=== PATIENT | male | born 1955 | race Caucasian/White ===

== ENCOUNTER 2020-12-01 11:00 | Outpatient (REF) | payer MEDICARE, SELFPAY ==
[2020-12-01 13:59] LABS: MANUAL DIFF FLAG NO
[2020-12-01 14:03] LABS: Basophils Percent Auto 0.6 % (0-2); Eosinophils Absolute Auto 0.1 X10*3/uL (0.0-0.4); Eosinophils Percent Auto 1.7 % (0-4); Hematocrit 46.4 % (42-52); Hemoglobin 15.2 g/dl (14.0-18.0); Imm Gran Abs Auto 0.01 X10*3/uL (0.00-0.03); Imm Gran Pct Auto 0.2 % (0.0-0.4); Lymphocytes Absolute Auto 1.5 X10*3/uL (1.2-4.9); Lymphocytes Percent Auto 28.1 % (20-40); Mean Corpuscular HGB Conc 32.8 g/dl (31.0-36.0); Mean Corpuscular Hemoglobin 30.5 pg (27.0-33.0); Mean Corpuscular Volume 93.2 fL (80-98); Monocytes Absolute Auto 0.3 X10*3/uL (0.1-1.2); Monocytes Percent Auto 5.2 % (2-11); Neutrophils Absolute Auto 3.3 X10*3/uL (2.0-8.3); Neutrophils Percent Auto 64.2 % (45-73); Platelet Count 294 X10*3/uL (160-400); Red Blood Count 4.98 X10*6/uL (4.60-5.80); Red Cell Distribution Width 12.2 % (11.0-16.0); White Blood Count 5.2 X10*3/uL (4.8-10.8)
[2020-12-01 14:25] LABS: Alanine Aminotransferase 30 U/L (0-40); Albumin Level 4.6 g/dL (3.5-5.0); Alkaline Phosphatase 65 U/L (39-117); Anion Gap 13 (12-20); Aspartate Amino Transferase 21 U/L (5-37); Blood Urea Nitrogen 16 mg/dL (9-16); Calcium 9.5 mg/dL (8.4-10.2); Carbon Dioxide 30 mmol/L (22-29); Chloride 104 mmol/L (96-108); Cholesterol 176 mg/dL; Estimated Glomerular Filt Rate > 60; Glucose Random 79 mg/dL (60-115); HDL Cholesterol 49 mg/dL; LDL Cholesterol Calculated 112 mg/dl; Potassium 4.5 mmol/L (3.3-5.1); Sodium 142 mmol/L (135-145); Total Protein 7.3 g/dL (6.5-8.0); Triglycerides 79 mg/dL
[2020-12-01 14:48] LABS: Prostate Specific Antigen Scr 1.85 ng/mL (<0.05-4.0); Thyroid Stimulating Hormone 2.32 uIU/mL (0.32-4.0)
[2020-12-01 15:35] LABS: Folate 12.2 ng/mL (> or = 4.0); Vitamin B12 988 pg/mL (200-900)
[2020-12-02 08:16] LABS: Follicle Stimulating Hormone 9.8 mIU/mL (1.6-8.0); Lutenizing Hormone 8.2 mIU/mL (1.6-15.2); Prolactin 6.5 ng/mL (2.0-18.0)
[2020-12-05 09:37] LABS: Testosterone, Total 470 ng/dL (250-1100)
== END 2020-12-01 11:01 | disposition home or self-care (01) ==
LOC: HO.HMGCLDS 11:00
PROVIDERS: PCP Internal Medicine; Visit Provider Internal Medicine
DX: E66.9 Obesity, unspecified (principal); N52.9 Male erectile dysfunction, unspecified; E78.00 Pure hypercholesterolemia, unspecified
CPT/HCPCS: 36415; 80053; 80061; 82607; 82746; 83001; 83002; 84146; 84153; 84403; 84439; 84443; 85025

== ENCOUNTER 2021-04-26 12:50 | Outpatient (REF) | payer MEDICARE, SELFPAY ==
--- NOTE | ~2021-04-26 | XR_ITS ---
EXAMINATION: XR CHEST CLINICAL INFORMATION: Cough. COMPARISON: Chest 02/03/2014 TECHNIQUE: 2 views of the chest were obtained. FINDINGS: The lungs are well-expanded with a moderate sized 2.8 cm x 2.12 cm nodule right upper lobe.. No additional nodules seen. There is no acute consolidation, pleural effusion or thickening. The heart size and pulmonary vascularity is normal. No gross bony abnormality seen. XR/XR chest 2V IMPRESSION: 2.8 cm new nodule right upper lobe. No acute cardiopulmonary process seen.
[2021-04-26 14:55] LABS: Influenza A PCR NEGATIVE (Negative); Influenza B PCR NEGATIVE (Negative); Resp Syncy Virus RNA Qual PCR NEGATIVE (Negative); SARS COV2 PCR INHOUSE NEGATIVE (Negative)
== END 2021-04-26 12:51 | disposition home or self-care (01) ==
LOC: HO.HMGCX 12:50
PROVIDERS: PCP Internal Medicine; Visit Provider Family Medicine
DX: Z20.822 Contact with and (suspected) exposure to COVID-19 (principal); R05.9 Cough, unspecified; R06.2 Wheezing
CPT/HCPCS: 0241U; 36415; 71046

== ENCOUNTER 2021-09-28 10:47 | Outpatient (REF) | payer MEDICARE, SELFPAY ==
[2021-09-28 13:47] LABS: MANUAL DIFF FLAG NO
[2021-09-28 13:53] LABS: Basophils Percent Auto 0.6 % (0-2); Eosinophils Absolute Auto 0.2 X10*3/uL (0.0-0.4); Eosinophils Percent Auto 3.2 % (0-4); Hematocrit 46.7 % (42.0-52.0); Hemoglobin 15.5 g/dl (14.0-18.0); Imm Gran Abs Auto 0.02 X10*3/uL (0.00-0.03); Imm Gran Pct Auto 0.3 % (0.0-0.4); Lymphocytes Absolute Auto 1.5 X10*3/uL (1.2-4.9); Lymphocytes Percent Auto 21.3 % (20-40); Mean Corpuscular HGB Conc 33.2 g/dl (31.0-36.0); Mean Corpuscular Hemoglobin 30.9 pg (27.0-33.0); Mean Corpuscular Volume 93.2 fL (80.0-98.0); Mean Platelet Volume 10.2 fL (9.4-12.4); Monocytes Absolute Auto 0.4 X10*3/uL (0.1-1.2); Monocytes Percent Auto 5.7 % (2-11); Neutrophils Absolute Auto 4.7 x10*3/uL (2.0-8.3); Neutrophils Percent Auto 68.9 % (45-73); Platelet Count 287 X10*3/uL (160-400); Red Blood Count 5.01 X10*6/uL (4.60-5.80); Red Cell Distribution Width 12.4 % (11.0-16.0); White Blood Count 6.9 X10*3/uL (4.8-10.8)
[2021-09-28 14:14] LABS: Alanine Aminotransferase 21 U/L (0-40); Albumin Level 4.2 g/dL (3.5-5.0); Alkaline Phosphatase 74 U/L (39-117); Anion Gap 12 (12-20); Aspartate Amino Transferase 18 U/L (5-37); Bilirubin Total 0.8 mg/dL (0.0-1.0); Blood Urea Nitrogen 14 mg/dL (9-16); Calcium 9.4 mg/dL (8.4-10.2); Carbon Dioxide 29 mmol/L (22-29); Chloride 103 mmol/L (96-108); Cholesterol 169 mg/dL; Estimated Glomerular Filt Rate > 60; Glucose Random 93 mg/dL (60-115); HDL Cholesterol 49 mg/dL; LDL Cholesterol Calculated 107 mg/dl; Potassium 4.4 mmol/L (3.3-5.1); Sodium 140 mmol/L (135-145); Total Protein 6.9 g/dL (6.5-8.0); Triglycerides 69 mg/dL
[2021-09-28 14:36] LABS: Free T4 (Free Thyroxine) 0.96 ng/dL (0.71-1.85); Prostate Specific Antigen Scr 1.63 ng/mL (<0.05-4.0); Thyroid Stimulating Hormone 3.35 uIU/mL (0.32-4.0)
[2021-09-28 14:37] LABS: Folate 9.9 ng/mL (> or = 4.0); Vitamin B12 845 pg/mL (200-900)
== END 2021-09-28 10:48 | disposition home or self-care (01) ==
LOC: HO.HMGCLDS 10:47
PROVIDERS: PCP Internal Medicine; Visit Provider Internal Medicine
DX: E66.9 Obesity, unspecified (principal); E78.00 Pure hypercholesterolemia, unspecified; Z12.5 Encounter for screening for malignant neoplasm of prostate
CPT/HCPCS: 36415; 80053; 80061; 82607; 82746; 84153; 84439; 84443; 85025

== ENCOUNTER 2021-09-30 08:22 | Outpatient (REF) | payer MEDICARE, SELFPAY ==
--- NOTE | ~2021-09-30 | CT_ITS ---
EXAMINATION: CT CHEST WITH CONTRAST CLINICAL INFORMATION: Solitary pulmonary nodule. COMPARISON: Chest x-ray 04/26/2021. TECHNIQUE: Multidetector volumetric CT imaging of the chest was obtained after the administration of 50 mL of Omnipaque 350 intravenous contrast without immediate adverse reactions. Axial MIP volume rendering provided. Sagittal and coronal reformatted images were obtained. This CT examination was performed using dose optimization techniques as appropriate, variously including the following: *Automated exposure control *Adjustment of mA and/or kV according to patient size (this includes techniques or standardized protocols for targeted exams where dose is matched to indication/reason for exam; i.e. 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 LUNGS: The lungs are well expanded and clear of acute pneumonic process. There is a large solid nodule right upper lobe measuring 3.2 x 2.0 x 2.2 cm on axial image 18/3 and sagittal image 75/7. It measures 103 Hounsfield units. No additional lesion seen. There is mild thickening of left lateral major fissure. There is 4 mm nodular thickening left major fissure axial image 66/8. MEDIASTINUM: The thyroid lobes are symmetric and normal. Heart size and the great vessels are normal caliber. Central trachea and the bronchi are widely patent. There is no pericardial effusion seen. There are no coronary artery calcifications. PLEURA: There is no pleural effusion. No pleural mass or thickening. AXILLA: There are small shotty lymph nodes seen in bilateral axilla. The chest wall appears unremarkable. UPPER ABDOMEN: Visualized liver, spleen, pancreas and bilateral adrenal glands unremarkable. There are bilateral peripelvic renal cysts. OSSEOUS STRUCTURES: No lytic or sclerotic process seen. CT/CT chest w con IMPRESSION: Large right upper lobe solid nodule. Recommend PET/CT exam and if positive CT-guided nodule biopsy. Fleischner guidelines were followed.
== END 2021-09-30 08:23 | disposition home or self-care (01) ==
LOC: HO.CT 08:22
PROVIDERS: Visit Provider Internal Medicine
DX: R91.1 Solitary pulmonary nodule (principal)
CPT/HCPCS: 71260

== ENCOUNTER → 2021-10-14 09:12 | Outpatient (BNVA) | payer MEDICARE, SELFPAY | PROVIDERS: PCP Internal Medicine; Visit Provider Surgery | DX: R91.1 Solitary pulmonary nodule (principal) | CPT/HCPCS: 99202 ==

== ENCOUNTER 2021-10-19 09:49 | Outpatient (REF) | payer MEDICARE, SELFPAY ==
--- NOTE | 2021-10-19 10:02 | PFT_ITS ---
INDICATION: Pulmonary nodule. SPIROMETRY: FEV1 to FVC 78% with an FEV1 of 2.76 L, which is 82% predicted. FVC of 3.53 L, which is 78% predicted. No significant response to bronchodilators noted. Maximum voluntary ventilation 82% predicted. LUNG VOLUMES: Total lung capacity 84% predicted with an expiratory reserve volume of 53% predicted. DIFFUSION CAPACITY: DLCO 84% predicted. COMPARISONS: None. INTERPRETATION: No obstructive nor restrictive ventilatory defects identified. No significant response to bronchodilators noted. Lung volumes are low normal, likely secondary to the elevated BMI and diffusion capacity is within normal limits. Clinical correlation warranted. MD EDDIE Bourgeois/CLARISSA / [id number]
== END 2021-10-19 09:50 | disposition home or self-care (01) ==
LOC: HO.RESP 09:49
PROVIDERS: PCP Internal Medicine; Visit Provider Surgery
DX: R91.1 Solitary pulmonary nodule (principal)
CPT/HCPCS: 94060; 94727; 94729

== ENCOUNTER 2021-10-25 11:10 | Outpatient (REF) | payer MEDICARE, SELFPAY ==
--- NOTE | ~2021-10-25 | PE_ITS ---
EXAMINATION: Fluorine-18 FDG PET/CT Scan CLINICAL INDICATION: Initial treatment management. Pulmonary nodule. PROCEDURE: 66 minutes following the intravenous administration of 20.6 mCi of fluorine 18 FDG, images from the base of the skull to the mid thighs were obtained using a combined PET/CT scanner with CT scan based attenuation correction. No oral contrast was administered. No intravenous contrast was administered. Transverse, coronal, sagittal, and volume reconstruction projections were obtained. The patient's blood glucose as determined by a finger stick, was 84 mg/dl immediately prior to injection. Total CT exam dose-length product 908.77 mGy-cm * These CT images were obtained using dose optimization techniques as appropriate, variously including the following: Automated exposure control * Adjustment of mA and/or kV according to patient size (this includes techniques or standardized protocols for targeted exams where dose is matched to indication/reason for exam; i.e. extremities or head) * Use of iterative reconstruction technique COMPARISON: No previous PET/CT scan is available for comparison. CT scan of the chest dated 09/30/2021 is available for comparison. FINDINGS: (Slice numbers described in this report are numbered superiorly to inferiorly with slice #1 in the head) NECK AND VISUALIZED HEAD: There is a small discrete focus of abnormally increased FDG activity abutting the right side of the upper trachea and within the right thyroid lobe, SUVmax 5.2, slice 60/267 there is a subtle subcentimeter hypodensity suggested at this site on the corresponding CT images but this is not well visualized. However, on the prior diagnostic CT scan performed with intravenous contrast dated 09/30/2021 there is a 0.7 x 0.4 cm hypodensity at this site in the right thyroid lobe that corresponds very well to this focus which is at the level of the sternal notch. No other foci of abnormal FDG activity are present in the neck or visualized head. All the other activity in this region appears physiological. There is no cervical lymphadenopathy. THORAX: There is a mildly FDG avid solid right upper lobe pulmonary nodule, SUVmax 4.4, slice 74/267. 3.1 x 2.1 cm in largest transverse dimensions at approximately 2.6 cm cephalocaudad. There is a 0.4 cm fissural nodule in the left interlobar fissure, slice 87/267, too small to be characterized on the FDG PET images. No other pulmonary nodules are visualized. The appearance of the lungs is unchanged from the 09/30/[address] scan. There is no pleural or pericardial fluid or pneumothorax. There is a weakly FDG avid upper right paratracheal lymph node that shows SUVmax 2.0. This measures 0.7 x 0.6 cm in largest transverse dimensions on the CT images, and this FDG activity is abnormal for such a small lymph node which is too small to be well characterized on the FDG PET images. There is no additional mediastinal, supraclavicular, or axillary lymphadenopathy. ABDOMEN AND PELVIS: There are no foci of abnormal FDG activity in the abdomen or pelvis. There is mild FDG activity throughout the gastrointestinal tract without a suspicious focal component. There is diverticulosis without evidence of diverticulitis. The hollow viscera are otherwise unremarkable. The liver, spleen, gallbladder, adrenal glands, and pancreas are unremarkable. Bilateral hypodense renal cysts are present, and most of these are visualized on the CT scan of the chest dated 09/30/2021 and appear unchanged but the more inferior of these cysts are outside the [id number] of this CT scan and cannot be compared. These are all photopenic on the FDG PET images and likely represent simple cysts. MUSCULOSKELETAL: There are no foci of abnormal FDG activity present in the osseous structures. There are diffuse degenerative changes in the spine and a mild thoracolumbar scoliosis are noted. VASCULAR: No significant abnormalities are present. PET/PET CT fusion skull to thigh IMPRESSION: 1. An FDG avid right upper lobe pulmonary mass is likely malignant. 2. An FDG avid subcentimeter right thyroid nodule is noted and is strongly suspicious for a thyroid malignancy. Further characterization of this with ultrasound-guided fine-needle aspirate is recommended. 3. A small subcentimeter upper right paratracheal lymph node is present and is suspicious for malignancy because of the intensity of FDG activity in such a small lymph node. 4. No additional abnormalities suspicious for other metastatic or malignant lesions are noted.
== END 2021-10-25 11:11 | disposition home or self-care (01) ==
LOC: HO.PET 11:10
PROVIDERS: PCP Internal Medicine; Visit Provider Surgery
DX: Z13.89 Encounter for screening for other disorder (principal)

== ENCOUNTER → 2021-12-02 08:46 | Outpatient (BNVA) | payer MEDICARE, SELFPAY | PROVIDERS: PCP Internal Medicine; Visit Provider Surgery | DX: D3A.090 Benign carcinoid tumor of the bronchus and lung (principal); R91.1 Solitary pulmonary nodule | CPT/HCPCS: 99212 ==

== ENCOUNTER → 2022-01-03 15:33 | Outpatient (BNV) | payer MEDICARE, SELFPAY | PROVIDERS: PCP Internal Medicine; Referring Provider Physician Assistant; Visit Provider Internal Medicine | DX: E04.1 Nontoxic single thyroid nodule (principal) | CPT/HCPCS: 99205; 99214 ==

== ENCOUNTER 2022-01-11 14:06 | Outpatient (REF) | payer MEDICARE, SELFPAY ==
[2022-01-11 16:26] LABS: MANUAL DIFF FLAG NO
[2022-01-11 16:31] LABS: Basophils Percent Auto 0.8 % (0-2); Eosinophils Absolute Auto 0.3 X10*3/uL (0.0-0.4); Eosinophils Percent Auto 5.7 % (0-4); Hematocrit 46.6 % (42.0-52.0); Hemoglobin 15.6 g/dl (14.0-18.0); Imm Gran Abs Auto 0.02 X10*3/uL (0.00-0.03); Imm Gran Pct Auto 0.4 % (0.0-0.4); Lymphocytes Absolute Auto 0.8 X10*3/uL (1.2-4.9); Lymphocytes Percent Auto 15.5 % (20-40); Mean Corpuscular HGB Conc 33.5 g/dl (31.0-36.0); Mean Corpuscular Hemoglobin 31.3 pg (27.0-33.0); Mean Corpuscular Volume 93.4 fL (80.0-98.0); Mean Platelet Volume 9.8 fL (9.4-12.4); Monocytes Absolute Auto 0.6 X10*3/uL (0.1-1.2); Monocytes Percent Auto 11.6 % (2-11); Neutrophils Absolute Auto 3.2 x10*3/uL (2.0-8.3); Platelet Count 255 X10*3/uL (160-400); Red Blood Count 4.99 X10*6/uL (4.60-5.80); White Blood Count 4.9 X10*3/uL (4.8-10.8)
[2022-01-11 16:37] LABS: Appearance Urine CLEAR; Color Urine DK YELLOW; Glucose Urine UA NEG (NEG); Leukocyte Esterase Urine NEG (NEG); Nitrite Urine NEG (NEG); Specific Gravity - Urine 1.025 (1.005-1.025); UACC Culture Trigger NO; Urine Blood TRACE (NEG); Urine Ketones NEG (NEG); Urine Protein TRACE MG/DL (NEG-TRACE)
[2022-01-11 16:51] LABS: WBC Urine 0 /HPF (0-4)
[2022-01-11 16:52] LABS: Calcium Oxalate Crystals Urine 3+ /LPF
[2022-01-11 17:07] LABS: Alanine Aminotransferase 621 U/L (0-40); Albumin Level 4.5 g/dL (3.5-5.0); Alkaline Phosphatase 333 U/L (39-117); Anion Gap 14 (12-20); Aspartate Amino Transferase 163 U/L (5-37); Bilirubin Total 4.5 mg/dL (0.0-1.0); Blood Urea Nitrogen 11 mg/dL (9-16); Calcium 10.1 mg/dL (8.4-10.2); Carbon Dioxide 26 mmol/L (22-29); Chloride 101 mmol/L (96-108); Estimated Glomerular Filt Rate > 60; Glucose Random 98 mg/dL (60-115); Potassium 4.3 mmol/L (3.3-5.1); Sodium 137 mmol/L (135-145); Total Protein 7.3 g/dL (6.5-8.0)
== END 2022-01-11 14:07 | disposition home or self-care (01) ==
LOC: HO.HMGCLDS 14:06
PROVIDERS: PCP Internal Medicine; Visit Provider Physician Assistant
DX: R53.83 Other fatigue (principal)
CPT/HCPCS: 36415; 80053; 81001; 85025

== ENCOUNTER 2022-01-12 16:29 | Observation (INO) | payer MEDICARE, SELFPAY ==
--- NOTE | ~2022-01-12 | CT_ITS ---
EXAMINATION: CT ABDOMEN AND PELVIS WITHOUT CONTRAST CLINICAL INFORMATION: Elevated LFTs. History of carcinoid tumor, thyroid mass. COMPARISON: None TECHNIQUE: Multidetector volumetric imaging was performed from the superior aspect of the liver through the pubic symphysis. Sagittal and coronal reformatted images were obtained on the technologist's workstation. This CT examination was performed using dose optimization techniques as appropriate, variously including the following: *Automated exposure control *Adjustment of mA and/or kV according to patient size (this includes techniques or standardized protocols for targeted exams where dose is matched to indication/reason for exam; i.e. extremities or head) *Use of iterative reconstruction technique DLP: 796 mGy-cm FINDINGS: LUNG BASES: The visualized lung bases are unremarkable. LIVER, GALLBLADDER, AND BILIARY TREE: The liver is normal in size, shape, and attenuation. No focal hepatic lesion or biliary ductal dilatation is present. The gallbladder is unremarkable with no evidence of radiopaque gallstones, gallbladder wall thickening, or obvious pericholecystic inflammatory changes. PANCREAS: Unremarkable. SPLEEN: Unremarkable. ADRENAL GLANDS: Unremarkable. KIDNEYS AND URETERS: The kidneys are normal in size, shape, and attenuation. No hydronephrosis, hydroureter, or calculi seen. No perinephric stranding. There are bilateral parapelvic cysts and mid pole right cortical cyst. BLADDER: There is mild bladder wall thickening with no radiopaque calculi. GASTROINTESTINAL TRACT: There is moderate stool seen throughout the colon without distention. The small bowel loops are normal caliber. Appendix is normal caliber. ABDOMINAL WALL: No significant hernia is appreciated. LYMPH NODES: Normal. VASCULAR: Unremarkable. PELVIC VISCERA: There is moderate prostate enlargement. OSSEOUS STRUCTURES: There are degenerative disc changes L5-S1 and L2-L3 disc levels with mild ventral spondylosis. No lytic or sclerotic process seen. CT/CT abdomen pelvis wo con IMPRESSION: No acute intra-abdominal process seen. Bilateral peripelvic renal and midpole right renal cysts. Moderate constipation. Fleischner guidelines were followed.
--- NOTE | ~2022-01-12 | US_ITS ---
EXAMINATION: US ABDOMEN LIMITED CLINICAL INFORMATION: Elevated LFTs. COMPARISON: PET/CT 10/25/2021. TECHNIQUE: Real-time imaging of the liver and gallbladder. FINDINGS: Heterogeneous liver parenchyma with a nodular contour limiting evaluation of small lesions. However, accounting for these limitations, no discrete focal abnormalities identified. The gallbladder is contracted limiting its evaluation. There is diffuse gallbladder wall thickening measuring up to 0.5 cm with indeterminate heterogeneous internal content that could represent stones or sludge. No associated vascularity noted in this content. The common bile duct measures up to 0.4 cm in diameter. The right kidney measures 10.8 cm in length and demonstrates mild hydronephrosis. US/US abdomen limited IMPRESSION: 1. Heterogeneous liver with nodular contour suggesting hepatocellular disease and cirrhosis. 2. Limited evaluation of the gallbladder with equivocal wall thickening and nonspecific heterogeneous avascular internal content. If acute cholecystitis is suspected, correlation with a CT of the abdomen or HIDA nuclear medicine study is recommended. 3. Mild right hydronephrosis.
--- NOTE | ~2022-01-12 | MR_ITS ---
EXAMINATION: MR ABDOMEN WITHOUT CONTRAST CLINICAL INFORMATION: Transaminitis. Rule out obstruction COMPARISON: Noncontrast CT 01/12/2022 TECHNIQUE: MR abdomen is performed without gadolinium contrast. Thin section 3-D MRCP images were obtained. FINDINGS: LUNG BASES: The visualized lung bases are unremarkable. LIVER, GALLBLADDER, AND BILIARY TREE: The liver is normal in size, smooth in contour, and normal in signal. No focal hepatic lesion or biliary ductal dilatation is present. The gallbladder is unremarkable with no evidence of gallbladder wall thickening, or obvious pericholecystic inflammatory changes. Normal caliber common bile duct, approximately 3 mm in diameter. No biliary ductal dilatation or irregularity. No choledocholithiasis. PANCREAS: Limited noncontrast evaluation of the pancreas is normal. The pancreatic duct is SPLEEN: Unremarkable. ADRENAL GLANDS: Unremarkable. KIDNEYS AND URETERS: Numerous bilateral renal parapelvic cysts. There are additional well-circumscribed homogeneous T2 bright, T1 dark simple renal cysts. No new hydronephrosis. GASTROINTESTINAL TRACT: Visualized stomach, small bowel, and colon are nondilated. ABDOMINAL WALL: No significant hernia is appreciated. LYMPH NODES: No lymphadenopathy. VASCULAR: Unremarkable. OSSEOUS STRUCTURES: Marrow signal normal. MR/MR MRCP IMPRESSION: No biliary ductal dilatation. No choledocholithiasis.
[2022-01-12 18:36] VITALS: BP 147/93; PULSE 84; RESP 16; TEMP 36.9; O2SAT 98; BMI 30.5
[2022-01-12 19:03] LABS: MANUAL DIFF FLAG NO
[2022-01-12 19:04] LABS: Basophils Percent Auto 0.5 % (0-2); Eosinophils Absolute Auto 0.2 X10*3/uL (0.0-0.4); Eosinophils Percent Auto 4.1 % (0-4); Hematocrit 46.6 % (42.0-52.0); Hemoglobin 15.7 g/dl (14.0-18.0); Imm Gran Abs Auto 0.01 X10*3/uL (0.00-0.03); Imm Gran Pct Auto 0.2 % (0.0-0.4); Lymphocytes Percent Auto 16.3 % (20-40); Mean Corpuscular HGB Conc 33.7 g/dl (31.0-36.0); Mean Corpuscular Hemoglobin 31.2 pg (27.0-33.0); Mean Corpuscular Volume 92.5 fL (80.0-98.0); Monocytes Absolute Auto 0.6 X10*3/uL (0.1-1.2); Monocytes Percent Auto 9.3 % (2-11); Neutrophils Absolute Auto 4.1 x10*3/uL (2.0-8.3); Neutrophils Percent Auto 69.6 % (45-73); Platelet Count 221 X10*3/uL (160-400); Red Blood Count 5.04 X10*6/uL (4.60-5.80); Red Cell Distribution Width 13.1 % (11.0-16.0); White Blood Count 5.9 X10*3/uL (4.8-10.8)
[2022-01-12 19:10] LABS: Appearance Urine CLEAR; Color Urine DK YELLOW; Glucose Urine UA NEG (NEG); Leukocyte Esterase Urine NEG (NEG); Nitrite Urine NEG (NEG); PH 5.5 (5.0-8.0); Specific Gravity - Urine 1.015 (1.005-1.025); UACC Culture Trigger NO; Urine Blood TRACE (NEG); Urine Ketones 15 MG/DL (NEG); Urine Protein NEG (NEG-TRACE)
[2022-01-12 19:15] LABS: Calcium Oxalate Crystals Urine TRACE /LPF
[2022-01-12 19:17] LABS: Mucus Urine TRACE /LPF; Squamous Epithelial Cell Urine TRACE /LPF
[2022-01-12 19:18] LABS: Amorphous Sediment Urine TRACE /LPF; RBC Urine 0-2 /HPF (0); WBC Urine 0-2 /HPF (0-4)
[2022-01-12 19:23] LABS: Alanine Aminotransferase 512 U/L (0-40); Albumin Level 4.6 g/dL (3.5-5.0); Alkaline Phosphatase 403 U/L (39-117); Anion Gap 15 (12-20); Aspartate Amino Transferase 167 U/L (5-37); Bilirubin Direct 5.1 mg/dL (0.0-0.5); Bilirubin Total 7.2 mg/dL (0.0-1.0); Blood Urea Nitrogen 17 mg/dL (9-16); Carbon Dioxide 27 mmol/L (22-29); Chloride 100 mmol/L (96-108); Creatinine Clr Calc Pharmacy 90.3; Estimated Glomerular Filt Rate > 60; Glucose Random 97 mg/dL (60-115); Lipase 47 U/L (8-78); Potassium 4.9 mmol/L (3.3-5.1); Sodium 137 mmol/L (135-145); Total Protein 7.4 g/dL (6.5-8.0)
[2022-01-12 20:00] VITALS: BP 152/102; PULSE 91; RESP 15; TEMP 36.6; O2SAT 98
--- NOTE | 2022-01-12 20:15 | ED_ITS ---
HPI - Recheck/Abnormal Lab/Rx General Chief Complaint: Recheck/Abnormal Lab/Rx Stated Complaint: abnormal labs per scotty fonseca pain Time Seen by Provider: 01/12/22 19:56 Source: patient Mode of arrival: ambulatory Limitations: no limitations History of Present Illness HPI narrative: Patient comes to emergency room complaining of elevated LFTs. Patient states that yesterday they did some blood work because the patient has not been feeling quite right for approximately 1 week. Patient states he has been feeling more tired than usual and has noticed that his urine has grown delete been getting darker. Patient denies fever chills, no abdominal pain. 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 Patient has been healing well. States that he took for approximately 7 days 1300 mg of acetaminophen twice a day. Patient states that his only new medication is tamsulosin which was prescribed towards the beginning of the month. Patient stopped taking it because it was making him feel nauseous and tired. Patient states that he has been off tamsulosin for about 1 week and he has gradually been feeling better. Patient continues taking [place]eva[place] Related Data Home Medications Medication Instructions Recorded Confirmed cholecalciferol (vitamin D3) 25 25 mcg PO DAILY 07/07/20 01/04/22 mcg (1,000 unit) capsule cyanocobalamin (vitamin B-12) 1,000 mcg PO DAILY 07/07/20 01/04/22 1,000 mcg capsule fluorouracil 5 % topical cream 1 appl topical BID 09/08/20 01/04/22 psyllium husk 0.4 gram capsule 0.4 g PO BEDTIME 09/08/20 01/04/22 (Fiber (psyllium husk)) sodium chloride 2 % eye drops 1 drp ophthalmic (eye) DAILY 09/08/20 01/04/22 (Esteban 128) docusate sodium 100 mg capsule 1 cap PO BID 01/03/22 01/04/22 tamsulosin 0.4 mg capsule 0.4 mg PO DAILY 01/11/22 Previous Rx's Medication Instructions Recorded omeprazole 10 mg capsule,delayed 10 mg PO DAILY #30 caps 01/11/22 release Allergies Allergy/AdvReac Type Severity Reaction Status Date / Time penicillin V Allergy Unknown u Verified 01/11/22 13:39 Penicillins [PENICILLINS] Allergy Unknown RASH Verified 01/11/22 13:39 lisinopril AdvReac Intermediate cough Verified 01/11/22 13:39 Review of Systems Review of Systems: Constitutional : No Weight loss, No Fever, No Chills, No Night Sweats, complaining of fatigue ENT/Mouth : No Hearing loss, No Ear Pain, No Nasal Congestion, No Sinus Pain, No Hoarseness, No sore throat, No Rhinorrhea, No Swallowing Difficulty Eyes: No Eye Pain, No Swelling, No Redness, No Foreign Body, No Discharge, No Vision Changes Cardiovascular : No Chest Pain, No SOB, No Dyspnea on Exertion, No Orthopnea, No Edema, No Palpitations Respiratory : No Cough, No Sputum, No Wheezing, No Smoke Exposure, No Dyspnea Gastrointestinal : No Nausea, No Vomiting, No Diarrhea, No Constipation, No abdominal Pain, No Hematochezia, No Melena Genitourinary : no irregular bleeding, No Dysuria, No Urinary Frequency, No Humberto turia, No Urinary Incontinence, No Urgency, No Flank Pain, No Urinary Flow Changes, No Hesitancy Musculoskeletal : No joint pain, No Myalgias, No Joint Swelling Skin : No Skin Lesions, No rash, increased itchy skin Neuro : No Weakness, No Numbness, No Paresthesias, No Loss of Consciousness, No Dizziness, No Headache Psych : No Anxiety/Panic, No Depression, No SI/HI/AH/VH, No Social Issues, Heme/Lymph: No Bruising, No Bleeding,No Lymphadenopathy Endocrine : No Polyuria, No Polydipsia, No Temperature Intolerance [facility] Past Medical History Medical History Basal cell carcinoma, arm Carpal tunnel syndrome Crohn's disease (~1993) Degenerative disc disease, cervical Migraine Obesity with body mass index (BMI) of 30.0 to 39.9 Peripheral vascular disease Schamberg's disease Surgical History History of bronchoscopy (~2021) History of cataract surgery (~2017) History of colonoscopy (~2017) History of hydrocelectomy (~2018) History of inguinal hernia repair (~2015) History of mandibular surgery (~1972) History of surgery on arm Family History Family History Mother Stroke Father Skin cancer (melanoma) Paternal Grandfather Skin cancer (melanoma) Paternal Uncle FHx: cancer of prostate Leukemia Paternal Uncle Cancer Social History Social History Household Members: Significant Other Housing: House Alcohol intake: current Alcohol intake frequency: holidays/special occasions only Alcohol type: beer Patient Tobacco Use Status: Never used Tobacco e-Cigarette/Vaping Use: Never Used Second Hand Smoke Exposure: No Use of substances other than those prescribed or required for medical reasons: No Advance Directives: No Advance Directives Information Provided: No service: No Current occupational status: retired Cognitive needs: No Hearing needs: No Vision needs: Yes Physical Exam Vital Signs: Vital Signs: Last Vital Signs Temp 97.8 F 01/12/22 20:00 Pulse 85 01/12/22 22:04 Resp 16 01/12/22 22:04 BP 140/92 H 01/12/22 22:04 Pulse Ox 97 01/12/22 22:04 O2 Del Method 01/12/22 22:04 BMI result Body Mass Index 30.5 Const: Other: Appearance: Alert. Oriented X3. No acute distress. Eyes: Pupils equal, round and reactive to light. Mild sclera icterus ENT: Pharynx normal. Neck: Normal inspection. Neck supple. No lymph nodes noted. No crepitus CVS: Normal heart rate and rhythm. Pulses normal. Normal S1 and S2 Respiratory: No respiratory distress. Breath sounds normal. No Wheezing. No rales Abdomen: Soft and nontender. No rigidity. No distention. Skin: Skin warm and dry. Skin is mildly icteric. Normal skin turgor. Extremities: No lower extremity edema. No Lacerations. No Rash Neuro: Oriented X 3. No motor deficit. No sensory deficit. Moving all extremities. No slurred speech. CN 2 through 12 grossly intact Psych: calm, cooperative, normal affect Course Course Course Narrative: Patient has been taking Tylenol 1300 mg twice a day, but it is below the toxic level. I discuss with our pharmacist the possibilityl of saw palmetto causing liver failure. Per pharmacy, seems that there is a possibility that saw palmetto can cause liver failure however this is a strange side effect Acetaminophen levels pending, hepatitis panel pending, ultrasound pending I discussed the ultrasound and CT scan findings with the patient. Patient may need HIDA scan. I discussed the above-mentioned with the hospitalist, patient being admitted. 22:50, patient complaining of epigastric burning sensation, patient states he has been having significant GERD symptoms for the last week. EKG and troponin pending. Patient receiving Protonix and GI cocktail at this time EKG shows sinus rhythm, heart rate 89, no ST segment depressions or elevations, no T-wave inversions, QTC 433, troponin negative MDM - Recheck/Abnormal Lab/Rx Lab Data Result diagrams: 01/12/22 18:51 01/12/22 18:51 Labs: Lab Results 01/12/22 01/12/22 01/12/22 Range/Units 18:51 18:51 18:51 WBC 5.9 (4.8-10.8) X10*3/uL RBC 5.04 (4.60-5.80) X10*6/uL Hgb 15.7 (14.0-18.0) g/dl Hct 46.6 (42.0-52.0) % MCV 92.5 (80.0-98.0) fL MCH 31.2 (27.0-33.0) pg MCHC 33.7 (31.0-36.0) g/dl RDW 13.1 (11.0-16.0) % Plt Count 221 (160-400) X10*3/uL MPV 9.0 L (9.4-12.4) fL Immature Gran % (Auto) 0.2 (0.0-0.4) % Neut % (Auto) 69.6 (45-73) % Lymph % (Auto) 16.3 L (20-40) % [place] % (Auto) 9.3 (2-11) % Eos % (Auto) 4.1 H (0-4) % Baso % (Auto) 0.5 (0-2) % Lymph # (Auto) 1.0 L (1.2-4.9) X10*3/uL [place] # (Auto) 0.6 (0.1-1.2) X10*3/uL Eos # (Auto) 0.2 (0.0-0.4) X10*3/uL Baso # (Auto) 0.0 (0.0-0.2) X10*3/uL Abs Immat Gran (auto) 0.01 (0.00-0.03) X10*3/uL Absolute Neuts (auto) 4.1 (2.0-8.3) x10*3/uL Absolute Nucleated RBC 0.000 (0.0-0.012) X10*3/uL Nucleated RBC % (auto) 0.0 (0.0-0.2) /100WBC Sodium 137 (135-145) mmol/L Potassium 4.9 (3.3-5.1) mmol/L Chloride 100 (96-108) mmol/L Carbon Dioxide 27 (22-29) mmol/L Anion Gap 15 (12-20) BUN 17 H D (9-16) mg/dL Creatinine 0.94 (0.5-1.4) mg/dL Estim Creat Clear Calc 90.3 Estimated GFR > 60 Random Glucose 97 (60-115) mg/dL Calcium 10.0 (8.4-10.2) mg/dL Total Bilirubin 7.2 H (0.0-1.0) mg/dL Direct Bilirubin 5.1 H (0.0-0.5) mg/dL AST 167 H (5-37) U/L ALT 512 H (0-40) U/L Alkaline Phosphatase 403 H D (39-117) U/L Troponin I High Sens < 3.5 (<3.5-35.0) ng/L Total Protein 7.4 (6.5-8.0) g/dL Albumin 4.6 (3.5-5.0) g/dL Lipase 47 (8-78) U/L Urine Color Urine Appearance Urine pH (5.0-8.0) Ur Specific [place] (1.005-1.025) Urine Protein (NEG-TRACE) MG/DL Urine Glucose (UA) (NEG) MG/DL Urine Ketones (NEG) MG/DL Urine Blood (NEG) Urine Nitrite (NEG) Ur Leukocyte Esterase (NEG) Urine RBC (0) /HPF Urine WBC (0-4) /HPF Ur Squamous Epith Cells /LPF Calcium Oxalate Crystal /LPF Amorphous Sediment /LPF Urine Bacteria /LPF Urine Mucus /LPF Salicylates (15-30) mg/dL Acetaminophen (<30) mcg/mL 01/12/22 01/12/22 Range/Units 18:58 20:22 WBC (4.8-10.8) X10*3/uL RBC (4.60-5.80) X10*6/uL Hgb (14.0-18.0) g/dl Hct (42.0-52.0) % MCV (80.0-98.0) fL MCH (27.0-33.0) pg MCHC (31.0-36.0) g/dl RDW (11.0-16.0) % Plt Count (160-400) X10*3/uL MPV (9.4-12.4) fL Immature Gran % (Auto) (0.0-0.4) % Neut % (Auto) (45-73) % Lymph % (Auto) (20-40) % [place] % (Auto) (2-11) % Eos % (Auto) (0-4) % Baso % (Auto) (0-2) % Lymph # (Auto) (1.2-4.9) X10*3/uL [place] # (Auto) (0.1-1.2) X10*3/uL Eos # (Auto) (0.0-0.4) X10*3/uL Baso # (Auto) (0.0-0.2) X10*3/uL Abs Immat Gran (auto) (0.00-0.03) X10*3/uL Absolute Neuts (auto) (2.0-8.3) x10*3/uL Absolute Nucleated RBC (0.0-0.012) X10*3/uL Nucleated RBC % (auto) (0.0-0.2) /100WBC Sodium (135-145) mmol/L Potassium (3.3-5.1) mmol/L Chloride (96-108) mmol/L Carbon Dioxide (22-29) mmol/L Anion Gap (12-20) BUN (9-16) mg/dL Creatinine (0.5-1.4) mg/dL Estim Creat Clear Calc Estimated GFR Random Glucose (60-115) mg/dL Calcium (8.4-10.2) mg/dL Total Bilirubin (0.0-1.0) mg/dL Direct Bilirubin (0.0-0.5) mg/dL AST (5-37) U/L ALT (0-40) U/L Alkaline Phosphatase (39-117) U/L Troponin I High Sens (<3.5-35.0) ng/L Total Protein (6.5-8.0) g/dL Albumin (3.5-5.0) g/dL Lipase (8-78) U/L Urine Color DK YELLOW Urine Appearance CLEAR Urine pH 5.5 (5.0-8.0) Ur Specific [place] 1.015 (1.005-1.025) Urine Protein NEG (NEG-TRACE) MG/DL Urine Glucose (UA) NEG (NEG) MG/DL Urine Ketones 15 (NEG) MG/DL Urine Blood TRACE (NEG) Urine Nitrite NEG (NEG) Ur Leukocyte Esterase NEG (NEG) Urine RBC 0-2 (0) /HPF Urine WBC 0-2 (0-4) /HPF Ur Squamous Epith Cells TRACE /LPF Calcium Oxalate Crystal TRACE /LPF Amorphous Sediment TRACE /LPF Urine Bacteria NONE /LPF Urine Mucus TRACE /LPF Salicylates < 5.0 L (15-30) mg/dL Acetaminophen < 1 (<30) mcg/mL Discharge Plan Discharge Clinical Impression: Elevated LFTs Patient Disposition: Admitted As Inpatient
[2022-01-12 20:46] LABS: Acetaminophen LAB < 1 mcg/mL (<30); Salicylate < 5.0 mg/dL (15-30)
[2022-01-12 22:04] VITALS: BP 140/92; PULSE 85; RESP 16; O2SAT 97
--- NOTE | 2022-01-12 22:50 | ECG_ITS ---
Test Reason : EPIGASTRIC BURNING Blood Pressure : / mmHG Vent. Rate : 089 BPM Atrial Rate : 089 BPM P-R Int : 152 ms QRS Dur : 086 ms QT Int : 356 ms P-R-T Axes : -06 009 034 degrees QTc Int : 433 ms Normal sinus rhythm with sinus arrhythmia Normal ECG When compared with ECG of 27-MAY-2018 14:23, No significant change was found Referred By: Noemi Martell Electronically Signed By:DANNY SHERMAN
--- NOTE | 2022-01-12 22:54 | P.HPHOSP_ITS ---
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 Patient reports that after leaving the hospital post his lobectomy he was doing well, but he has started a new medication which was tamsulosin for his BPH, ever starting the tamsulosin patient started feeling labs E, tired, sluggish, he noticed his urine was getting darker and no matter how much water he drank a remain dark, after using it for about 28 days he decided to stop the medication on Sunday. He reports that he felt significantly better after stopping the medication but his urine continue to be yellow. And he continued to just not feel back to his baseline. He went to Urgent Care, they did labs, found him to have abnormal liver function test and sent him to the hospital. Patient reports that he has been using Tylenol 625 x2 q. 12 hours but has not been taking more of that. He denies having any fever or chills, no abdominal pain, no nausea vomiting, no diarrhea constipation, denies any urinary symptom and no lower extremity edema. He reports that he has not noticed any yellowing of his skin. Besides the generalized fatigue and feeling lousy has not had any acute illness On arrival to the ED patient hemodynamically stable with no significant abnormal vitals Labs are significant for WBC count of 5.9, hemoglobin of 15.7, BUN of 17, creatinine of 0.94, total bili of 7.2, direct bili of 5.1, AST of 167, ALT of 512, alk-phos of 4 3, UA negative, salicylate level less than 5, estimate of level negative, COVID-[address] showed no acute intra-abdominal process, the liver is normal in size, shape and attenuation, no focal hepatic lesion or biliary ductal dilatation is present. The gallbladder is unremarkable. Abdominal ultrasound on the other hand showed heterogeneous liver with nodular contour suggesting hepatocellular disease and cirrhosis Patient will be admitted for further evaluation Review of Systems Review of Systems: Yes all other systems are reviewed and are negative [facility] Medical History (Updated 01/13/22 @ 06:46 by Betzy Tavarez MD) Basal cell carcinoma, arm Carcinoid tumor of lung Carpal tunnel syndrome Crohn's disease (~1993) Degenerative disc disease, cervical Migraine Obesity with body mass index (BMI) of 30.0 to 39.9 Peripheral vascular disease Schamberg's disease Family History Mother Stroke Father Skin cancer (melanoma) Paternal Grandfather Skin cancer (melanoma) Paternal Uncle FHx: cancer of prostate Leukemia Paternal Uncle Cancer Surgical History (Updated 01/13/22 @ 06:46 by Betzy Tavarez MD) History of bronchoscopy (~2021) History of cataract surgery (~2017) History of colonoscopy (~2017) History of hydrocelectomy (~2018) History of inguinal hernia repair (~2015) History of lobectomy of lung History of mandibular surgery (~1972) History of surgery on arm Social History Household Members: Significant Other Housing: House Alcohol intake: current Alcohol intake frequency: holidays/special occasions only Alcohol type: beer Patient Tobacco Use Status: Never used Tobacco e-Cigarette/Vaping Use: Never Used Second Hand Smoke Exposure: No Use of substances other than those prescribed or required for medical reasons: No Advance Directives: No Advance Directives Information Provided: No service: No Current occupational status: retired Cognitive needs: No Hearing needs: No Vision needs: Yes Meds Allergies Allergy/AdvReac Type Severity Reaction Status Date / Time penicillin V Allergy Unknown u Verified 01/11/22 13:39 Penicillins [PENICILLINS] Allergy Unknown RASH Verified 01/11/22 13:39 lisinopril AdvReac Intermediate cough Verified 01/11/22 13:39 Home Medications Medication Instructions Recorded Confirmed Last Taken Type cholecalciferol (vitamin D3) 25 25 mcg PO DAILY 07/07/20 01/13/22 Unknown History mcg (1,000 unit) capsule cyanocobalamin (vitamin B-12) 1,000 mcg PO DAILY 07/07/20 01/13/22 Unknown History 1,000 mcg capsule Physical Exam Vital Signs and Narrative: Vital Signs: Last Vital Signs Temp 97.8 F 01/12/22 20:00 Pulse 85 01/12/22 22:04 Resp 16 01/12/22 22:04 BP 140/92 H 01/12/22 22:04 Pulse Ox 97 01/12/22 22:04 O2 Del Method 01/12/22 22:04 BMI result Body Mass Index 30.5 Const: General: cooperative and no acute distress Orientation/consciousness: patient oriented x3 HEENT: Other: Presence of sclera icterus Eyes: General: appearance normal, both eyes and all related structures Resp: Effort & Inspection: normal respiratory effort Auscultation: clear to auscultation bilaterally Cardio: Rate: regular rate Rhythm: regular rhythm GI: Palpation (GI): Soft to palpation Auscultation: normal bowel sounds Skin: Other: Jaundice can Neuro: General: patient oriented x3 Cognition (Neuro): normal cognition Extrem: General: Yes normal to inspection and Yes no pedal edema Results Labs CBC and Chem 7: 01/12/22 18:51 01/12/22 18:51 Labs: Laboratory Results - last 24 hr 01/12/22 01/12/22 01/12/22 18:51 18:51 18:58 MCV 92.5 MCH 31.2 MCHC 33.7 RDW 13.1 Plt Count 221 MPV 9.0 L Immature Gran % (Auto) 0.2 Neut % (Auto) 69.6 Lymph % (Auto) 16.3 L [place] % (Auto) 9.3 Eos % (Auto) 4.1 H Baso % (Auto) 0.5 Lymph # (Auto) 1.0 L [place] # (Auto) 0.6 Eos # (Auto) 0.2 Baso # (Auto) 0.0 Abs Immat Gran (auto) 0.01 Absolute Neuts (auto) 4.1 Absolute Nucleated RBC 0.000 Nucleated RBC % (auto) 0.0 Anion Gap 15 Estim Creat Clear Calc 90.3 Estimated GFR > 60 Random Glucose 97 Calcium 10.0 Total Bilirubin 7.2 H Direct Bilirubin 5.1 H AST 167 H ALT 512 H Alkaline Phosphatase 403 H D Total Protein 7.4 Albumin 4.6 Lipase 47 Urine Color DK YELLOW Urine Appearance CLEAR Urine pH 5.5 Ur Specific [place] 1.015 Urine Protein NEG Urine Glucose (UA) NEG Urine Ketones 15 Urine Blood TRACE Urine Nitrite NEG Ur Leukocyte Esterase NEG Urine RBC 0-2 Urine WBC 0-2 Ur Squamous Epith Cells TRACE Calcium Oxalate Crystal TRACE Amorphous Sediment TRACE Urine Bacteria NONE Urine Mucus TRACE Salicylates Acetaminophen 01/12/22 20:22 MCV MCH MCHC RDW Plt Count MPV Immature Gran % (Auto) Neut % (Auto) Lymph % (Auto) [place] % (Auto) Eos % (Auto) Baso % (Auto) Lymph # (Auto) [place] # (Auto) Eos # (Auto) Baso # (Auto) Abs Immat Gran (auto) Absolute Neuts (auto) Absolute Nucleated RBC Nucleated RBC % (auto) Anion Gap Estim Creat Clear Calc Estimated GFR Random Glucose Calcium Total Bilirubin Direct Bilirubin AST ALT Alkaline Phosphatase Total Protein Albumin Lipase Urine Color Urine Appearance Urine pH Ur Specific [place] Urine Protein Urine Glucose (UA) Urine Ketones Urine Blood Urine Nitrite Ur Leukocyte Esterase Urine RBC Urine WBC Ur Squamous Epith Cells Calcium Oxalate Crystal Amorphous Sediment Urine Bacteria Urine Mucus Salicylates < 5.0 L Acetaminophen < 1 Imaging Radiologist's Impressions: Impressions Abdomen Ultrasound 01/12/22 20:56 IMPRESSION: 1. Heterogeneous liver with nodular contour suggesting hepatocellular disease and cirrhosis. 2. Limited evaluation of the gallbladder with equivocal wall thickening and nonspecific heterogeneous avascular internal content. If acute cholecystitis is suspected, correlation with a CT of the abdomen or HIDA nuclear medicine study is recommended. 3. Mild right hydronephrosis. Abdomen/Pelvis CT 01/12/22 22:00 IMPRESSION: No acute intra-abdominal process seen. Bilateral peripelvic renal and midpole right renal cysts. Moderate constipation. Fleischner guidelines were followed. Assessment and Plan (1) Transaminitis: Status: Acute (2) Hyperbilirubinemia: Status: Acute Plan 66-year-old male with past medical history of carcinoid tumor status post right upper lobe lobectomy about a month ago presents to the hospital with yellowing of urine and overall not feeling well and having abnormal labs found at urgent care # transaminitis - although ultrasound reports hepatocellular disease as well as cirrhosis, there is no evidence of that on CT of the abdomen - estimate of 11-, patient denies any excessive alcohol intake - will start IV fluids - otitis panel, autoimmune panel pending - gastroenterology consulted # hyperbilirubinemia - patient has no significant anemia, mostly direct - imaging as above - GI consult id - follow bilirubin level DVT prophylaxis: Lovenox Quality Stroke Does the patient have a stroke diagnosis?: No VTE Prior VTE?: No VTE Risk Level:: Medical - low VTE Device Contraindication: N/A - Device Ordered VTE Drug Contraindication: Treatment Not Indicated
[2022-01-12] MEDS: Lidocaine HCl Viscous 2 % 15 ML SOLUTION MUCOUS MEM (23:07)
[2022-01-12] MEDS: Pantoprazole Sodium 40 MG/10 ML VIAL IVPUSH (23:07)
[2022-01-12] MEDS: Magnesium Hydrox/Alum Hydrox 30 ML ORAL.SUSP PO (23:08)
[2022-01-12 23:17] LABS: Troponin-I High Sensitivity < 3.5 ng/L (<3.5-35.0)
[2022-01-12 23:59] LABS: Ammonia 24 umol/L (13-55)
[2022-01-13] MEDS: 0.9 % Sodium Chloride Flush 3 ML SYRINGE IVFLUSH ×2 (00:11→08:04)
[2022-01-13 00:55] VITALS: BP 120/80; PULSE 78; RESP 14; TEMP 36.6; O2SAT 95
[2022-01-13 02:41] LABS: COVID-19 Test Negative (Negative); IDNOW Serial# 16C4AD1C
[2022-01-13 04:04] VITALS: BP 121/83; PULSE 73; RESP 14; TEMP 36.4; O2SAT 94
[2022-01-13 06:48] LABS: MANUAL DIFF FLAG NO
[2022-01-13 06:51] LABS: Basophils Percent Auto 0.6 % (0-2); Eosinophils Absolute Auto 0.3 X10*3/uL (0.0-0.4); Eosinophils Percent Auto 5.7 % (0-4); Hematocrit 44.7 % (42.0-52.0); Hemoglobin 14.8 g/dl (14.0-18.0); Imm Gran Abs Auto 0.01 X10*3/uL (0.00-0.03); Imm Gran Pct Auto 0.2 % (0.0-0.4); Lymphocytes Percent Auto 20.7 % (20-40); Mean Corpuscular HGB Conc 33.1 g/dl (31.0-36.0); Mean Corpuscular Hemoglobin 30.5 pg (27.0-33.0); Mean Corpuscular Volume 92.2 fL (80.0-98.0); Mean Platelet Volume 9.1 fL (9.4-12.4); Monocytes Absolute Auto 0.6 X10*3/uL (0.1-1.2); Monocytes Percent Auto 12.7 % (2-11); Neutrophils Absolute Auto 2.9 x10*3/uL (2.0-8.3); Neutrophils Percent Auto 60.1 % (45-73); Platelet Count 202 X10*3/uL (160-400); Red Blood Count 4.85 X10*6/uL (4.60-5.80); Red Cell Distribution Width 13.2 % (11.0-16.0); White Blood Count 4.9 X10*3/uL (4.8-10.8)
[2022-01-13 07:18] LABS: Alanine Aminotransferase 474 U/L (0-40); Alkaline Phosphatase 412 U/L (39-117); Anion Gap 14 (12-20); Aspartate Amino Transferase 189 U/L (5-37); Bilirubin Total 7.2 mg/dL (0.0-1.0); Blood Urea Nitrogen 15 mg/dL (9-16); Carbon Dioxide 24 mmol/L (22-29); Chloride 104 mmol/L (96-108); Creatinine Clr Calc Pharmacy 102.3; Estimated Glomerular Filt Rate > 60; Glucose Random 76 mg/dL (60-115); Potassium 4.2 mmol/L (3.3-5.1); Sodium 138 mmol/L (135-145); Total Protein 6.4 g/dL (6.5-8.0)
[2022-01-13 07:41] LABS: HIV AB/AG Nonreactive (Nonreactive); HIV Num 1 0.08 S/CO (0.00-0.99)
[2022-01-13 07:44] LABS: HBS Num1 0.77 mIU/mL (0-7.99); HBc Num1 0.11 S/CO (0.00-0.79); HBsAGNum1 0.15 S/CO (0.00-0.99); Hepatitis A Antibody IgM 0.11 Index (0-0.79); Hepatitis B Core Antibody Nonreactive (Nonreactive); Hepatitis B Surface Antigen Negative (Negative); ~HepC Num1 0.05 S/CO (0.00-0.79); ~Hepatitis A Antibody IgM Nonreactive (Nonreactive); ~Hepatitis B Surface Antibody NONREACTIVE (Nonreactive); ~Hepatitis C Antibody Nonreactive (Nonreactive)
--- NOTE | 2022-01-13 07:55 | PC.NURSE ---
beatris kwok hospitalist because pt had questions about ultrasound on his thyroid
[2022-01-13 08:36] VITALS: BP 127/88; PULSE 94; RESP 19; TEMP 36.7; O2SAT 97
--- NOTE | 2022-01-13 08:49 | PHA.MEDREC ---
Pharmacy Consult ? Medication Reconciliation Pharmacy has completed the medication reconciliation. Pt stated that he stopped taking his tamsulosin a few days ago because he doesn't like how drowsy it makes him; I noted that a lot of people take that medication at night and he was agreeable to try switching to nighttime dosing. He also stated that he took a healthy prostate supplement and that it was helpful but he has not taken it in a while.
--- NOTE | 2022-01-13 09:26 | MHC.HEMONC ---
Pt son called to say that his father was in the ER. He did not feel well and his oupatient labs were not good. LFTs elevated. I informed Dr Goodrich. I also booked thyroid u/s for 01/23 at 11:30 in [place]. Son notified.
--- NOTE | 2022-01-13 10:39 | MHC.CM.PN ---
Met with patient in regards to discharge planning. Patient lives with his girlfriend, ambulates with a walking stick and had no services prior to coming to the hospital. No services anticipated to be needed because patient is not homebound. PCP verified. Copy of HCP obtained from [facility]. Obs notice explained and signed. Patient received 3 Pfizer vaccines. Patient's girlfriend will transport patient home when medically stable. Continue to monitor for d/c needs.
[2022-01-13 11:15] VITALS: BP 137/76; PULSE 79; RESP 16; TEMP 36.7; O2SAT 97
[2022-01-13 13:35] LABS: INTERNATIONAL NORM RATIO 1.1 (0.9-1.1); Prothrombin Time 12.1 SEC (10.0-13.1)
--- NOTE | 2022-01-13 15:11 | P.PNIM_ITS ---
Subjective Subjective Date of Service: 01/13/22 Interval History: the patient was seen and evaluated this morning complaining mainly of heartburn, reflux and epigastric pain still reporting dark urine No reported other overnight events. Systemic review: No fever, chills or weakness No chest pain, palpitation No shortness of breath or coughing mild epigastric abdominal pain, reporting nausea and feeling heartburn No urinary symptoms No any rash or wounds Physical Exam Vital Signs: Vital Signs: Last Vital Signs Temp 98.0 F 01/13/22 11:15 Pulse 79 01/13/22 11:15 Resp 16 01/13/22 11:15 BP 137/76 01/13/22 11:15 Pulse Ox 97 01/13/22 11:15 O2 Del Method 01/13/22 11:15 BMI result Body Mass Index 30.5 Const: Other: Constitutional : Alert, oriented, not in distress eyEs: mildly jaundiced sclera Neck : Normal inspection, Supple Cardiovascular : RRR, no JVP, no lower extremity edema Respiratory : fair bilateral air entry, no crackles, wheezes or rhonchi Gastrointestinal: soft, lax, Normal bowel sounds, Non tender Skin : Warm, Dry Neurological : Alert & oriented x3, No focal deficit , CN 2-12 within normal Objective Data Active Medications Omeprazole (Omeprazole 20 Mg/10 Ml Susp.Recon) 20 mg PO DAILY@0630 [facility] Last Admin: 01/13/22 14:13 Dose: Not Given Documented By: THU Non-Admin Reason: Med Not Available Ondansetron HCl (Ondansetron Hcl 4 Mg/2 Ml Vial) 4 mg IVPUSH Q8H PRN PRN Reason: Nausea and Vomiting Sodium Chloride (0.9 % Sodium Chloride Flush 3 Ml Syringe) 3 ml IVFLUSH QSHIFT [facility] Last Admin: 01/13/22 15:10 Dose: Not Given Documented By: ANDREA Non-Admin Reason: Med Not Available Labs CBC & Chem 7: 01/13/22 06:38 01/13/22 06:38 Labs: Laboratory Results - last 24 hr 01/12/22 01/12/22 01/12/22 18:51 18:51 18:51 MCV 92.5 MCH 31.2 MCHC 33.7 RDW 13.1 Plt Count 221 MPV 9.0 L Immature Gran % (Auto) 0.2 Neut % (Auto) 69.6 Lymph % (Auto) 16.3 L [place] % (Auto) 9.3 Eos % (Auto) 4.1 H Baso % (Auto) 0.5 Lymph # (Auto) 1.0 L [place] # (Auto) 0.6 Eos # (Auto) 0.2 Baso # (Auto) 0.0 Abs Immat Gran (auto) 0.01 Absolute Neuts (auto) 4.1 Absolute Nucleated RBC 0.000 Nucleated RBC % (auto) 0.0 PT INR Anion Gap 15 Estim Creat Clear Calc 90.3 Estimated GFR > 60 Random Glucose 97 Calcium 10.0 Total Bilirubin 7.2 H Direct Bilirubin 5.1 H AST 167 H ALT 512 H Alkaline Phosphatase 403 H D Ammonia Troponin I High Sens < 3.5 Total Protein 7.4 Albumin 4.6 Lipase 47 Urine Color Urine Appearance Urine pH Ur Specific [place] Urine Protein Urine Glucose (UA) Urine Ketones Urine Blood Urine Nitrite Ur Leukocyte Esterase Urine RBC Urine WBC Ur Squamous Epith Cells Calcium Oxalate Crystal Amorphous Sediment Urine Bacteria Urine Mucus Salicylates Acetaminophen COVID-19 ([place]) COVID-19 Clin Com Hepatitis A IgM Ab Hep Bs Antigen Hep Bs Antibody Hep B Core Total Ab Hepatitis C Ab (EIA) HIV 1&2 Ab/P24 Ag 4thGn 01/12/22 01/12/22 01/12/22 18:58 20:22 20:22 MCV MCH MCHC RDW Plt Count MPV Immature Gran % (Auto) Neut % (Auto) Lymph % (Auto) [place] % (Auto) Eos % (Auto) Baso % (Auto) Lymph # (Auto) [place] # (Auto) Eos # (Auto) Baso # (Auto) Abs Immat Gran (auto) Absolute Neuts (auto) Absolute Nucleated RBC Nucleated RBC % (auto) PT INR Anion Gap Estim Creat Clear Calc Estimated GFR Random Glucose Calcium Total Bilirubin Direct Bilirubin AST ALT Alkaline Phosphatase Ammonia Troponin I High Sens Total Protein Albumin Lipase Urine Color DK YELLOW Urine Appearance CLEAR Urine pH 5.5 Ur Specific [place] 1.015 Urine Protein NEG Urine Glucose (UA) NEG Urine Ketones 15 Urine Blood TRACE Urine Nitrite NEG Ur Leukocyte Esterase NEG Urine RBC 0-2 Urine WBC 0-2 Ur Squamous Epith Cells TRACE Calcium Oxalate Crystal TRACE Amorphous Sediment TRACE Urine Bacteria NONE Urine Mucus TRACE Salicylates < 5.0 L Acetaminophen < 1 COVID-19 ([place]) COVID-19 Clin Com Hepatitis A IgM Ab Nonreactive Hep Bs Antigen Negative Hep Bs Antibody NONREACTIVE Hep B Core Total Ab Nonreactive Hepatitis C Ab (EIA) Nonreactive HIV 1&2 Ab/P24 Ag 4thGn 01/12/22 01/12/22 01/13/22 23:35 23:36 02:17 MCV MCH MCHC RDW Plt Count MPV Immature Gran % (Auto) Neut % (Auto) Lymph % (Auto) [place] % (Auto) Eos % (Auto) Baso % (Auto) Lymph # (Auto) [place] # (Auto) Eos # (Auto) Baso # (Auto) Abs Immat Gran (auto) Absolute Neuts (auto) Absolute Nucleated RBC Nucleated RBC % (auto) PT INR Anion Gap Estim Creat Clear Calc Estimated GFR Random Glucose Calcium Total Bilirubin Direct Bilirubin AST ALT Alkaline Phosphatase Am[place] 24 Troponin I High Sens Total Protein Albumin Lipase Urine Color Urine Appearance Urine pH Ur Specific [place] Urine Protein Urine Glucose (UA) Urine Ketones Urine Blood Urine Nitrite Ur Leukocyte Esterase Urine RBC Urine WBC Ur Squamous Epith Cells Calcium Oxalate Crystal Amorphous Sediment Urine Bacteria Urine Mucus Salicylates Acetaminophen COVID-19 ([place]) Negative COVID-19 Clin Com See Note Hepatitis A IgM Ab Hep Bs Antigen Hep Bs Antibody Hep B Core Total Ab Hepatitis C Ab (EIA) HIV 1&2 Ab/P24 Ag 4thGn Nonreactive 01/13/22 01/13/22 01/13/22 06:38 06:38 13:22 MCV 92.2 MCH 30.5 MCHC 33.1 RDW 13.2 Plt Count 202 MPV 9.1 L Immature Gran % (Auto) 0.2 Neut % (Auto) 60.1 Lymph % (Auto) 20.7 [place] % (Auto) 12.7 H Eos % (Auto) 5.7 H Baso % (Auto) 0.6 Lymph # (Auto) 1.0 L [place] # (Auto) 0.6 Eos # (Auto) 0.3 Baso # (Auto) 0.0 Abs Immat Gran (auto) 0.01 Absolute Neuts (auto) 2.9 Absolute Nucleated RBC 0.000 Nucleated RBC % (auto) 0.0 PT 12.1 INR 1.1 Anion Gap 14 Estim Creat Clear Calc 102.3 Estimated GFR > 60 Random Glucose 76 Calcium 9.0 D Total Bilirubin 7.2 H Direct Bilirubin AST 189 H ALT 474 H Alkaline Phosphatase 412 H Ammonia Troponin I High Sens Total Protein 6.4 L Albumin 4.0 Lipase Urine Color Urine Appearance Urine pH Ur Specific [place] Urine Protein Urine Glucose (UA) Urine Ketones Urine Blood Urine Nitrite Ur Leukocyte Esterase Urine RBC Urine WBC Ur Squamous Epith Cells Calcium Oxalate Crystal Amorphous Sediment Urine Bacteria Urine Mucus Salicylates Acetaminophen COVID-19 ([place]) COVID-19 Clin Com Hepatitis A IgM Ab Hep Bs Antigen Hep Bs Antibody Hep B Core Total Ab Hepatitis C Ab (EIA) HIV 1&2 Ab/P24 Ag 4thGn Assessment and Plan (1) Transaminitis: Status: Acute Plan 66-year-old male with past medical history of carcinoid tumor status post right upper lobe lobectomy about a month ago presents to the hospital with yellowing of urine and overall not feeling well and having abnormal labs found at urgent care # transaminitis, hyperbilirubinemia ultrasound reports hepatocellular disease as well as cirrhosis ALT:AST >3:1 suggestive of possible cirrhosis denies any excessive alcohol intake dc IV fluids negative hepatitis panel autoimmune panel pending gastroenterology consulted follow LFT # Carcinoid tumer Post resection No a candidate for adjuvant chemotherapy # Thyroid nodule, right concerning for possible cancer TSH. T4 were recently within normal pending US thyroid # Hx of cronh's disease not on active medications DVT prophylaxis: [place] Vape Quality Stroke Does the patient have a stroke diagnosis?: No VTE Prior VTE?: No VTE Risk Level:: Medical - low VTE Device Contraindication: N/A - Device Ordered VTE Drug Contraindication: Treatment Not Indicated
--- NOTE | 2022-01-13 16:12 | PC.NURSE ---
Report given to MARY KATE Charles in overflow
--- NOTE | 2022-01-13 16:28 | PM.EVENT ---
Event Note Date of Service: 01/13/22 Event Note: GI Consult-Full note dictated-Hx via patient and his girlfriend, and from EMR Imp: Acute hepatitis with associated jaundice of unclear etiology. He has no risk factors for liver disease and had normal LFT s earlier this year. He denies EtOH, significant NSAID/Acetaminophen use, ill contacts, travel, nor family history of liver disease. His exam and imaging do not show evidence of chronic liver disease. However, the U/S raises a suspicion of liver nodularity but the CT of the liver is described as normal. There is no splenomegaly nor ascites. There is no sign of biliary obstruction. His only new medications are Tamsulosin and omeprazole over the past several weeks, but there is really no support in the literature of these medications causing drug-induced hepatitis/cholestasis. Aside from the elevated LFT's and jaundice, his liver function is good re: a normal PT/INR, no encephalopathy, no ascites, and no GI bleeding. Hepatitis serologies are all negative. Autoimmune studies are pending. He appears well from a clinical standpoint. He is tolerating a diet. 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 There are associations of primary sclerosing cholangitis in patients with underlying IBD, but I tend to doubt this is the case. Rec: Observe, F/U labs in AM, diet as tolerated, hold Tamsulosin and Omeprazole. If the AM labs are stable or improved, and he continues to feel well from a clinical standpoint and is tolerating a diet, then I think he can be discharged and we can follow things as an outpatient. He may eventually need a liver biopy and MRCP for further evaluation depending on his clinical course. D/W patient and girlfriend in detail and they are comfortable with this plan. Thanks
[2022-01-13 16:37] VITALS: BP 129/78; PULSE 72; RESP 16; TEMP 36.7; O2SAT 98
--- NOTE | 2022-01-13 16:38 | PC.NURSE ---
PATIENT STATED HE FEEL MORE COMFORTABLE IN HIS OWN CLOTHING ,DOES NOT WANT TO CHANGE .
[2022-01-13 21:18] VITALS: BP 131/86; PULSE 72; RESP 16; TEMP 36.6; O2SAT 96
[2022-01-14] VITALS: BP 129/86; PULSE 85; RESP 21; TEMP 36.7; O2SAT 97
[2022-01-14] MEDS: 0.9 % Sodium Chloride Flush 3 ML SYRINGE IVFLUSH ×2 (00:06→07:46)
--- NOTE | 2022-01-14 02:47 | CONS_ITS ---
DATE OF SERVICE: 01/13/2022 REASON FOR CONSULTATION: Elevated LFTs and jaundice. HISTORY OF PRESENT ILLNESS: This has been obtained from the patient, his girlfriend, and the medical record. The patient is a 66-year-old male presenting with jaundice and elevated LFTs. I have seen the patient in the past in relation to inactive ulcerative proctitis with his last colonoscopy in 2018 showing no sign of any active inflammatory bowel disease. All biopsies from the colon were negative for dysplasia at that time. He has had normal LFTs in the past. On December 13, he underwent a right upper lobectomy at [facility] with Dr. Moore for a carcinoid tumor. He had normal LFTs prior to that and a PET-CT scan in October was negative for any signs of liver disease. The patient describes that he tolerated the surgery very well. He was started on tamsulosin when he was at the hospital about a month ago for some urinary retention. He was also started on omeprazole a week or so ago for some GI upset. Other than that, he has not been on any other new medications, significant amounts of acetaminophen, nor NSAIDs. Over the past week or so, he has had some progressive malaise, some headaches, anorexia, and pruritus. He has had nausea, but denies any vomiting. He has not noticed any increasing abdominal girth, nor edema. He has noticed some darkened urine. Evaluation in the ER did reveal jaundice and elevated LFTs. He has subsequently been admitted. He presently denies any abdominal pain other than some right upper quadrant intermittent discomfort. He denies any particular change in bowel habits, significant constipation, diarrhea, hematochezia, nor melena. He denies any known family history of liver disease, ill contacts, nor travel. He denies any history of significant alcohol use in the past, nor presently. MEDICATIONS: Again, aside from the recent omeprazole and tamsulosin, he has not been on any new medications. His medications here in the hospital include omeprazole, Zofran, and antacids. PAST MEDICAL HISTORY: Recent right upper lobectomy of the right lung in relation to a carcinoid tumor. Umbilical hernia surgery. Inguinal hernia surgery. Spermatocele. Inactive distant history of ulcerative proctitis with his most recent colonoscopy in 2018 being negative for any active colitis, nor dysplasia. 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 SOCIAL HISTORY: He denies tobacco, nor any significant alcohol. FAMILY HISTORY: Noncontributory. REVIEW OF SYSTEMS: CONSTITUTIONAL: He has had malaise and anorexia as above. SKIN: He has had some recent pruritus. CARDIAC: No chest pain. PULMONARY: No cough. No hemoptysis. GI: As above. URINARY: No dysuria. No hematuria. NEUROLOGIC: No seizures, but he has had a headache. PHYSICAL EXAMINATION: GENERAL: The patient is a pleasant, alert, comfortable-appearing male. HEENT: Minimal scleral icterus. No spider angiomata. NECK: Supple without lymphadenopathy. CHEST: Clear. CARDIAC: Normal S1 and S2. ABDOMEN: Soft, nondistended, nontender without palpable mass. EXTREMITIES: Without edema. No palmar erythema. NEUROLOGIC: He is alert and oriented without asterixis. LABORATORIES: White blood cell count 4.9, hemoglobin 14.8, platelets 202,000, his eosinophil count is slightly elevated at 5.7%. PT with INR is normal at 12.1 and 1.1. He had a normal liver profile in September and reports that he did have preoperative blood work in November that was also unremarkable as far as he knows. LFTs on January 11 showed a total bilirubin of 4.5, total bilirubin 7.2 on January 12 and 7.2 today; his alkaline phosphatase has gone from 333 on January 11 to 412 today, his ALT has gone from 621 on January 11 to 474 today, his AST has gone from 163 on January 11 to 189 today, albumin 4.0. His salicylate and acetaminophen levels were both nondetectable. His autoimmune studies including NANCY and smooth muscle antibody are pending. His hepatitis A IgM is negative, hepatitis B antigen is negative, hepatitis B surface antibody is negative, and hepatitis C antibody is negative. HIV is negative. COVID is negative. His abdominal ultrasound has raised a suspicion of some liver nodularity consistent with possible hepatocellular disease and cirrhosis. The gallbladder appeared to have some questionable wall thickening, but no other signs of cholecystitis, nor gallstones. There was no biliary obstruction noted. The common duct was only [address] scan of the abdomen and pelvis from yesterday describes a normal-appearing liver without biliary obstruction, nor any signs of cirrhosis. The spleen and pancreas were unremarkable. There was no description of ascites. IMPRESSION: Given the patient's clinical history, this appears to be consistent with an acute hepatitis with associated jaundice. The etiology for this is not clear at this time. He has been on 2 relatively new medications in the recent past several weeks, but both of these medications do not seem likely to cause liver disease, although it has been reported with omeprazole. He has no other risk factors for liver disease and specifically, denies any alcohol. I doubt this is related to his recent surgery. While the ultrasound raises a suspicion of cirrhosis, he does not show any stigmata of that on his exam and his CT scan was unremarkable in that regard. At this time, he does not show any signs of liver failure, given the normal PT with INR; no signs of encephalopathy, no ascites, and no gastrointestinal bleeding. He appears well from a clinical standpoint and is tolerating a diet. 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 At this point, since he appears well, I would continue to simply observe him and follow up laboratories in the morning including a PT with INR and liver profile. I would continue diet as tolerated. I would stop his PPI and avoid tamsulosin, given the temporal relationship to his liver disease. If his morning labs are stable and he continues to feel well from a clinical standpoint including being able to tolerate oral intake, then I think he can be discharged. We can follow things as an outpatient. He may need eventual liver biopsy and/or magnetic resonance cholangiopancreatography for further evaluation as well. His jaundice might get a little bit worse as the hepatitis improves, but at this point, I would simply continue to observe things. Obviously, if he develops signs of liver failure, he would need to be transferred to a tertiary center that has liver transplant capabilities; however, at this point, that is certainly not needed. This has all been discussed with him in detail. He is comfortable with the plan. Thank you for the consultation. MD NORMA Fuentes/CLARISSA / [id number] MTDArlyn
[2022-01-14 04:00] VITALS: BP 115/76; PULSE 72; RESP 19; TEMP 36.8; O2SAT 97
[2022-01-14 06:54] LABS: Prothrombin Time 11.2 SEC (10.0-13.1)
[2022-01-14 06:55] LABS: Anion Gap 15 (12-20); Blood Urea Nitrogen 12 mg/dL (9-16); Calcium 9.1 mg/dL (8.4-10.2); Carbon Dioxide 23 mmol/L (22-29); Chloride 104 mmol/L (96-108); Creatinine Clr Calc Pharmacy 110.2; Estimated Glomerular Filt Rate > 60; Glucose Random 104 mg/dL (60-115); Potassium 4.3 mmol/L (3.3-5.1); Sodium 138 mmol/L (135-145)
[2022-01-14 07:03] LABS: Alanine Aminotransferase 458 U/L (0-40); Albumin Level 3.9 g/dL (3.5-5.0); Alkaline Phosphatase 479 U/L (39-117); Aspartate Amino Transferase 180 U/L (5-37); Bilirubin Direct 5.3 mg/dL (0.0-0.5); Bilirubin Total 7.4 mg/dL (0.0-1.0); Lactate Dehydrogenase 198 U/L (118-273); Total Protein 6.4 g/dL (6.5-8.0)
--- NOTE | 2022-01-14 08:02 | PC.NURSE ---
Addendum entered by Shy Pastrana RN 01/14/22 09:41: skin and eyes noted to be jaundice. Original Note: 0750-pt assessed. GCS 15, PEARLA, ERNANDEZ well, denies numbness and tingling x4. Pulses +2 x4. Pt does complain of RUQ abdominal tenderness upon palpation. Lung sounds clear bilaterally A&P throughout. bowel sounds present. Pt denies pain at this time.
[2022-01-14 08:29] VITALS: BP 120/83; PULSE 77; RESP 16; O2SAT 98
--- NOTE | 2022-01-14 10:01 | MHC.CM.PN ---
PER HOSPITALIST ANTIC PT WILL BE CLEARED FOR D/C HOME TODAY W/NO SERVICES IF FEELING WELL AND TOLERATING DIET, PT'S GF WILL TRANSPORT
[2022-01-14] MEDS: Omeprazole 20 MG CAPSULE.DR PO (12:54)
--- NOTE | 2022-01-14 13:03 | PC.NURSE ---
1230-no change in patient status. Pt continues to state he has tenderness in RUQ, but not painful. Ice packs applied. Pt NPO since breakfast for MRI ordered.
--- NOTE | 2022-01-14 13:19 | HO.PM.IMPN ---
Subjective Subjective Date of Service: 01/14/22 Interval History: the patient was seen and evaluated this morning complaining mainly of heartburn still reporting dark urine Tolerating diet well liver enzymes stable around the same No reported other overnight events. Systemic review: No fever, chills or weakness No chest pain, palpitation No shortness of breath or coughing no abdominal pain, reporting feeling heartburn No urinary symptoms No any rash or wounds Physical Exam Vital Signs: Vital Signs: Last Vital Signs Temp 98.3 F 01/14/22 04:00 Pulse 77 01/14/22 08:29 Resp 16 01/14/22 08:29 BP 120/83 01/14/22 08:29 Pulse Ox 98 01/14/22 08:29 O2 Del Method 01/14/22 08:29 BMI result Body Mass Index 30.5 Const: Other: Constitutional : Alert, oriented, not in distress eyEs: mildly jaundiced sclera Neck : Normal inspection, Supple Cardiovascular : RRR, no JVP, no lower extremity edema Respiratory : fair bilateral air entry, no crackles, wheezes or rhonchi Gastrointestinal: soft, lax, Normal bowel sounds, Non tender Skin : Warm, Dry Neurological : Alert & oriented x3, No focal deficit , CN 2-12 within normal Objective Data Active Medications Artificial Tears (Artificial Tears 15 Ml Drops) 2 drop EYE-BOTH Q4H PRN PRN Reason: Dry Eyes Omeprazole (Omeprazole 20 Mg Capsule.) 20 mg PO BID@0630,1630 [facility] Last Admin: 01/14/22 12:54 Dose: 20 mg Documented By: LOIS Ondansetron HCl (Ondansetron Hcl 4 Mg/2 Ml Vial) 4 mg IVPUSH Q8H PRN PRN Reason: Nausea and Vomiting Sodium Chloride (0.9 % Sodium Chloride Flush 3 Ml Syringe) 3 ml IVFLUSH QSHIFT [facility] Last Admin: 01/14/22 07:46 Dose: 3 ml Documented By: LOIS Labs CBC & Chem 7: 01/13/22 06:38 01/14/22 06:16 Labs: Laboratory Results - last 24 hr 01/13/22 01/14/22 01/14/22 13:22 06:16 06:16 PT 12.1 INR 1.1 Anion Gap 15 Estim Creat Clear Calc 110.2 Estimated GFR > 60 Random Glucose 104 D Calcium 9.1 Total Bilirubin 7.4 H Direct Bilirubin 5.3 H AST 180 H ALT 458 H Alkaline Phosphatase 479 H Lactate Dehydrogenase 198 Total Protein 6.4 L Albumin 3.9 01/14/22 06:16 PT 11.2 INR 1.0 Anion Gap Estim Creat Clear Calc Estimated GFR Random Glucose Calcium Total Bilirubin Direct Bilirubin AST ALT Alkaline Phosphatase Lactate Dehydrogenase Total Protein Albumin Assessment and Plan (1) Transaminitis: Status: Acute Plan 66-year-old male with past medical history of carcinoid tumor status post right upper lobe lobectomy about a month ago presents to the hospital with yellowing of urine and overall not feeling well and having abnormal labs found at urgent care # transaminitis, hyperbilirubinemia ultrasound reports hepatocellular disease as well as cirrhosis, CT scan negative for any findings of cirrhosis, patient clinically not cirrhotic ALT:AST >3:1 suggestive of possible cirrhosis denies any excessive alcohol intake dc IV fluids negative hepatitis panel autoimmune panel pending gastroenterology Input appreciated, consider discharging home if stable and tolerating diet to do MRCP and decide about the next step afterward follow LFT # heartburn could be secondary to gastritis Start omeprazole # Carcinoid tumer Post resection No a candidate for adjuvant chemotherapy # Thyroid nodule, right concerning for possible cancer TSH. T4 were recently within normal pending US thyroid As outpatient # Hx of cronh's disease not on active medications DVT prophylaxis: Lovenox Quality Stroke Does the patient have a stroke diagnosis?: No VTE Prior VTE?: No VTE Risk Level:: Medical - low VTE Device Contraindication: N/A - Device Ordered VTE Drug Contraindication: Treatment Not Indicated
--- NOTE | 2022-01-14 15:06 | PM.DS ---
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 Patient reports that after leaving the hospital post his lobectomy he was doing well, but he has started a new medication which was tamsulosin for his BPH, ever starting the tamsulosin patient started feeling labs E, tired, sluggish, he noticed his urine was getting darker and no matter how much water he drank a remain dark, after using it for about 28 days he decided to stop the medication on Sunday.? He reports that he felt significantly better after stopping the medication but his urine continue to be yellow.? And he continued to just not feel back to his baseline.? He went to Urgent Care, they did labs, found him to have abnormal liver function test and sent him to the hospital.? Patient reports that he has been using Tylenol 625 x2 q. 12 hours but has not been taking more of that.? He denies having any fever or chills, no abdominal pain, no nausea vomiting, no diarrhea constipation, denies any urinary symptom and no lower extremity edema.? He reports that he has not noticed any yellowing of his skin.? Besides the generalized fatigue and feeling lousy has not had any acute illness On arrival to the ED patient hemodynamically stable with no significant abnormal vitals Labs are significant for WBC count of 5.9, hemoglobin of 15.7, BUN of 17, creatinine of 0.94, total bili of 7.2, direct bili of 5.1, AST of 167, ALT of 512, alk-phos of 4 3, UA negative, salicylate level less than 5, estimate of level negative, COVID-[address] showed no acute intra-abdominal process, the liver is normal in size, shape and attenuation, no focal hepatic lesion or biliary ductal dilatation is present.? The gallbladder is unremarkable. Abdominal ultrasound on the other hand showed heterogeneous liver with nodular contour suggesting hepatocellular disease and cirrhosis Patient will be admitted for further evaluation Hospital course The patient was admitted for evaluation of elevated liver enzymes and heartburn. ultrasound reports hepatocellular disease as well as cirrhosis, CT scan negative for any findings of cirrhosis, patient clinically not cirrhotic . MRCP was done as the patient was evaluated by tire finisher and did not show any acute obstruction, masses. Autoimmune panel still pending while hepatitis profile came negative. Dr. Banda from GI recommended for the patient to go back home as he is tolerating diet well and to continue with omeprazole daily with a plan to follow-up as outpatient after repeating his liver profile on Sunday. The patient should do thyroid ultrasound as outpatient as well and follow with Dr. Maurer. Discontinue tamsulosin Advance your diet as tolerated Continue omeprazole 20 mg daily To repeat liver enzymes on Sunday To follow-up with Dr. Banda as outpatient. Time Spent with Patient Time attestation: Total time spent providing and/or coordinating discharge services: Discharge coordination time: Greater than 30 minutes Quality: Safe Use of Opioids Does Pt have an Active Cancer Diagnosis on the Problem List?: No Quality: Stroke Does the patient have a stroke diagnosis?: No Physical Exam Vital Signs: Vital Signs: Last Vital Signs Temp 98.3 F 01/14/22 04:00 Pulse 77 01/14/22 08:29 Resp 16 01/14/22 08:29 BP 120/83 01/14/22 08:29 Pulse Ox 98 01/14/22 08:29 O2 Del Method 01/14/22 08:29 BMI result Body Mass Index 30.5 Const: Other: Constitutional : Alert, oriented, not in distress eyEs: mildly jaundiced sclera Neck : Normal inspection, Supple Cardiovascular : RRR, no JVP, no lower extremity edema Respiratory : fair bilateral air entry, no crackles, wheezes or rhonchi Gastrointestinal: soft, lax, Normal bowel sounds, Non tender Skin : Warm, Dry Neurological : Alert & oriented x3, No focal deficit , CN 2-12 within normal DS: Data Data Completed and Pending Labs on day of discharge: Laboratory Results - last 24 hr 01/14/22 01/14/22 01/14/22 06:16 06:16 06:16 PT 11.2 INR 1.0 Sodium 138 Potassium 4.3 Chloride 104 Carbon Dioxide 23 Anion Gap 15 BUN 12 Creatinine 0.77 Estim Creat Clear Calc 110.2 Estimated GFR > 60 Random Glucose 104 D Calcium 9.1 Total Bilirubin 7.4 H Direct Bilirubin 5.3 H AST 180 H ALT 458 H Alkaline Phosphatase 479 H Lactate Dehydrogenase 198 Total Protein 6.4 L Albumin 3.9 Discharge Plan Discharge Patient Disposition: Home, Self-Care Discharge Diagnosis: Elevated liver enzymes Referrals: Po,Viri Alonso MD [Primary Care Provider] - 1 Week Discharge Medications: Continued docusate sodium 100 mg capsule 1 cap PO BID PRN (Reason: Constipation) Esteban 128 2 % Drops 1 drp OPHTHALMIC (EYE) QID PRN (Reason: Corneal Thickening) omeprazole 20 mg Tablet,Delayed Release (Dr/Ec) 20 mg PO DAILY@0630 Qty: 30 0RF cholecalciferol (vitamin D3) 25 mcg (1,000 unit) capsule 25 mcg PO DAILY cyanocobalamin (vitamin B-12) 1,000 mcg capsule 1,000 mcg PO DAILY Discontinued tamsulosin 0.4 mg capsule 1 cap PO BEDTIME Discharge Orders: Discharge Order (Routine); Ordered 01/14/22 Ordered By: Zully Pulido Activity on Discharge: As tolerated Stand Alone Forms: Patient Portal Discharge page Other Ambulatory Orders: Liver Panel (Routine) Timeframe: [id number] Facility: [facility] - Location: Laboratory Ordered By: Zully Pulido Care Plan Goals: Read below Health Concerns: Read below Plan of Treatment: Read below Assessment: you were admitted to the hospital for evaluation of epigastric pain. Found to have elevated liver enzymes. Evaluated by tire finisher as your hepatitis profile came back negative, images including CT and MRI were negative for any obstruction, masses or evidence of cirrhosis. Blood work still pending for autoimmune causes. You were able to tolerate diet as your omeprazole was restarted. Discontinue tamsulosin Advance your diet as tolerated Continue omeprazole 20 mg daily To repeat liver enzymes on Sunday To follow-up with Dr. Banda as outpatient.
[2022-01-14 15:46] VITALS: BP 114/81; PULSE 74; RESP 16; TEMP 37; O2SAT 98
--- NOTE | 2022-01-14 16:45 | PC.NURSE ---
1640-discharge information explained to patient, questions answered. IV removed.
[2022-01-17 21:56] LABS: Liver Kidney Microsomal Ab <=20.0 U (<=20.0); Smooth Muscle Antibody <20 U (<20)
[2022-01-17 22:46] LABS: Anti Nuclear Antibody Pattern Nuclear, Homogeneous; Anti Nuclear Antibody Screen POSITIVE (NEGATIVE); Anti Nuclear Antibody Titer 1:40 titer
[2022-01-17 23:26] LABS: IgA 260 mg/dL (70-320); IgG 964 mg/dL (600-1540); IgM 45 mg/dL (50-300)
== END 2022-01-14 17:15 | disposition home or self-care (01) ==
LOC: HO.ED 22:52 → HO.EDOVER 23:02 → HO.S3 01-14 16:12 → HO.EDOVER 01-14 16:18
PROVIDERS: Internal Medicine; Admitting Provider Internal Medicine; Emergency Provider Emergency Medicine; PCP Internal Medicine; Visit Provider Student in an Organized Health Care Education/Training Program
DX: R74.01 Elevation of levels of liver transaminase levels (principal); E80.6 Other disorders of bilirubin metabolism; R79.89 Other specified abnormal findings of blood chemistry; N13.30 Unspecified hydronephrosis; R17 Unspecified jaundice; R11.0 Nausea; R53.81 Other malaise; R10.13 Epigastric pain; K21.9 Gastro-esophageal reflux disease without esophagitis; K50.90 Crohn's disease, unspecified, without complications; L81.7 Pigmented purpuric dermatosis; E66.9 Obesity, unspecified; Z68.30 Body mass index [BMI] 30.0-30.9, adult; Z85.110 Personal history of malignant carcinoid tumor of bronchus and lung; Z85.828 Personal history of other malignant neoplasm of skin; Z79.899 Other long term (current) drug therapy
CPT/HCPCS: 36415; 74176; 74181; 76705; 80048; 80053; 80076; 80143; 80179; 81001; 82140; 82784; 83615; 83690; 84484; 85025; 85610; 86015; 86038; 86039; 86376; 86704; 86706; 86709; 86803; 87340; 87389; 87635; 93005; 96374; 96375; 99218; 99285

== ENCOUNTER 2022-01-17 13:54 | Outpatient (REF) | payer MEDICARE, SELFPAY ==
[2022-01-17 17:24] LABS: Alanine Aminotransferase 472 U/L (0-40); Albumin Level 4.2 g/dL (3.5-5.0); Alkaline Phosphatase 447 U/L (39-117); Aspartate Amino Transferase 204 U/L (5-37); Bilirubin Total 6.3 mg/dL (0.0-1.0); Total Protein 6.7 g/dL (6.5-8.0)
== END 2022-01-17 13:55 | disposition home or self-care (01) ==
LOC: HO.HMGCLDS 13:54
PROVIDERS: PCP Internal Medicine; Visit Provider Student in an Organized Health Care Education/Training Program
DX: R79.89 Other specified abnormal findings of blood chemistry (principal)
CPT/HCPCS: 36415; 80076

== ENCOUNTER 2022-01-19 10:55 | Outpatient (REF) | payer MEDICARE, SELFPAY ==
[2022-01-19 11:20] LABS: MANUAL DIFF FLAG NO
[2022-01-19 12:04] LABS: Basophils Absolute Auto 0.1 X10*3/uL (0.0-0.2); Basophils Percent Auto 1.1 % (0-2); Eosinophils Absolute Auto 0.2 X10*3/uL (0.0-0.4); Eosinophils Percent Auto 4.5 % (0-4); Hematocrit 42.2 % (42.0-52.0); Hemoglobin 14.1 g/dl (14.0-18.0); Imm Gran Abs Auto 0.01 X10*3/uL (0.00-0.03); Imm Gran Pct Auto 0.2 % (0.0-0.4); Mean Corpuscular HGB Conc 33.4 g/dl (31.0-36.0); Mean Corpuscular Hemoglobin 31.2 pg (27.0-33.0); Mean Corpuscular Volume 93.4 fL (80.0-98.0); Mean Platelet Volume 9.9 fL (9.4-12.4); Monocytes Absolute Auto 0.4 X10*3/uL (0.1-1.2); Monocytes Percent Auto 9.9 % (2-11); Neutrophils Absolute Auto 2.8 x10*3/uL (2.0-8.3); Neutrophils Percent Auto 62.3 % (45-73); Platelet Count 274 X10*3/uL (160-400); Red Blood Count 4.52 X10*6/uL (4.60-5.80); Red Cell Distribution Width 13.1 % (11.0-16.0); White Blood Count 4.5 X10*3/uL (4.8-10.8)
[2022-01-19 12:06] LABS: Prothrombin Time 11.2 SEC (10.0-13.1)
[2022-01-19 12:30] LABS: Alanine Aminotransferase 465 U/L (0-40); Albumin Level 4.2 g/dL (3.5-5.0); Alkaline Phosphatase 401 U/L (39-117); Anion Gap 12 (12-20); Aspartate Amino Transferase 190 U/L (5-37); Bilirubin Direct 2.8 mg/dL (0.0-0.5); Bilirubin Total 4.6 mg/dL (0.0-1.0); Blood Urea Nitrogen 15 mg/dL (9-16); Calcium 9.4 mg/dL (8.4-10.2); Carbon Dioxide 28 mmol/L (22-29); Chloride 104 mmol/L (96-108); Estimated Glomerular Filt Rate > 60; Glucose Random 98 mg/dL (60-115); Potassium 4.1 mmol/L (3.3-5.1); Sodium 140 mmol/L (135-145); Total Protein 6.7 g/dL (6.5-8.0)
== END 2022-01-19 10:56 | disposition home or self-care (01) ==
LOC: HO.LAB 10:55
PROVIDERS: Nurse Practitioner Family; PCP Internal Medicine; Visit Provider Internal Medicine
DX: E80.6 Other disorders of bilirubin metabolism (principal); R74.01 Elevation of levels of liver transaminase levels; R79.89 Other specified abnormal findings of blood chemistry; R94.5 Abnormal results of liver function studies; R17 Unspecified jaundice
CPT/HCPCS: 36415; 80048; 80076; 85025; 85610

== ENCOUNTER 2022-01-23 11:30 | Outpatient (REF) | payer MEDICARE, SELFPAY ==
--- NOTE | ~2022-01-23 | US_ITS ---
EXAMINATION: US THYROID CLINICAL INFORMATION: PET avid thyroid nodule. COMPARISON: PET/CT scan 10/25/2021. TECHNIQUE: Linear transducer santillan-scale and color Doppler examination with attention to the region of the thyroid. FINDINGS: SIZE: Measurements of the thyroid lobes and nodules are given in sagittal, anteroposterior and transverse dimensions respectively. Right Thyroid Lobe: 3.6 x 2.0 x 1.6 cm, volume 6.0 mL. Parenchyma: The gland echotexture is homogeneous. Thyroid vascularity is normal. Left Thyroid Lobe: 4.1 x 1.6 x 1.0 cm, volume 3.4 mL. Parenchyma: The gland echotexture is homogeneous. Thyroid vascularity is normal. Isthmus: 0.5 cm in maximum AP dimension. Estimated total number of nodules greater than or equal to 1 cm: 0. [employer] nodules are described as follows: 1. Location: Left inferior medial. Size: 0.5 x 0.4 x 0.5 cm, volume 0.05 mL. Nodule characteristics: Composition: Cystic(0). ACR TI-RADS total points: 0 ACR TI-RADS category: 1 2. Location: Right inferior isthmus. Size: 0.9 x 0.5 x 0.8 cm, volume 0.21 mL. Nodule characteristics: Composition: Solid (2). Echogenicity: Hypoechoic (2). Shape: Not taller than wide (0). Margins: Smooth (0). Echogenic Foci: None (0). ACR TI-RADS total points: 4 ACR TI-RADS category: 4 NODES: No lymphadenopathy is seen in the tissue surrounding the thyroid gland. US/US thyroid IMPRESSION: Two small nodules in right and left thyroid lobe nonsuspicious. Minimally enlarged right thyroid lobe but otherwise unremarkable. Recommend continued ultrasound thyroid followup. ACR TI-RADS RECOMMENDATION REFERENCE: Ultrasound-guided fine-needle aspiration, followup ultrasound, no further follow up. * TR1 (0 point) and TR 2 (2 points): No FNA or follow up * TR3 (3 points): FNA if more than or equal to 2.5 cm in maximum dimension, followup ultrasound in 1, 3 and 5 years if 1.5 to 2.4 cm in maximum dimension. * TR4 (4-6 points): FNA if more than or equal to 1.5 cm in maximum dimension, followup ultrasound in 1, 2, 3 and 5 years if 1 to 1.4 cm in maximum dimension. * TR5 (more than or equal to 7 points): FNA if more than or equal to 1 cm in maximum dimension, followup ultrasound every year for 5 years if 0.5 to 0.9 cm in maximum dimension. * TR3, TR4 or TR5 nodules that are below the size threshold for follow up receive no follow up.
[2022-01-23 14:11] LABS: Appearance Urine CLEAR; Color Urine YELLOW; Glucose Urine UA NEG (NEG); Leukocyte Esterase Urine NEG (NEG); Nitrite Urine NEG (NEG); Specific Gravity - Urine <= 1.005 (1.005-1.025); Urine Blood NEG (NEG); Urine Ketones NEG (NEG); Urine Protein NEG (NEG-TRACE)
[2022-01-23 14:15] LABS: Alanine Aminotransferase 272 U/L (0-40); Albumin Level 4.1 g/dL (3.5-5.0); Alkaline Phosphatase 285 U/L (39-117); Aspartate Amino Transferase 89 U/L (5-37); Bilirubin Direct 1.7 mg/dL (0.0-0.5); Bilirubin Total 2.7 mg/dL (0.0-1.0); Total Protein 6.4 g/dL (6.5-8.0)
== END 2022-01-23 11:31 | disposition home or self-care (01) ==
LOC: HO.HMGCX 11:30
PROVIDERS: Physician Assistant; Absent Provider Nurse Practitioner Family; PCP Internal Medicine; Visit Provider Internal Medicine
DX: E04.1 Nontoxic single thyroid nodule (principal); E80.6 Other disorders of bilirubin metabolism; R74.01 Elevation of levels of liver transaminase levels; R79.89 Other specified abnormal findings of blood chemistry; R82.998 Other abnormal findings in urine
CPT/HCPCS: 36415; 76536; 80076; 81003

== ENCOUNTER 2022-01-31 10:55 | Outpatient (REF) | payer MEDICARE, SELFPAY ==
[2022-01-31 14:15] LABS: Alanine Aminotransferase 92 U/L (0-40); Albumin Level 4.3 g/dL (3.5-5.0); Alkaline Phosphatase 190 U/L (39-117); Aspartate Amino Transferase 39 U/L (5-37); Bilirubin Total 1.7 mg/dL (0.0-1.0); Total Protein 6.8 g/dL (6.5-8.0)
== END 2022-01-31 10:56 | disposition home or self-care (01) ==
LOC: HO.HMGCLDS 10:55
PROVIDERS: Absent Provider Internal Medicine; PCP Internal Medicine; Visit Provider Nurse Practitioner Family
DX: R79.89 Other specified abnormal findings of blood chemistry (principal)
CPT/HCPCS: 36415; 80076

== ENCOUNTER 2022-02-14 15:01 | Outpatient (REF) | payer MEDICARE, SELFPAY ==
[2022-02-14 17:13] LABS: Alanine Aminotransferase 39 U/L (0-40); Albumin Level 4.4 g/dL (3.5-5.0); Alkaline Phosphatase 109 U/L (39-117); Aspartate Amino Transferase 27 U/L (5-37); Bilirubin Direct 0.5 mg/dL (0.0-0.5); Bilirubin Total 0.9 mg/dL (0.0-1.0); Total Protein 6.8 g/dL (6.5-8.0)
== END 2022-02-14 15:02 | disposition home or self-care (01) ==
LOC: HO.HMGCLDS 15:01
PROVIDERS: PCP Internal Medicine; Visit Provider Nurse Practitioner Family
DX: R79.89 Other specified abnormal findings of blood chemistry (principal)
CPT/HCPCS: 36415; 80076

== ENCOUNTER 2022-03-14 13:36 | Outpatient (REF) | payer MEDICARE, SELFPAY ==
[2022-03-14 16:45] LABS: Alanine Aminotransferase 32 U/L (0-40); Albumin Level 4.4 g/dL (3.5-5.0); Alkaline Phosphatase 73 U/L (39-117); Aspartate Amino Transferase 24 U/L (5-37); Bilirubin Direct 0.4 mg/dL (0.0-0.5); Bilirubin Total 0.8 mg/dL (0.0-1.0); Total Protein 6.7 g/dL (6.5-8.0)
== END 2022-03-14 13:37 | disposition home or self-care (01) ==
LOC: HO.HMGCLDS 13:36
PROVIDERS: PCP Internal Medicine; Visit Provider Internal Medicine
DX: R94.5 Abnormal results of liver function studies (principal); R17 Unspecified jaundice
CPT/HCPCS: 36415; 80076

== ENCOUNTER 2022-05-05 11:51 | Outpatient (REF) | payer MEDICARE, SELFPAY ==
--- NOTE | ~2022-05-05 | XR_ITS ---
EXAMINATION: XR wrist LT min 3V, XR wrist RT min 3V CLINICAL INFORMATION: Reason for Exam M25.531 - Pain in left wrist COMPARISON: None. TECHNIQUE: AP, lateral, and oblique views of the right and left wrist FINDINGS: Left wrist: No acute fracture or dislocation. Remote ulnar styloid avulsion fracture. Widening of the scapholunate interval which could be seen in the setting of scapholunate dissociation with question of widening of the capitolunate angle which could be seen in the setting of Volar intercalated segment instability, recommend correlation with clinical symptoms. Moderate degenerative changes of the wrist with loss of radiocarpal and radioulnar joint space. No soft tissue abnormality. Right wrist: No acute fracture or dislocation. Widening of the scapholunate interval which could be seen in the setting of scapholunate dissociation. Advanced degenerative changes of the wrist with complete loss of radiocarpal and to a lesser extent radial ulnar joint space. Obliquity on the lateral view limits evaluation for instability. No soft tissue abnormality. XR/XR wrist LT min 3V IMPRESSION: LEFT WRIST: 1. Widening of the scapholunate interval which could be seen in the setting of scapholunate dissociation with question of widening of the capitolunate angle which could be seen in the setting of volar intercalated segment instability, recommend correlation with clinical symptoms. 2. Moderate degenerative changes of the left wrist with loss of radiocarpal and radioulnar joint space. RIGHT WRIST: 1. Widening of the scapholunate interval which could be seen in the setting of scapholunate dissociation. Obliquity on the lateral view limits evaluation for instability. 2. Advanced degenerative changes of the right wrist with complete loss of radiocarpal and to a lesser extent radial ulnar joint space.
--- NOTE | ~2022-05-05 | XR_ITS ---
EXAMINATION: XR wrist LT min 3V, XR wrist RT min 3V CLINICAL INFORMATION: Reason for Exam M25.531 - Pain in left wrist COMPARISON: None. TECHNIQUE: AP, lateral, and oblique views of the right and left wrist FINDINGS: Left wrist: No acute fracture or dislocation. Remote ulnar styloid avulsion fracture. Widening of the scapholunate interval which could be seen in the setting of scapholunate dissociation with question of widening of the capitolunate angle which could be seen in the setting of Volar intercalated segment instability, recommend correlation with clinical symptoms. Moderate degenerative changes of the wrist with loss of radiocarpal and radioulnar joint space. No soft tissue abnormality. Right wrist: No acute fracture or dislocation. Widening of the scapholunate interval which could be seen in the setting of scapholunate dissociation. Advanced degenerative changes of the wrist with complete loss of radiocarpal and to a lesser extent radial ulnar joint space. Obliquity on the lateral view limits evaluation for instability. No soft tissue abnormality. XR/XR wrist RT min 3V IMPRESSION: LEFT WRIST: 1. Widening of the scapholunate interval which could be seen in the setting of scapholunate dissociation with question of widening of the capitolunate angle which could be seen in the setting of volar intercalated segment instability, recommend correlation with clinical symptoms. 2. Moderate degenerative changes of the left wrist with loss of radiocarpal and radioulnar joint space. RIGHT WRIST: 1. Widening of the scapholunate interval which could be seen in the setting of scapholunate dissociation. Obliquity on the lateral view limits evaluation for instability. 2. Advanced degenerative changes of the right wrist with complete loss of radiocarpal and to a lesser extent radial ulnar joint space.
[2022-05-05 14:18] LABS: Blood Urea Nitrogen 15 mg/dL (9-16); Estimated Glomerular Filt Rate > 60
== END 2022-05-05 11:52 | disposition home or self-care (01) ==
LOC: HO.HMGCX 11:51
PROVIDERS: Absent Provider Internal Medicine; PCP Internal Medicine; Visit Provider Internal Medicine
DX: D3A.090 Benign carcinoid tumor of the bronchus and lung (principal)
CPT/HCPCS: 36415; 73110; 82565; 84520

== ENCOUNTER 2022-05-31 07:48 | Outpatient (REF) | payer MEDICARE, SELFPAY ==
--- NOTE | ~2022-05-31 | CT_ITS ---
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 Surveillance. COMPARISON: Previous chest CT September 2021 TECHNIQUE: Multidetector volumetric CT imaging of the chest was obtained after the administration of 50 mL of Omnipaque 350 intravenous contrast without immediate adverse reactions. Axial MIP volume rendering provided. Sagittal and coronal reformatted images were obtained. This CT examination was performed using dose optimization techniques as appropriate, variously including the following: *Automated exposure control *Adjustment of mA and/or kV according to patient size (this includes techniques or standardized protocols for targeted exams where dose is matched to indication/reason for exam; i.e. extremities or head) *Use of iterative reconstruction technique DLP: 139 mGy-cm FINDINGS: LUNGS: There are new postsurgical changes following right upper lobe lobectomy. There are multiple small clustered right lower lobe nodules and areas of groundglass attenuation in the right lower lobe. Largest solid nodule measures 3 mm axial image 52 series 7 in the right upper lobe and in the right lower lobe axial image 91 series 7.. Largest area of increased groundglass attenuation and measures 2 cm axial image 82 series 7. This is a new finding compared to September 2021 exam. There is a 2 mm left upper lobe nodule axial image 73 series 7. New There is a 4 mm peripheral or subpleural left lower lobe nodule adjacent to the fissure axial image 83 series 7. Stable There are 2 small peripheral or subpleural left lower lobe 2 mm nodules axial image 96 series 7. New There is a 2 mm lingular nodule axial image 109 series 7. Stable MEDIASTINUM: Small mediastinal lymph nodes. Postsurgical changes with surgical clips in the right hilum. Normal heart size. No pericardial effusion. Normal caliber thoracic aorta. PLEURA: There is no pleural effusion. No pleural mass or thickening. AXILLA: No lymphadenopathy. UPPER ABDOMEN: Bilateral renal peripelvic cysts. OSSEOUS STRUCTURES: Mild degenerative changes of the spine and scoliosis. CT/CT chest w IV con IMPRESSION: New postsurgical changes following right upper lobe lobectomy. Multiple small pulmonary nodules, right greater than left, and areas of increased ground glass attenuation in the right lower lobe. This probably represents an infectious or inflammatory process. Fleischner guidelines were followed.
[2022-05-31] MEDS: iohexoL 350 MG/ML 100 ML INFUS..BTL IV (08:35)
== END 2022-05-31 07:49 | disposition home or self-care (01) ==
LOC: HO.CT 07:48
PROVIDERS: PCP Internal Medicine; Visit Provider Internal Medicine
DX: D3A.090 Benign carcinoid tumor of the bronchus and lung (principal)
CPT/HCPCS: 71260; Q9967

== ENCOUNTER 2022-07-14 09:23 | Outpatient (REF) | payer MEDICARE, SELFPAY ==
[2022-07-14 11:52] LABS: Alanine Aminotransferase 30 U/L (0-40); Albumin Level 4.3 g/dL (3.5-5.0); Alkaline Phosphatase 85 U/L (39-117); Aspartate Amino Transferase 23 U/L (5-37); Bilirubin Direct 0.3 mg/dL (0.0-0.5); Bilirubin Total 0.9 mg/dL (0.0-1.0); Total Protein 6.8 g/dL (6.5-8.0)
== END 2022-07-14 09:24 | disposition home or self-care (01) ==
LOC: HO.HMGCLDS 09:23
PROVIDERS: PCP Internal Medicine; Visit Provider Internal Medicine
DX: R94.5 Abnormal results of liver function studies (principal)
CPT/HCPCS: 36415; 80076

== ENCOUNTER → 2022-07-21 10:43 | Outpatient (BNVA) | payer MEDICARE, SELFPAY | PROVIDERS: PCP Internal Medicine; Visit Provider Surgery | DX: D3A.090 Benign carcinoid tumor of the bronchus and lung (principal); C44.611 Basal cell carcinoma of skin of unspecified upper limb, including shoulder; R91.8 Other nonspecific abnormal finding of lung field | CPT/HCPCS: 99212 ==

== ENCOUNTER → 2022-07-25 09:30 | Outpatient (BNVA) | payer MEDICARE, SELFPAY | PROVIDERS: PCP Internal Medicine; Visit Provider Internal Medicine Rheumatology | DX: R76.8 Other specified abnormal immunological findings in serum (principal); M25.531 Pain in right wrist; M25.532 Pain in left wrist; M19.031 Primary osteoarthritis, right wrist; M19.032 Primary osteoarthritis, left wrist | CPT/HCPCS: 99202 ==

== ENCOUNTER 2022-07-26 08:28 | Outpatient (REF) | payer MEDICARE, SELFPAY ==
--- NOTE | ~2022-07-26 | US_ITS ---
EXAMINATION: US THYROID CLINICAL INFORMATION: Thyroid nodule. COMPARISON: None. TECHNIQUE: Linear transducer grayscale and color Doppler examination with attention to the region of the thyroid. FINDINGS: SIZE: Measurements of the thyroid lobes and nodules are given in sagittal, anteroposterior and transverse dimensions respectively. Right Thyroid Lobe: 4.06 x 1.86 x 1.24 cm, volume 4.88 mL. Previously 3.6 x 2.0 x 1.6 cm, volume 6.0 mL. Parenchyma: The gland echotexture is homogeneous. Thyroid vascularity is normal. Left Thyroid Lobe: 4.71 x 1.69 x 1.09 cm, volume 4.56 mL. Previously 4.1 x 1.6 x 1.0 cm, volume 3.4 mL. Parenchyma: The gland echotexture is homogeneous. Thyroid vascularity is normal. Isthmus: 0.64 cm in maximum AP dimension. Previously 0.50 cm. Estimated total number of nodules greater than or equal to 1 cm: 0. Bottle Assembler nodules are described as follows: 1. Location: Right isthmus. Size: 0.92 x 0.54 x 0.97 cm, volume 0.25 mL. Previously: 0.90 x 0.50 x 0.80 cm, volume 0.21 mL. Nodule characteristics: Composition: Solid/almost completely solid (2). Echogenicity: Cannot be determined (1). Shape: Not taller than wide (0). Margins: Smooth (0). Echogenic Foci: None (0). ACR TI-RADS total points: 3 Previous: 4 ACR TI-RADS category: 3 Previous: 4 Significant change in size (>/= 20% in 2 dimensions and minimal increase of 2 mm or 50% or greater increase in volume): Change in features: No Change in ACR TI-RADS risk category: No 2. Location: Left inferior. Size: 0.61 x 0.42 x 0.57 cm, volume 0.08 mL. Previously: 0.50 x 0.40 x 0.50 cm, volume 0.05 mL. Nodule characteristics: Composition: Spongiform (0). Echogenicity: Anechoic (0). Shape: Not taller than wide (0). Margins: Smooth (0). Echogenic Foci: None (0). ACR TI-RADS total points: 0 Previous: 0 ACR TI-RADS category: 1 Previous: 1 Significant change in size (>/= 20% in 2 dimensions and minimal increase of 2 mm or 50% or greater increase in volume): Change in features: No Change in ACR TI-RADS risk category: No NODES: No lymphadenopathy is seen in the tissue surrounding the thyroid gland. US/US thyroid IMPRESSION: 1. No change in the subcentimeter bilateral thyroid nodules. 2. TR1 (0 point) and TR 2 (2 points): 3. TR4 (4-6 points): FNA if more than or equal to 1.5 cm in maximum dimension, followup ultrasound in 1, 2, 3 and 5 years if 1 to 1.4 cm in maximum dimension. 4. TR5 (more than or equal to 7 points): FNA if more than or equal to 1 cm in maximum dimension, followup ultrasound every year for 5 years if 0.5 to 0.9 cm in maximum dimension.
[2022-07-26 11:37] LABS: MANUAL DIFF FLAG NO
[2022-07-26 11:58] LABS: Basophils Percent Auto 0.5 % (0-2); Eosinophils Absolute Auto 0.2 X10*3/uL (0.0-0.4); Eosinophils Percent Auto 2.1 % (0-4); Hematocrit 45.5 % (42.0-52.0); Hemoglobin 14.9 g/dl (14.0-18.0); Imm Gran Abs Auto 0.02 X10*3/uL (0.00-0.03); Imm Gran Pct Auto 0.3 % (0.0-0.4); Lymphocytes Absolute Auto 1.6 X10*3/uL (1.2-4.9); Lymphocytes Percent Auto 21.2 % (20-40); Mean Corpuscular HGB Conc 32.7 g/dl (31.0-36.0); Mean Corpuscular Hemoglobin 30.8 pg (27.0-33.0); Mean Platelet Volume 9.9 fL (9.4-12.4); Monocytes Absolute Auto 0.6 X10*3/uL (0.1-1.2); Neutrophils Absolute Auto 5.1 x10*3/uL (2.0-8.3); Neutrophils Percent Auto 67.9 % (45-73); Platelet Count 282 X10*3/uL (160-400); Red Blood Count 4.84 X10*6/uL (4.60-5.80); Red Cell Distribution Width 12.2 % (11.0-16.0); White Blood Count 7.6 X10*3/uL (4.8-10.8)
[2022-07-26 12:11] LABS: Creatinine Urine 73.51 mg/dL; Total Protein Urine Random < 7 mg/dL (<12)
[2022-07-26 12:46] LABS: Erythrocyte Sedimentation Rate 3 MM/HR (0-15)
[2022-07-26 13:30] LABS: C Reactive Protein 0.16 mg/dL (< or = 0.50)
[2022-07-28 13:08] LABS: Anti DNA DS Antibody 1 IU/mL; SM/Ribonucleoprotein Ab <1.0 NEG AI (<1.0 NEG); Smith Protein <1.0 NEG AI (<1.0 NEG)
== END 2022-07-26 08:29 | disposition home or self-care (01) ==
LOC: HO.HMGCX 08:28
PROVIDERS: Absent Provider Internal Medicine Rheumatology; PCP Internal Medicine; Visit Provider Internal Medicine
DX: E07.9 Disorder of thyroid, unspecified (principal); R76.8 Other specified abnormal immunological findings in serum
CPT/HCPCS: 36415; 76536; 84156; 85025; 85652; 86140; 86225; 86235

== ENCOUNTER 2022-08-21 08:44 | Outpatient (REF) | payer MEDICARE, SELFPAY ==
--- NOTE | ~2022-08-21 | CT_ITS ---
EXAMINATION: CT CHEST WITHOUT CONTRAST CLINICAL INFORMATION: Pulmonary nodule COMPARISON: 09/30/2021 and 05/31/2022 TECHNIQUE: Multidetector volumetric CT imaging of the chest was done. Axial MIP volume rendering provided. Sagittal and coronal reformatted images were obtained. This CT examination was performed using dose optimization techniques as appropriate, variously including the following: *Automated exposure control *Adjustment of mA and/or kV according to patient size (this includes techniques or standardized protocols for targeted exams where dose is matched to indication/reason for exam; i.e. extremities or head) *Use of iterative reconstruction technique DLP: 199 mGy-cm FINDINGS: SCHOOL LEADER: Mild elevation of the right hemidiaphragm. LUNGS: The central airways are patent. Status post right upper lobectomy. Narrowing of the right middle lobe bronchus is unchanged. This can be seen on series 7 image 314. No dense consolidation. Mild centrilobular emphysema. On the prior study there were multiple probable infectious/inflammatory nodules which have resolved. The right lower lobe area of groundglass opacification has resolved. A few calcified granulomata are present. Triangular fissural lymph node along the left major fissure on series 7 image 329 is unchanged. No new/suspicious pulmonary nodules. MEDIASTINUM: Normal heart size. No pericardial effusion. No mediastinal adenopathy. CORONARY ARTERY CALCIFICATION: None visualized on this study. PLEURA: There is no pleural effusion. No pleural mass or thickening. AXILLA: No lymphadenopathy. UPPER ABDOMEN: Partial visualization of multiple right renal cysts. No specific follow-up recommended.. OSSEOUS STRUCTURES: No acute or suspicious osseous abnormality. Mild degenerative changes throughout the spine. CT/CT chest wo IV con IMPRESSION: 1. Mild emphysema. No new or suspicious pulmonary nodules. Resolution of previous infectious/inflammatory nodules. 2. Status post right upper lobectomy. Unchanged narrowing of the right middle lobe bronchus. Fleischner guidelines were followed.
== END 2022-08-21 08:45 | disposition home or self-care (01) ==
LOC: HO.CT 08:44
PROVIDERS: PCP Internal Medicine; Visit Provider Surgery
DX: R91.8 Other nonspecific abnormal finding of lung field (principal)
CPT/HCPCS: 71250

== ENCOUNTER → 2022-08-25 08:57 | Outpatient (BNVA) | payer MEDICARE, SELFPAY | PROVIDERS: PCP Internal Medicine; Visit Provider Surgery | DX: R91.8 Other nonspecific abnormal finding of lung field (principal); D3A.090 Benign carcinoid tumor of the bronchus and lung; Z90.2 Acquired absence of lung [part of] | CPT/HCPCS: 99212 ==

== ENCOUNTER 2022-12-13 07:46 | Outpatient (REF) | payer MEDICARE, SELFPAY | END 2022-12-13 07:47 | disposition home or self-care (01) | LOC: HO.SH 07:46 | PROVIDERS: Visit Provider Internal Medicine | DX: Z01.118 Encounter for examination of ears and hearing with other abnormal findings (principal); H90.3 Sensorineural hearing loss, bilateral; H93.13 Tinnitus, bilateral | CPT/HCPCS: 92557; 92567; 92700 ==

== ENCOUNTER 2023-02-21 08:45 | Outpatient (REF) | payer MEDICARE, SELFPAY ==
--- NOTE | ~2023-02-21 | CT_ITS ---
EXAMINATION: CT CHEST WITH CONTRAST CLINICAL INFORMATION: Surveillance. COMPARISON: CT chest 08/22/2022. TECHNIQUE: Multidetector volumetric CT imaging of the chest was obtained after the administration of 65 mL of Omnipaque 350 intravenous contrast without immediate adverse reactions. Axial MIP volume rendering provided. Sagittal and coronal reformatted images were obtained. This CT examination was performed using dose optimization techniques as appropriate, variously including the following: *Automated exposure control *Adjustment of mA and/or kV according to patient size (this includes techniques or standardized protocols for targeted exams where dose is matched to indication/reason for exam; i.e. extremities or head) *Use of iterative reconstruction technique DLP: 165 mGy-cm FINDINGS: [employer]CH[employer] PR[employer]ED [employer] BOARDS: Elevated right hemidiaphragm. The lungs are clear. LUNGS: There is partial right upper lobectomy with elevated right hemidiaphragm. Otherwise lungs are well expanded and clear of acute pneumonic process. There is a 1 mm calcified nodule right lower lobe. No noncalcified nodule or ground-glass density seen. Mild narrowing of right bronchus intermedius is unchanged. MEDIASTINUM: The thyroid lobes are symmetrical and normal. The central trachea and the bronchi are widely patent. Heart size and the great vessels are normal caliber. No pericardial effusion seen. No abnormal-sized mediastinal or hilar lymph node seen. PLEURA: There is no pleural effusion. No pleural mass or thickening. AXILLA: Unremarkable. UPPER ABDOMEN: Visualized liver, spleen, pancreas and bilateral adrenal glands unremarkable. There are bilateral peripelvic renal cysts and a cortical upper midpole 2.5 cm simple cyst. The kidneys are partially visualized. OSSEOUS STRUCTURES: No aggressive lytic or sclerotic process seen. There is mild ventral spondylosis mid dorsal spine. CT/CT chest w IV con IMPRESSION: 1. Partial right upper lobectomy with elevated right hemidiaphragm. No abnormal mediastinal or axillary lymphadenopathy seen. 2. A 1 mm calcified nodule right lower lobe. 3. Bilateral peripelvic renal cysts and upper/midpole right renal cyst. Fleischner guidelines were followed.
[2023-02-21] MEDS: iohexoL 350 MG/ML 100 ML INFUS..BTL IV (09:42)
[2023-02-21 13:22] LABS: Creatinine POC 0.7 mg/dL (0.5-1.4); GFR POC 60
== END 2023-02-21 08:46 | disposition home or self-care (01) ==
LOC: HO.CT 08:45
PROVIDERS: PCP Internal Medicine; Visit Provider Internal Medicine
DX: D3A.090 Benign carcinoid tumor of the bronchus and lung (principal)
CPT/HCPCS: 71260; 82565; Q9967

== ENCOUNTER 2023-03-02 09:25 | Outpatient (AMB) | payer MEDICARE, SELFPAY ==
--- NOTE | 2023-03-02 09:29 | A.OFFVIS_ITS ---
Intake Vital Signs 03/02/23 09:36 Height 5 ft 10 in Weight 222 lb BMI 31.9 BP 130/70 Blood Pressure Location Lt brachial Position Sitting Pulse 96 Pulse Oximetry (%) 99 Intake Visit Reasons: Follow up with Chest CT Allergies penicillin V Allergy (Unknown, Verified 03/02/23 09:30) u Penicillins [PENICILLINS] Allergy (Unknown, Verified 03/02/23 09:30) RASH lisinopril Adverse Reaction (Intermediate, Verified 03/02/23 09:30) cough tamsulosin Adverse Reaction (Intermediate, Verified 03/02/23 09:30) jaundice Medication List - Last Reconciled 03/02/23 by Precious Falcon MD albuterol sulfate 90 mcg/actuation 2 puffs inhalation Q6H PRN guaifenesin ER (Mucinex) 600 mg PO Q12H PRN [healthy Prostate 1 cap PO BID] Lactobacillus acidophilus (Probiotic) 10,000 mmu cells PO DAILY [id number] mcg (Centrum Men 50 Plus Minis) 150 tabs PO DAILY sodium chloride 2% (Esteban 128) 1 drp ophthalmic (eye) QID PRN HPI Follow up with Chest CT HPI Details 66-year-old male who underwent a da Gen right upper lobectomy and mediastinal lymphadenectomy for a 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 On 12/13/2021.? Clinically, he has done quite well since that time and is also followed by oncology here at [facility].? A CT scan was ordered for him in May 2022 which I reviewed showing no evidence of recurrence or new disease.? There are some groundglass areas on the right side in particular that are indistinct and not concerning for malignancy rather likely inflammatory or infectious.? There is no mediastinal lymphadenopathy appreciated.? There is no pleural fluid.? This scan was reviewed and interpreted by me directly.? After that we decided to do a 3 month follow-up CT scan of the chest which he had on 08/21/2022 reviewed interpreted by me directly showing that these areas of ground- glass have resolved.? There is some decreased luminal dimension of the middle lobe bronchus which I discussed with the patient as well. Repeat CT scan of the chest done on 02/21/2023 compared with previous on 08/21/2022 again shows no evidence of recurrence or new disease. There is no lymphadenopathy and no evidence of recurrence. During that time or now he denies any chest pain, cough, hemoptysis, fevers, chills, shortness of breath, or any unintentional weight loss.? He denies any new neurologic symptoms. ? ? 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[place] Surgical History History of bronchoscopy (~2021) History of cataract surgery (~2017) History of colonoscopy (~2017) History of hydrocelectomy (~2018) History of inguinal hernia repair (~2015) History of lobectomy of lung (~2021) History of mandibular surgery (~1972) History of surgery on arm Family History Mother Stroke Father Skin cancer (melanoma) Paternal Grandfather Skin cancer (melanoma) Paternal Uncle FHx: cancer of prostate Leukemia Paternal Uncle Cancer Social History Household Members: Significant Other Housing: House Alcohol intake: current Alcohol intake frequency: holidays/special occasions only Alcohol type: beer Patient Tobacco Use Status: Never used Tobacco e-Cigarette/Vaping Use: Never Used Second Hand Smoke Exposure: No service: No Current occupational status: retired Cognitive needs: No Hearing needs: No Vision needs: Yes Physical Exam Vital Signs: Last Vital Signs Pulse 96 03/02/23 09:36 BP 130/70 03/02/23 09:36 Pulse Ox 99 03/02/23 09:36 BMI result Body Mass Index 31.9 General: No acute distress HEENT: Moist mucous membranes, normocephalic, pupils equal round and reactive to light. Neck: No thyromegaly, supple, no JVD Lymph: No cervical, supraclavicular, or other lymphadenopathy Chest: No chest wall abnormalities or deformities wounds are all well healed Heart: Regular rate and rhythm Lungs: Clear to auscultation bilaterally Abdomen: Soft, nontender, normal bowel sounds Extremities: No edema, cyanosis, or clubbing. 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 He is doing quite well from a clinical standpoint and there is no evidence of recurrence or new disease on his most recent CT scan. I discussed this with him in detail. He also asked about a thyroid nodule that was seen on his PET scan initially for which he has had 2 ultrasounds and he tells me his oncologist is recommending a biopsy but does not know how to proceed with that. I did recommend that if his oncologist says he should get a biopsy that he probably should but he is reluctant and I urged him to discuss this further with his oncologist. Otherwise, from my standpoint will plan on doing a six-month follow-up CT scan of the chest and a visit with me after that. We also discussed the surveillance protocol after surgery for a carcinoid tumor in the lung which is a [address] scan of the chest for the 1st 2 years postoperatively followed by [address] scans unless there are new changes. Each CT scan will have a visit afterwards. He understands and agrees with this plan. Orders: Orders CT chest wo IV con 6 Months D3A.090 - Benign carcinoid tumor of the bronchus and lung Coding Level of Care Code Est Pt Level 4 (26594) Diagnoses Carcinoid tumor of lung D3A.090
[2023-03-02 09:36] VITALS: BP 130/70; PULSE 96; O2SAT 99; BMI 31.9
== END 2023-03-02 09:50 | disposition home or self-care (01) ==
PROVIDERS: PCP Internal Medicine; Visit Provider Surgery
DX: D3A.090 Benign carcinoid tumor of the bronchus and lung (principal)

== ENCOUNTER → 2023-03-02 09:25 | Outpatient (BNVA) | payer MEDICARE, SELFPAY | PROVIDERS: PCP Internal Medicine; Visit Provider Surgery | DX: D3A.090 Benign carcinoid tumor of the bronchus and lung (principal) | CPT/HCPCS: 99212 ==

== ENCOUNTER 2023-09-28 12:49 | Outpatient (AMB) | payer MEDICARE, SELFPAY ==
[2023-09-28 13:09] VITALS: BP 170/92; PULSE 88; O2SAT 98; BMI 32.1
--- NOTE | 2023-09-28 13:09 | MHC.PC.OV ---
Vital Signs 09/28/23 13:09 09/28/23 13:35 Height 5 ft 10 in Weight 224 lb BMI 32.1 BP 170/92 H 160/100 H Blood Pressure Location Lt brachial Lt brachial Position Sitting Sitting Pulse 88 Pulse Source Pulse Oximeter Pulse Oximetry (%) 98 Oxygen Delivery Method Room Air Intake Visit Reasons: Annual Exam Allergies penicillin V Allergy (Unknown, Verified 09/28/23 13:09) u Penicillins [PENICILLINS] Allergy (Unknown, Verified 09/28/23 13:09) RASH lisinopril Adverse Reaction (Intermediate, Verified 09/28/23 13:09) cough tamsulosin Adverse Reaction (Intermediate, Verified 09/28/23 13:09) jaundice Medication List - Last Reconciled 09/28/23 by Viri Malhotra MD [healthy Prostate 1 cap PO BID] Lactobacillus acidophilus (Probiotic) 10,000 mmu cells PO DAILY [id number] [id number] mcg (Centrum Minis Men 50 Plus) 150 tabs PO DAILY sodium chloride 2% (Esteban 128) 1 drp ophthalmic (eye) QID PRN sodium chloride 5% 1 drp ophthalmic (eye) QID PRN Tobacco use date assessed: 09/28/23 Fall risk assessment: No Falls in past year Last assessed Fall Risk: 09/28/23 Dental Screening Dental Screen Date: 09/28/23 Did you have a dental visit in the last 12 months?: Yes Did you have a dental problem in the last 6 months where you did not have access to dental care?: No Was dental information given to patient?: Patient has dentist HPI Annual Exam HPI Details 68-year-old obese male with a history of BPH history of carcinoid tumor of the lung in 2021 coming in for physical exam last seen in September for impacted cerumen. Patient's colonoscopy was last done in March 2018. Review of the notes has seen the thoracic surgeon for follow-up September 2023 had the Gen right upper lobectomy with large carcinoid tumor November 2021 with 1 positive hilar lymph node has had serial CT scan and most recent 1 was August 2023 no evidence of recurrence no mediastinal lymphadenopathy every [address] scan for the 1st 2 years followed by yearly for 8 years. 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 still has tinnitus [facility] Medical History Basal cell carcinoma, arm Carcinoid tumor of lung (~2021) Carpal tunnel syndrome Cataract COVID-19 virus infection Crohn's disease (~1993) Degenerative disc disease, cervical Elevated LFTs Ground glass opacity present on imaging of lung Hospital discharge follow-up Migraine Obesity with body mass index (BMI) of 30.0 to 39.9 Peripheral vascular disease Pulmonary nodule 1 cm or greater in diameter Schamberg's disease [facility] Surgical History History of bronchoscopy (~2021) History of cataract surgery (~2017) History of colonoscopy (~2017) History of hydrocelectomy (~2018) History of inguinal hernia repair (~2015) History of lobectomy of lung (~2021) History of mandibular surgery (~1972) History of surgery on arm Family History Mother Stroke Father Skin cancer (melanoma) Paternal Grandfather Skin cancer (melanoma) Paternal Uncle FHx: cancer of prostate Leukemia Paternal Uncle Cancer Social History (Updated 09/28/23 @ 13:42 by Viri Malhotra MD) Household Members: Significant Other Housing: House Alcohol intake: current Alcohol intake frequency: holidays/special occasions only Alcohol type: beer Comment: discharged home- 1-2 a week 1-2 bottles of beer Patient Tobacco Use Status: Never used Tobacco e-Cigarette/Vaping Use: Never Used Second Hand Smoke Exposure: No service: No Current occupational status: retired Cognitive needs: No Hearing needs: No Vision needs: Yes Questionnaire PHQ-9 Over the last 2 weeks, how often have you been bothered by any of the following problems? 1. Little interest or pleasure in doing things: not at all 2. Feeling down, depressed, or hopeless: not at all 3. Trouble falling or staying asleep, or sleeping too much: not at all 4. Feeling tired or having little energy: not at all 5. Poor appetite or overeating: not at all 6. Feeling bad about yourself - or that you are a failure or have let yourself or your family down: not at all 7. Trouble concentrating on things, such as reading the newspaper or watching television: not at all 8. Moving or speaking so slowly that other people could have noticed. Or the opposite - being so fidgety or restless that you have been moving around a lot more than usual: not at all 9. Thoughts that you would be better off or of hurting yourself in some way: not at all Total score: 0 Depression Screening Interpretation: Negative Depression Screening Done: Yes Source: Developed by Drs. Benito Colbert, Serena Buckley, Rito Padgett and colleagues, with an educational chu from [employer]. Thrive Questionnaire Date Thrive assessed: 09/28/23 I am a: Patient What is your living situation today?: I have a steady place to live Within the past 12 months, did the food you bought not last and you didn't have the money to get more?: Never true Within the past 12 months, did you worry whether your food would run out before you got money to buy more?: Never true Do you have trouble paying for medicines?: No Do you have trouble getting transportation to medical appointments?: No Do you have trouble paying your heating and electricity bill?: No Do you have trouble taking care of your child, family member or friend?: No Do you have trouble with day-to-day activities such as bathing, preparing meals, shopping, managing finances, etc.?: No Are you currently unemployed and looking for a job?: No Are you interested in more education?: No Currently or been in a relationship where the following occur: no concerns reported THRIVE Score: 0 AUDIT C Alcohol Use Questionnaire (AUDIT-C) 1. How often do you have a drink containing alcohol?: 2-3 times a week 2. How many drinks containing alcohol do you have on a typical day when you are drinking?: 1 or 2 3. How often do you have six or more drinks on one occasion?: Never Total Score: 3 Score Reviewed/Action Taken: Yes CAPRI-7 AMB Questionnaire CAPRI-7 Date CAPRI - 7 assessed: 09/28/23 Feeling nervous, anxious, or on edge: 0 = Not at all Not being able to stop or control worryin = Not at all Worrying too much about different things: 0 = Not at all Trouble relaxin = Not at all Being so restless that it is hard to sit still: 0 = Not at all Becoming easily annoyed or irritable: 0 = Not at all Feeling afraid as if something awful might happen: 0 = Not at all Total CAPRI-7 score (0-4 normal; 5-9 mild; 10-14 moderate; 15-21 severe): 0 Source: Developed by Drs. Benito Colbert, Serena Buckley, Rito Padgett and colleagues, with an educational chu from [employer]. Review of Systems Const Denies poor appetite and Denies weakness Eyes Denies no additional complaints ENT Reports Normal hearing present, Denies dizziness, Denies nasal congestion, Denies tinnitus and Denies sore throat Card Denies chest pain, Denies syncope, Denies rapid heart rate and Denies dyspnea Resp Denies cough and Denies dyspnea GI Denies change in stool character, Reports constipation, Denies diarrhea, Denies nausea and Denies vomiting Denies dysuria and Denies urinary frequency Neuro Reports Normal hearing present, Denies confusion, Denies dizziness, Denies syncope and Denies weakness Psych Denies confusion Physical exam (Primary Care) Vital Signs: Last Vital Signs Pulse 88 09/28/23 13:09 BP 170/92 H 09/28/23 13:09 Pulse Ox 98 09/28/23 13:09 Oxygen Delivery Method Room Air 09/28/23 13:09 BMI result Body Mass Index 32.1 Tobacco/Smoking Status: Tobacco use Status Tobacco use date assessed 09/28/23 09/28/23 13:18 Patient Tobacco Use Status Never used Tobacco 09/28/23 13:18 e-Cigarette/Vaping Use Never Used 09/28/23 13:18 PHQ-9: PHQ-9 Score PHQ-9: Total score 0 09/28/23 13:18 Depression Screening Interpretation: Negative Thrive Assessment: Date of Thrive Assessment Date Thrive assessed 09/28/23 09/28/23 13:18 Currently or been in a relationship where the following occur: no concerns reported Const General: No confusion Orientation/consciousness: No confusion HENMT Head: Yes normocephalic Ears: external ears normal and TM's normal bilaterally Face and sinus: Yes normal facial exam Mouth: moist mucous membranes Throat: Yes tonsils normal Eyes Conjunctivae: conjunctivae normal Pupils: Equal, round and reactive pupils present and Pupil accommodation reflex normal Direct Ophthalmoscopy: normal light reflex Neck Neck: No lymphadenopathy Thyroid: Thyroid normal Chest Chest palpation & inspection: normal inspection of the chest Resp Effort & Inspection: normal respiratory effort and no audible wheezes Auscultation: clear to auscultation bilaterally, no crackles, no wheezes and lung sounds not diminished Cardio Rate: regular rate Rhythm: regular rhythm Peripheral pulses: radial pulses present and dorsalis pedis present GI Other: guaiac negative and prostate mild enlarged Palpation (GI): no masses Auscultation: normal bowel sounds and normoactive bowel sounds Rectal Exam - Male: Yes deferred Male General Exam: Yes normal external exam Skin General skin exam: no rashes or lesions noted Rashes: no rashes Neuro General: No confusion Cranial nerves: Yes Equal, round and reactive pupils present and Yes Normal hearing present Cognition (Neuro): normal cognition Gait exam (Neuro): Normal gait present Motor exam (neuro): 5/5 motor strength present throughout Deep tendon reflexes (DTR's): Right brachioradialis reflex intensity grade: 2+, Left brachioradialis reflex intensity grade: 2+, Right patellar reflex intensity grade: 2+ and Left patellar reflex intensity grade: 2+ Extrem General: No edema Assessment and Plan Assessment & Plan (1) Annual physical exam: Code(s): Z00.00 - Encounter for general adult medical examination without abnormal findings (2) Carcinoid tumor of lung: Onset Date: ~2021 Comment: Atypical carcinoid/Neuroendocrine tumor grade 2 (s/p Da Gen RUL lobectomy on 12/13/21) August 2022surveillance imaging as per protocol which is a CT scan every 6 months for the 1st 2 years postoperatively followed by yearly for 7 years after Code(s): D3A.090 - Benign carcinoid tumor of the bronchus and lung Plan: Patient is presently under surveillance surgery November 2021 every 6 months for [address] scan was done in August 2023 and then yearly for 8 years (3) Thyroid mass: Comment: Ultrasound of the thyroid reveals thyroid nodules with the is most having an 9 mm nodule July 2022No change in the subcentimeter bilateral thyroid nodules. 2. TR1 (0 point) and TR 2 (2 points): 3. TR4 (4-6 points): FNA if more than or equal to 1.5 cm in maximum dimension, followup ultrasound in 1, 2, 3 and 5 years if 1 to 1.4 cm in maximum dimension. 4. TR5 (more than or equal to 7 points): FNA if more than or equal to 1 cm in maximum dimension, followup ultrasound every year for 5 years if 0.5 to 0.9 cm in maximum dimension. Code(s): E07.9 - Disorder of thyroid, unspecified Plan: Patient has met with the surgeon for thyroid surgery. 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 Panel Today N40.0 - Benign prostatic hyperplasia without lower urinary tract symptoms Free T4 (Free Thyroxine) Today N40.0 - Benign prostatic hyperplasia without lower urinary tract symptoms Vitamin B12 and Folate Today N40.0 - Benign prostatic hyperplasia without lower urinary tract symptoms Lipid Panel Today E78.00 - Pure hypercholesterolemia, unspecified, N40.0 - Benign prostatic hyperplasia without lower urinary tract symptoms Prostate Specific Antigen Scr Today N40.0 - Benign prostatic hyperplasia without lower urinary tract symptoms Medications: New ciclopirox 8% 1 appl topical BEDTIME 4 weeks 6.6 mL 2RF B35.1 - Tinea unguium Coding Level of Care Code Est Pt Prev Care >65y(91838) Diagnoses Annual physical exam Z00.00 Carcinoid tumor of lung D3A.090 Thyroid mass E07.9 Hurthle cell carcinoma of thyroid C73 Frequency of micturition R35.0 Additional Codes PHQ-9 - 68890 - PHQ-9 Billing: ([id number])
[2023-09-28 13:35] VITALS: BP 160/100
== END 2023-09-28 14:05 | disposition home or self-care (01) ==
PROVIDERS: Visit Provider Internal Medicine
DX: Z00.00 Encounter for general adult medical examination without abnormal findings (principal); D3A.090 Benign carcinoid tumor of the bronchus and lung; E07.9 Disorder of thyroid, unspecified; C73 Malignant neoplasm of thyroid gland; R35.0 Frequency of micturition
CPT/HCPCS: 99397

== ENCOUNTER 2023-10-11 09:51 | Outpatient (REF) | payer MEDICARE, SELFPAY ==
--- NOTE | ~2023-10-11 | US_ITS ---
EXAMINATION: US PELVIS LIMITED (BLADDER) CLINICAL INFORMATION: Frequency of micturition. COMPARISON: CT abdomen and pelvis 01/12/2022. Ultrasound urinary bladder 04/09/2018. TECHNIQUE: Real-time imaging of the bladder. FINDINGS: BLADDER: Well distended and unremarkable. Bilateral ureteral jets are demonstrated. Prevoid bladder volume is 407 mL. Postvoid bladder volume is 71.7 mL. Enlarged prostate, volume 35.0 mL. US/US bladder IMPRESSION: 1. Enlarged prostate. 2. Postvoid bladder volume 71.7 mL.
== END 2023-10-11 09:52 | disposition home or self-care (01) ==
LOC: HO.HMGCX 09:51
PROVIDERS: PCP Internal Medicine; Visit Provider Internal Medicine
DX: R35.0 Frequency of micturition (principal)
CPT/HCPCS: 76857

== ENCOUNTER 2023-10-16 16:32 | Outpatient (AMB) | payer MEDICARE, SELFPAY ==
--- NOTE | 2023-10-16 16:33 | A.OFFPC_ITS ---
Intake Visit Reasons: Fungus Allergies penicillin V Allergy (Unknown, Verified 10/16/23 16:34) u Penicillins [PENICILLINS] Allergy (Unknown, Verified 10/16/23 16:34) RASH lisinopril Adverse Reaction (Intermediate, Verified 10/16/23 16:34) cough tamsulosin Adverse Reaction (Intermediate, Verified 10/16/23 16:34) jaundice Medication List - Last Reconciled 10/16/23 by Viri Malhotra, ciclopirox 8% 1 appl topical BEDTIME 4 weeks [healthy Prostate 1 cap PO BID] Lactobacillus acidophilus (Probiotic) 10,000 mmu cells PO DAILY [id number] [id number] mcg (Centrum Minis Men 50 Plus) 150 tabs PO DAILY sodium chloride 2% (Esteban 128) 1 drp ophthalmic (eye) QID PRN sodium chloride 5% 1 drp ophthalmic (eye) QID PRN Tobacco use date assessed: 10/16/23 Fall risk assessment: No Falls in past year Last assessed Fall Risk: 10/16/23 Dental Screening Dental Screen Date: 09/28/23 HPI Fungus HPI Details 68-year-old male with a history of carci noid tumor of the lung and Hurthle cell carcinoma of the thyroid coming in for follow-up through Telehealth. Patient has onychomycosis and was prescribed Penlac but insurance does not want to pay for this. Reached out to the patient also earlier regarding the ultrasound that was done because the patient has BPH. Referral to urology done. Patient also complains about intermittently having postnasal drip and having secretions in the morning on the throat with greenish discharge. Denies any shortness a breath or fever and this usually occurs in the morning. [facility] Medical History Basal cell carcinoma, arm Carcinoid tumor of lung (~2021) Carpal tunnel syndrome Cataract COVID-19 virus infection Crohn's disease (~1993) Degenerative disc disease, cervical Elevated LFTs Ground glass opacity present on imaging of lung Hospital discharge follow-up Migraine Obesity with body mass index (BMI) of 30.0 to 39.9 Peripheral vascular disease Pulmonary nodule 1 cm or greater in diameter Schamberg's disease [facility] Surgical History History of bronchoscopy (~2021) History of cataract surgery (~2017) History of colonoscopy (~2017) History of hydrocelectomy (~2018) History of inguinal hernia repair (~2015) History of lobectomy of lung (~2021) History of mandibular surgery (~1972) History of surgery on arm Family History Mother Stroke Father Skin cancer (melanoma) Paternal Grandfather Skin cancer (melanoma) Paternal Uncle FHx: cancer of prostate Leukemia Paternal Uncle Cancer Social History (Updated 09/28/23 @ 13:42 by Viri Malhotra MD) Household Members: Significant Other Housing: House Alcohol intake: current Alcohol intake frequency: holidays/special occasions only Alcohol type: beer Comment: discharged home- 1-2 a week 1-2 bottles of beer Patient Tobacco Use Status: Never used Tobacco e-Cigarette/Vaping Use: Never Used Second Hand Smoke Exposure: No service: No Current occupational status: retired Cognitive needs: No Hearing needs: No Vision needs: Yes Questionnaire Thrive Questionnaire Date Thrive assessed: 09/28/23 AUDIT C Alcohol Use Questionnaire (AUDIT-C) 1. How often do you have a drink containing alcohol?: 2-3 times a week 2. How many drinks containing alcohol do you have on a typical day when you are drinking?: 1 or 2 3. How often do you have six or more drinks on one occasion?: Never Total Score: 3 Score Reviewed/Action Taken: Yes CAPRI-7 AMB Questionnaire CAPRI-7 Date CAPRI - 7 assessed: 09/28/23 Source: Developed by Drs. Benito Colbert, Serena Buckley, Rito Padgett and colleagues, with an educational chu from [employer]. Physical exam (Primary Care) Tobacco/Smoking Status: Tobacco use Status Tobacco use date assessed 10/16/23 10/16/23 16:35 Patient Tobacco Use Status Never used Tobacco 10/16/23 16:35 e-Cigarette/Vaping Use Never Used 10/16/23 16:35 Thrive Assessment: Date of Thrive Assessment Date Thrive assessed 09/28/23 10/16/23 16:35 Telehealth Telehealth Location of provider rendering services: practice address Location of patient: address on file Patient Identification confirmed using: Name, : Yes Telehealth method: voice only (android ) Patient verbally consented to treatment: Yes Patient verbally consented to billing insurance company: Yes Patient informed of any privacy concerns related to visit: Yes Minutes spent on Phone/Video with Pt.: 25 Assessment and Plan Assessment & Plan (1) Onychomycosis: Code(s): B35.1 - Tinea unguium Plan: PAtient has multiple medical problem and would advise to refrain systemic medication to avoid any harm to the liver. And so with this we have stayed with topical treatment for onychomycosis. (2) Postnasal drip: Code(s): R09.82 - Postnasal drip Plan: Reassurance with patient and keep well hydrated. (3) Frequency of micturition: Code(s): R35.0 - Frequency of micturition Plan: Discussion with the patient regarding the ultrasound test that was done showing urinary retention with BPH referral to urology (4) BPH (benign prostatic hyperplasia): Code(s): N40.0 - Benign prostatic hyperplasia without lower urinary tract symptoms Plan: Urology referral done Coding Level of Care Code Tele Est Pt Level 4 (68122) Diagnoses Onychomycosis B35.1 Postnasal drip R09.82 Frequency of micturition R35.0 BPH (benign prostatic hyperplasia) N40.0
== END 2023-10-16 17:54 | disposition home or self-care (01) ==
LOC: HO.HMGH 16:32
PROVIDERS: PCP Internal Medicine; Visit Provider Internal Medicine
DX: B35.1 Tinea unguium (principal); R09.82 Postnasal drip; R35.0 Frequency of micturition; N40.0 Benign prostatic hyperplasia without lower urinary tract symptoms
CPT/HCPCS: 99443

== ENCOUNTER 2023-10-22 12:49 | Outpatient (REF) | payer MEDICARE, SELFPAY ==
[2023-10-22 16:12] LABS: MANUAL DIFF FLAG NO
[2023-10-22 16:20] LABS: Basophils Percent Auto 0.6 % (0-2); Eosinophils Absolute Auto 0.1 X10*3/uL (0.0-0.4); Hematocrit 46.6 % (42.0-52.0); Hemoglobin 15.5 g/dl (14.0-18.0); Imm Gran Abs Auto 0.02 X10*3/uL (0.00-0.03); Imm Gran Pct Auto 0.3 % (0.0-0.4); Lymphocytes Absolute Auto 1.6 X10*3/uL (1.2-4.9); Lymphocytes Percent Auto 22.3 % (20-40); Mean Corpuscular HGB Conc 33.3 g/dl (31.0-36.0); Mean Corpuscular Hemoglobin 31.1 pg (27.0-33.0); Mean Corpuscular Volume 93.6 fL (80.0-98.0); Mean Platelet Volume 9.9 fL (9.4-12.4); Monocytes Absolute Auto 0.4 X10*3/uL (0.1-1.2); Monocytes Percent Auto 5.4 % (2-11); Neutrophils Absolute Auto 4.9 x10*3/uL (2.0-8.3); Neutrophils Percent Auto 70.4 % (45-73); Platelet Count 292 X10*3/uL (160-400); Red Blood Count 4.98 X10*6/uL (4.60-5.80); Red Cell Distribution Width 12.3 % (11.0-16.0)
[2023-10-22 16:58] LABS: Alanine Aminotransferase 18 U/L (0-40); Albumin Level 4.2 g/dL (3.5-5.0); Alkaline Phosphatase 68 U/L (39-117); Anion Gap 9 (12-20); Aspartate Amino Transferase 22 U/L (5-37); Bilirubin Total 0.8 mg/dL (0.0-1.0); Blood Urea Nitrogen 15 mg/dL (9-16); Calcium 9.7 mg/dL (8.4-10.2); Carbon Dioxide 31 mmol/L (22-29); Chloride 105 mmol/L (96-108); Cholesterol 163 mg/dL (<200); Estimated Glomerular Filt Rate > 60; Glucose Random 76 mg/dL (60-115); HDL Cholesterol 52 mg/dL (>40); LDL Cholesterol Calculated 100 mg/dL (<100); Potassium 4.4 mmol/L (3.3-5.1); Sodium 141 mmol/L (135-145); Total Protein 7.4 g/dL (6.5-8.0); Triglycerides 56 mg/dL (<150)
[2023-10-22 17:04] LABS: Folate 13.1 ng/mL (> or = 4.0); Prostate Specific Antigen Scr 1.93 ng/mL (<0.05-4.0); Vitamin B12 538 pg/mL (200-900)
== END 2023-10-22 12:50 | disposition home or self-care (01) ==
LOC: HO.HMGCLDS 12:49
PROVIDERS: PCP Internal Medicine; Visit Provider Internal Medicine
DX: N40.0 Benign prostatic hyperplasia without lower urinary tract symptoms (principal); E78.00 Pure hypercholesterolemia, unspecified; Z12.5 Encounter for screening for malignant neoplasm of prostate
CPT/HCPCS: 36415; 80053; 80061; 82607; 82746; 84153; 84439; 85025

== ENCOUNTER 2023-12-21 15:09 | Outpatient (AMB) | payer MEDICARE, SELFPAY ==
--- NOTE | 2023-12-21 15:34 | MHC.OFFVIS ---
Intake Visit Reasons: BPH Intake Note: New patient is present for BPH with Retention. Patient was seen in [address] Pichardo Medication: OTC Prostate supplements PVR: 77 Allergies penicillin V Allergy (Unknown, Verified 03/13/24 11:27) u Penicillins [PENICILLINS] Allergy (Unknown, Verified 03/13/24 11:27) RASH lisinopril Adverse Reaction (Intermediate, Verified 03/13/24 11:27) cough tamsulosin Adverse Reaction (Intermediate, Verified 03/13/24 11:27) jaundice HPI Comments Details: Jovanny is a pleasant male. He is a patient of Dr. Malhotra. He is seen for the following urologic conditions - lower urinary tract symptoms Lower urinary tract symptoms Progressive weakness of stream Incomplete bladder emptying PSA - 11/06 1.9 Based on current PSA and progressive symptoms trial alpha-arline Prior concerns regarding blood pressure impact from other medications Will use alfuzosin Two month trial with plans cystoscopy [facility] Medical History COVID-19 virus infection Ground glass opacity present on imaging of lung Hospital discharge follow-up Elevated LFTs Carcinoid tumor of lung (~2021) Pulmonary nodule 1 cm or greater in diameter Cataract Verruca Obesity with body mass index (BMI) of 30.0 to 39.9 Basal cell carcinoma, arm Schamberg's disease Migraine Peripheral vascular disease Crohn's disease (~1993) Degenerative disc disease, cervical Carpal tunnel syndrome Surgical History History of lobectomy of lung (~2021) History of bronchoscopy (~2021) History of hydrocelectomy (~2018) History of surgery on arm History of mandibular surgery (~1972) History of colonoscopy (~2017) History of cataract surgery (~2017) History of inguinal hernia repair (~2015) Family History Mother Stroke Father Skin cancer (melanoma) Paternal Grandfather Skin cancer (melanoma) Paternal Uncle FHx: cancer of prostate Leukemia Paternal Uncle Cancer Social History Household Members: Significant Other Housing: House Alcohol intake: current Alcohol intake frequency: holidays/special occasions only Alcohol type: beer Comment: discharged home- 1-2 a week 1-2 bottles of beer Patient Tobacco Use Status: Never used Tobacco e-Cigarette/Vaping Use: Never Used Second Hand Smoke Exposure: No service: No Current occupational status: retired Cognitive needs: No Hearing needs: No Vision needs: Yes Review of Systems Const Denies chills and Denies fever(s) Card Reports no additional complaints and Denies syncope Resp Denies cough GI Denies abdominal pain and Denies heartburn Reports as per HPI and Denies change in libido Neuro Denies syncope Psych Denies change in libido Endo Denies change in libido Physical Exam Const General: cooperative, healthy appearing, comfortable and no acute distress Orientation/consciousness: patient oriented x3 HEENT Face and sinus: Yes normal facial exam Mouth: moist mucous membranes Neck Neck: Yes normal visual inspection, Yes full ROM and Yes trachea midline Chest Chest palpation & inspection: normal inspection of the chest Resp Effort & Inspection: normal respiratory effort, able to speak in complete sentences and no respiratory distress GI Inspection: Yes normal to inspection Back/Spine/Pelvis Cervical Spine: normal cervical lordosis Thoracic/Lumbar Spine: thoracic and lumbar spine normal to inspection Skin General skin exam: no rashes or lesions noted Neuro General: patient oriented x3, gait normal, tone normal and moves all extremities Extrem General: Yes normal to inspection and Yes capillary refill normal Office Procedures Post Void Residual Post Residual Void Post Void Residual (PVR): 77 [id number] Void Residual by ultrasound Assessment & Plan Assessment & Plan (1) BPH (benign prostatic hyperplasia): Code(s): N40.0 - Benign prostatic hyperplasia without lower urinary tract symptoms Category: Medical Plan Trial of alfuzosin Plan cystoscopy Orders: Orders AMB Post Void Residual by ultrasound 12/21/23 N40.0 - Benign prostatic hyperplasia without lower urinary tract symptoms Medications: New alfuzosin ER Take before bedtime 10 mg PO BEDTIME 30 tabs 1RF 30 days N40.0 - Benign prostatic hyperplasia without lower urinary tract symptoms, R39.12 - Poor urinary stream, R35.1 - Nocturia, N40.1 - Benign prostatic hyperplasia with lower urinary tract symptoms, R33.9 - Retention of urine, unspecified, N32.0 - Bladder-neck obstruction alfuzosin ER Take before bedtime 10 mg PO BEDTIME 30 tabs 1RF 30 days N40.0 - Benign prostatic hyperplasia without lower urinary tract symptoms, R39.12 - Poor urinary stream, R35.1 - Nocturia, N40.1 - Benign prostatic hyperplasia with lower urinary tract symptoms, R33.9 - Retention of urine, unspecified, N32.0 - Bladder-neck obstruction Patient Instructions: Imaging studies, laboratory and physical exam results were discussed and reviewed in detail. No major barriers to patient understanding were identified. An opportunity to ask questions regarding the treatment plan was provided. All questions were answered. The patient expressed understanding and agreement with the above treatment plan. The patient is aware they should contact our office by phone for worsening of their current condition or the appearance of new urologic symptoms. Compliance is encouraged with any medications and followup testing that is ordered. It is a privilege to participate in the urologic care of your patient. If you have any questions or concerns regarding treatment for the above conditions, or other urologic issues, please do not hesitate to contact me. The office telephone contact is [phone]. This note is constructed using voice recognition software. While every effort has been made to ensure accuracy stud master/mistress errors may have been included. Yours sincerely, Dr Luis Pichardo MD, [facility] - Urology Providers of Expert, Compassionate Care for the Genitourinary System Coding Level of Care Code New Pt Level 4 (78393) Diagnoses BPH (benign prostatic hyperplasia) N40.0 CPT Codes Post Residual Void - PVR CPT Code: 63575-Lncw Void Residual by ultrasound ([id number])
== END 2023-12-21 16:13 | disposition home or self-care (01) ==
PROVIDERS: PCP Internal Medicine; Visit Provider Urology
DX: N40.0 Benign prostatic hyperplasia without lower urinary tract symptoms (principal)
CPT/HCPCS: 99204

== ENCOUNTER → 2023-12-21 15:09 | Outpatient (BNVA) | payer MEDICARE, SELFPAY | PROVIDERS: PCP Internal Medicine; Visit Provider Urology | DX: N40.1 Benign prostatic hyperplasia with lower urinary tract symptoms (principal); R33.8 Other retention of urine | CPT/HCPCS: 51798; 99202 ==

== ENCOUNTER 2024-01-18 09:44 | Outpatient (AMB) | payer MEDICARE, SELFPAY ==
[2024-01-18 10:01] VITALS: BP 132/84; PULSE 78; O2SAT 98; BMI 32.3
--- NOTE | 2024-01-18 10:01 | A.OFFPC_ITS ---
Vital Signs 01/18/24 10:01 Height 5 ft 10 in Weight 225 lb BMI 32.3 BP 132/84 Blood Pressure Location Lt brachial Position Sitting Pulse 78 Pulse Source Pulse Oximeter Pulse Oximetry (%) 98 Oxygen Delivery Method Room Air Intake Visit Reasons: hurtle cell thyroid, carcinoid Turner Off Required: No Accompanied by: Self / Same As Patient Allergies penicillin V Allergy (Unknown, Verified 01/18/24 10:18) u Penicillins [PENICILLINS] Allergy (Unknown, Verified 01/18/24 10:18) RASH lisinopril Adverse Reaction (Intermediate, Verified 01/18/24 10:18) cough tamsulosin Adverse Reaction (Intermediate, Verified 01/18/24 10:18) jaundice Tobacco use date assessed: 10/16/23 Fall risk assessment: No Falls in past year Last assessed Fall Risk: 01/18/24 Dental Screening Dental Screen Date: 09/28/23 HPI hurtle cell thyroid, carcinoid HPI Details 68-year-old obese male with a history of BPH has a history of carcinoid tumor of the lung, Hurthle cell carcinoma of the thyroid coming in for follow- up. Last seen in 11/03/2023. Patient's colonoscopy was last done in March 2018 and it is due. Review of the notes was seen by Endocrinology in [id number] scheduled for excision of the is mastectomy. Patient also follows up with urology for the BPH with retention and this is basically just being monitored for now. Received also the note from Hematology-Oncology seen in 11/14/2023 for the carcinoid tumor of the lung status post the Gen right upper lobectomy and mediastinal lymphadenectomy 12/02/2021 no high risk features surveillance CT has been negative continue to be monitored. As for the thyroid nodule advised thyroid surgery. Dr. Schuster did the surgery January 15, 2024 - fast surgery- has a steristrip doing good, only complains is the hoarseness [facility] Medical History COVID-19 virus infection Ground glass opacity present on imaging of lung Hospital discharge follow-up Elevated LFTs Carcinoid tumor of lung (~2021) Pulmonary nodule 1 cm or greater in diameter Cataract Verruca Obesity with body mass index (BMI) of 30.0 to 39.9 Basal cell carcinoma, arm Schamberg's disease Migraine Peripheral vascular disease Crohn's disease (~1993) Degenerative disc disease, cervical Carpal tunnel syndrome Surgical History History of lobectomy of lung (~2021) History of bronchoscopy (~2021) History of hydrocelectomy (~2018) History of surgery on arm History of mandibular surgery (~1972) History of colonoscopy (~2017) History of cataract surgery (~2017) History of inguinal hernia repair (~2015) Family History Mother Stroke Father Skin cancer (melanoma) Paternal Grandfather Skin cancer (melanoma) Paternal Uncle FHx: cancer of prostate Leukemia Paternal Uncle Cancer Social History Household Members: Significant Other Housing: House Alcohol intake: current Alcohol intake frequency: holidays/special occasions only Alcohol type: beer Comment: discharged home- 1-2 a week 1-2 bottles of beer Patient Tobacco Use Status: Never used Tobacco e-Cigarette/Vaping Use: Never Used Second Hand Smoke Exposure: No service: No Current occupational status: retired Cognitive needs: No Hearing needs: No Vision needs: Yes Questionnaire Thrive Questionnaire Date Thrive assessed: 09/28/23 CAPRI-7 AMB Questionnaire CAPRI-7 Date CAPRI - 7 assessed: 09/28/23 Source: Developed by Drs. Benito Colbert, Serena Buckley, Rito Padgett and colleagues, with an educational chu from [employer]. Physical exam (Primary Care) Vital Signs: Last Vital Signs Pulse 78 01/18/24 10:01 BP 132/84 01/18/24 10:01 Pulse Ox 98 01/18/24 10:01 Oxygen Delivery Method Room Air 01/18/24 10:01 BMI result Body Mass Index 32.3 Tobacco/Smoking Status: Tobacco use Status Tobacco use date assessed 10/16/23 01/18/24 10:01 Patient Tobacco Use Status Never used Tobacco 01/18/24 10:01 e-Cigarette/Vaping Use Never Used 01/18/24 10:01 Thrive Assessment: Date of Thrive Assessment Date Thrive assessed 09/28/23 01/18/24 10:01 Const General: alert; No acute distress Eyes Conjunctivae: conjunctivae normal Resp Auscultation: clear to auscultation bilaterally Cardio Rate: regular rate Rhythm: regular rhythm GI Inspection: Yes normal to inspection Extrem General: Yes normal to inspection and No edema Assessment and Plan Assessment & Plan (1) Hurthle cell carcinoma of thyroid: Code(s): C73 - Malignant neoplasm of thyroid gland Plan: Review of the notes has seen endocrinology and planned thyroid surgery done January 15, 2024 (2) Carcinoid tumor of lung: Onset Date: ~2021 Comment: Atypical carcinoid/Neuroendocrine tumor grade 2 (s/p Da Gen RUL lobectomy on 12/13/21) August 2022surveillance imaging as per protocol which is a CT scan every 6 months for the 1st 2 years postoperatively followed by yearly for 7 years after Code(s): D3A.090 - Benign carcinoid tumor of the bronchus and lung Plan: Patient continues to be followed up by the surgeon as well as the Hematology- Oncology under surveillance with CT chest (3) BPH (benign prostatic hyperplasia): Code(s): N40.0 - Benign prostatic hyperplasia without lower urinary tract symptoms Plan: Continued to be seen by Urology on alfuzosin. 02/2024 will see Urology Coding Level of Care Code Est Pt Level 4 (56423) Diagnoses Hurthle cell carcinoma of thyroid C73 Carcinoid tumor of lung D3A.090 BPH (benign prostatic hyperplasia) N40.0
== END 2024-01-18 10:52 | disposition home or self-care (01) ==
PROVIDERS: PCP Internal Medicine; Visit Provider Internal Medicine
DX: C73 Malignant neoplasm of thyroid gland (principal); D3A.090 Benign carcinoid tumor of the bronchus and lung; N40.0 Benign prostatic hyperplasia without lower urinary tract symptoms
CPT/HCPCS: 99214

== ENCOUNTER 2024-03-13 10:56 | Outpatient (AMB) | payer MEDICARE, SELFPAY ==
--- NOTE | 2024-03-13 11:17 | MHC.OFFVIS ---
Intake Visit Reasons: CYSTO Intake Note: Patient is Present for Cystoscopy Urology Med: Alfuzsoin Antibiotic Allergy:Penicillins Blood Thinner: None URO- G Disposable Cystoscope lot: [id number] exp:10/24/2026 Patient states he is doing well on Alfuzosin Shank Maker Required: No Accompanied by: Self / Same As Patient Allergies penicillin V Allergy (Unknown, Verified 03/13/24 11:27) u Penicillins [PENICILLINS] Allergy (Unknown, Verified 03/13/24 11:27) RASH lisinopril Adverse Reaction (Intermediate, Verified 03/13/24 11:27) cough tamsulosin Adverse Reaction (Intermediate, Verified 03/13/24 11:27) jaundice HPI Comments Details: Jovanny is a pleasant male. He is a patient of Dr. Malhotra. He is seen for the following urologic conditions - lower urinary tract symptoms Cystoscopy today - Minimal medial hypertrophy Continue alfuzosin Good response to medication Lower urinary tract symptoms Progressive weakness of stream Incomplete bladder emptying PSA - 11/06 1.9 PFSH Medical History COVID-19 virus infection Ground glass opacity present on imaging of lung Hospital discharge follow-up Elevated LFTs Carcinoid tumor of lung (~2021) Pulmonary nodule 1 cm or greater in diameter Cataract Verruca Obesity with body mass index (BMI) of 30.0 to 39.9 Basal cell carcinoma, arm Schamberg's disease Migraine Peripheral vascular disease Crohn's disease (~1993) Degenerative disc disease, cervical Carpal tunnel syndrome Surgical History History of lobectomy of lung (~2021) History of bronchoscopy (~2021) History of hydrocelectomy (~2018) History of surgery on arm History of mandibular surgery (~1972) History of colonoscopy (~2017) History of cataract surgery (~2017) History of inguinal hernia repair (~2015) Family History Mother Stroke Father Skin cancer (melanoma) Paternal Grandfather Skin cancer (melanoma) Paternal Uncle FHx: cancer of prostate Leukemia Paternal Uncle Cancer Social History Household Members: Significant Other Housing: House Alcohol intake: current Alcohol intake frequency: holidays/special occasions only Alcohol type: beer Comment: discharged home- 1-2 a week 1-2 bottles of beer Patient Tobacco Use Status: Never used Tobacco e-Cigarette/Vaping Use: Never Used Second Hand Smoke Exposure: No service: No Current occupational status: retired Cognitive needs: No Hearing needs: No Vision needs: Yes Review of Systems Const Denies chills and Denies fever(s) Card Reports no additional complaints and Denies syncope Resp Denies cough GI Denies abdominal pain and Denies heartburn Reports as per HPI and Denies change in libido Neuro Denies syncope Psych Denies change in libido Endo Denies change in libido Physical Exam Const General: cooperative, healthy appearing, comfortable and no acute distress Orientation/consciousness: patient oriented x3 HEENT Face and sinus: Yes normal facial exam Mouth: moist mucous membranes Neck Neck: Yes normal visual inspection, Yes full ROM and Yes trachea midline Chest Chest palpation & inspection: normal inspection of the chest Resp Effort & Inspection: normal respiratory effort, able to speak in complete sentences and no respiratory distress GI Inspection: Yes normal to inspection Back/Spine/Pelvis Cervical Spine: normal cervical lordosis Thoracic/Lumbar Spine: thoracic and lumbar spine normal to inspection Skin General skin exam: no rashes or lesions noted Neuro General: patient oriented x3, gait normal, tone normal and moves all extremities Extrem General: Yes normal to inspection and Yes capillary refill normal Office Procedures Cystoscopy Consent Discussed risk and benefit or proposed procedure with the patient. Information consent for procedure given to the patient. Discussed technical aspects, risks, benefits and alternatives in full. Addressed all of the patient's questions and concerns regarding the procedure. The patient demonstrated knowledge and understanding. They wish to proceed with this procedure. Preparation The patient was prepped in the usual manner. A die repairer trimmer dies was present and in the room. Genitalia was prepped with betadine solution in a sterile manner. Lidocaine Jelly 2% was placed into the urethra and 16Fr flexible Olympus cystoscope was inserted into the meatus after adequate lubrication. Procedure Cystoscopy performed using a disposable [facility] digital 16 [place]ic cystoscope. Meatus circumcised Urethra anterior and posterior urethra normal Prostatic Urethra open prostate Bladder examination with retroflexion of cystoscope Bladder Orifices normal shape and position Bladder Capacity medium Trabeculations grade 1 Cellule Formation no Diverticulum Formation - Mucosal Erythema - Bladder Tumor - [id number] DISPOSABLE SCOPE URO-G FLEXIBLE SCOPE Procedure code (CPT) selection complete Office Meds lidocaine HCl 2 % mucosal jelly in applicator Performing Provider: Luis Pichardo MD Performing Location: [facility] Administered by: Morgan Kamara LPN on 03/13/24 11:39 Dose Route Admin Location Dispensed Lot Number Expiration Date ND Roller Embosser 10 mL intra-urethral 10 mL nitrofurantoin monohydrate/macrocrystals 100 mg capsule Performing Provider: Luis Pichardo MD Performing Location: [facility] Administered by: Morgan Kamara LPN on 03/13/24 11:39 Dose Route Admin Location Dispensed Lot Number Expiration Date NDC Roller Embosser 100 mg PO 1 cap naproxen 500 mg tablet Performing Provider: Luis Pichardo MD Performing Location: [facility] Administered by: Morgan Kamara LPN on 03/13/24 11:39 Dose Route Admin Location Dispensed Lot Number Expiration Date NDC Roller Embosser 500 mg PO 1 tab Assessment & Plan Assessment & Plan (1) Frequency of micturition: Code(s): R35.0 - Frequency of micturition Category: Medical (2) BPH (benign prostatic hyperplasia): Code(s): N40.0 - Benign prostatic hyperplasia without lower urinary tract symptoms Category: Medical Plan Six month follow-up PVR Orders: Orders AMB Cystoscopy Today N40.0 - Benign prostatic hyperplasia without lower urinary tract symptoms Medications: Changed From alfuzosin ER Take before bedtime 10 mg PO BEDTIME 30 days 30 tabs 1RF N32.0 - Bladder-neck obstruction, N40.1 - Benign prostatic hyperplasia with lower urinary tract symptoms, R33.9 - Retention of urine, unspecified, R35.1 - Nocturia, R39.12 - Poor urinary stream To alfuzosin ER Take before bedtime 10 mg PO BEDTIME 90 days 90 tabs 1RF N32.0 - Bladder-neck obstruction, N40.1 - Benign prostatic hyperplasia with lower urinary tract symptoms, R33.9 - Retention of urine, unspecified, R35.1 - Nocturia, R39.12 - Poor urinary stream Patient Instructions: Imaging studies, laboratory and physical exam results were discussed and reviewed in detail. No major barriers to patient understanding were identified. An opportunity to ask questions regarding the treatment plan was provided. All questions were answered. The patient expressed understanding and agreement with the above treatment plan. The patient is aware they should contact our office by phone for worsening of their current condition or the appearance of new urologic symptoms. Compliance is encouraged with any medications and followup testing that is ordered. It is a privilege to participate in the urologic care of your patient. If you have any questions or concerns regarding treatment for the above conditions, or other urologic issues, please do not hesitate to contact me. The office telephone contact is [phone]. This note is constructed using voice recognition software. While every effort has been made to ensure accuracy national guard member errors may have been included. Yours sincerely, Dr Luis Pichardo MD, [facility] - Urology Providers of Expert, Compassionate Care for the Genitourinary System Coding Level of Care Code Est Pt Level 3 (79417) Diagnoses Frequency of micturition R35.0 BPH (benign prostatic hyperplasia) N40.0 CPT Codes Cystoscopy - CPT: 20440-[id number] ([id number])
== END 2024-03-13 12:03 | disposition home or self-care (01) ==
PROVIDERS: PCP Internal Medicine; Visit Provider Urology
DX: R35.0 Frequency of micturition (principal); N40.0 Benign prostatic hyperplasia without lower urinary tract symptoms
CPT/HCPCS: 52000; 99213

== ENCOUNTER → 2024-03-13 10:56 | Outpatient (BNVA) | payer MEDICARE, SELFPAY | PROVIDERS: PCP Internal Medicine; Visit Provider Urology | DX: N40.1 Benign prostatic hyperplasia with lower urinary tract symptoms (principal); R35.0 Frequency of micturition; R33.8 Other retention of urine; R39.12 Poor urinary stream; Z79.899 Other long term (current) drug therapy | CPT/HCPCS: 52000; 99212 ==

== ENCOUNTER 2024-05-01 09:28 | Outpatient (AMB) | payer MEDICARE, SELFPAY ==
--- NOTE | 2024-05-01 10:28 | MHC.OFFWIV ---
Intake Vital Signs 05/01/24 10:30 Height 5 ft 10 in Weight 226 lb BMI 32.4 BP 140/90 H Blood Pressure Location Lt brachial Position Sitting Pulse 99 Pulse Source Pulse Oximeter Pulse Oximetry (%) 99 Oxygen Delivery Method Room Air Intake Visit Reasons: EP pain on LT ankle Intake Note: Patient here for left ankle pain which has been going on for a couple of weeks. no known injuries Patient Tobacco Use Status: Never used Tobacco Allergies penicillin V Allergy (Unknown, Verified 05/01/24 10:31) u Penicillins [PENICILLINS] Allergy (Unknown, Verified 05/01/24 10:31) RASH lisinopril Adverse Reaction (Intermediate, Verified 05/01/24 10:31) cough tamsulosin Adverse Reaction (Intermediate, Verified 05/01/24 10:31) jaundice Do you need a note to return to daycare/school/sports/work: No HPI EP pain on LT ankle HPI Details This note is constructed using voice recognition software. While every effort has been made to ensure accuracy, systems support specialist errors may have been included. The patient is a 68 year old male who presents to the clinic today with intermittent left ankle pain for the last 3 weeks. He notes that he has a history of varicose veins bilaterally, and has had some longstanding it history with intermittent bilateral ankle swelling. He has not had any injury to the area, and has had no previous surgeries to the ankle. He reports that the pain is in the medial malleolus posteriorly, and feels like a strain or burning sensation at times. He denies numbness and tingling, redness or warmth. [facility] Medical History COVID-19 virus infection Ground glass opacity present on imaging of lung Hospital discharge follow-up Elevated LFTs Carcinoid tumor of lung (~2021) Pulmonary nodule 1 cm or greater in diameter Cataract Verruca Obesity with body mass index (BMI) of 30.0 to 39.9 Basal cell carcinoma, arm Schamberg's disease Migraine Peripheral vascular disease Crohn's disease (~1993) Degenerative disc disease, cervical Carpal tunnel syndrome Surgical History History of lobectomy of lung (~2021) History of bronchoscopy (~2021) History of hydrocelectomy (~2018) History of surgery on arm History of mandibular surgery (~1972) History of colonoscopy (~2017) History of cataract surgery (~2017) History of inguinal hernia repair (~2015) Family History Mother Stroke Father Skin cancer (melanoma) Paternal Grandfather Skin cancer (melanoma) Paternal Uncle FHx: cancer of prostate Leukemia Paternal Uncle Cancer Social History Household Members: Significant Other Housing: House Alcohol intake: current Alcohol intake frequency: holidays/special occasions only Alcohol type: beer Comment: discharged home- 1-2 a week 1-2 bottles of beer Patient Tobacco Use Status: Never used Tobacco e-Cigarette/Vaping Use: Never Used Second Hand Smoke Exposure: No service: No Current occupational status: retired Cognitive needs: No Hearing needs: No Vision needs: Yes Review of Systems Const All systems reviewed & are unremarkable except as noted in HPI and below Physical Exam Vital Signs: Last Vital Signs Pulse 99 05/01/24 10:30 BP 140/90 H 05/01/24 10:30 Pulse Ox 99 05/01/24 10:30 Oxygen Delivery Method Room Air 05/01/24 10:30 BMI result Body Mass Index 32.4 Const General: cooperative, healthy appearing, comfortable, no acute distress and alert Orientation/consciousness: patient oriented x3 Limitations: no limitations Resp Effort & Inspection: normal respiratory effort and able to speak in complete sentences Skin General skin exam: no rashes or lesions noted, elasticity normal and turgor normal Neuro General: patient oriented x3 Extrem Other: Varicose veins present bilaterally. Left ankle full range of motion, negative Homans, negative Pugh. Distal neurovascular exam intact. General: Yes full ROM, Yes capillary refill normal and Yes normal exam except as noted Psych Appearance: grossly normal Mental Status: mental status grossly normal Speech and movement: Normal speech and movement present Affect: normal affect Results Reviewed Results Reviewed: XR images contemporaneously read by me with no obvious fracture. Assessment & Plan Assessment & Plan (1) Left ankle pain: Code(s): M25.572 - Pain in left ankle and joints of left foot Qualifiers: Chronicity: acute Qualified Code(s): M25.572 - Pain in left ankle and joints of left foot Plan: X-ray ordered to rule out contributing factors. Likely sprain. Edison wrap applied. Advised rest, ice, compression, elevation. Additionally given patient's varicose veins, advised compression stockings would also be very helpful for him. Advised follow up with PCP with worsening or failure to resolve. Plan See above for full details and plan. Orders: Orders XR ankle LT min 3V Today M25.572 - Pain in left ankle and joints of left foot Coding Level of Care Code Est Pt Level 4 (57004) Diagnoses Acute left ankle pain M25.572 Chronicity: acute
[2024-05-01 10:30] VITALS: BP 140/90; PULSE 99; O2SAT 99; BMI 32.4
== END 2024-05-01 11:28 | disposition home or self-care (01) ==
PROVIDERS: PCP Internal Medicine; Visit Provider Registered Nurse
DX: M25.572 Pain in left ankle and joints of left foot (principal)

== ENCOUNTER → 2024-05-01 09:28 | Outpatient (BNVA) | payer MEDICARE, SELFPAY | PROVIDERS: PCP Internal Medicine ==

== ENCOUNTER 2024-05-01 10:46 | Outpatient (REF) | payer MEDICARE, SELFPAY ==
--- NOTE | ~2024-05-01 | XR_ITS ---
EXAMINATION: XR ANKLE, LEFT CLINICAL INFORMATION: Left ankle pain COMPARISON: None available. TECHNIQUE: AP, lateral, and mortise views of the left ankle. FINDINGS: There is bilateral soft tissue swelling. No fractures are seen. The ankle mortise appears intact. No joint effusion is detected. XR/XR ankle LT min 3V IMPRESSION: Soft tissue swelling without fracture. Electronically signed by: Adiel Beltran MD 05/01/2024 12:08 PM EDT
== END 2024-05-01 10:47 | disposition home or self-care (01) ==
LOC: HO.HMGCX 10:46
PROVIDERS: PCP Internal Medicine; Visit Provider Registered Nurse
DX: M25.572 Pain in left ankle and joints of left foot (principal)
CPT/HCPCS: 73610; 99212

== ENCOUNTER 2024-05-27 09:51 | Outpatient (AMB) | payer MEDICARE, SELFPAY ==
--- NOTE | 2024-05-27 09:53 | MHC.PC.OV ---
Vital Signs 05/27/24 09:54 Height 5 ft 10 in Weight 222 lb BMI 31.9 BP 126/80 Blood Pressure Location Lt brachial Position Sitting Pulse 86 Pulse Source Pulse Oximeter Pulse Oximetry (%) 97 Oxygen Delivery Method Room Air Intake Visit Reasons: Thyroid and carcinoid lung Allergies penicillin V Allergy (Unknown, Verified 05/27/24 09:55) u Penicillins [PENICILLINS] Allergy (Unknown, Verified 05/27/24 09:55) RASH lisinopril Adverse Reaction (Intermediate, Verified 05/27/24 09:55) cough tamsulosin Adverse Reaction (Intermediate, Verified 05/27/24 09:55) jaundice Tobacco use date assessed: 10/16/23 Fall risk assessment: No Falls in past year Last assessed Fall Risk: 05/27/24 Dental Screening Dental Screen Date: 09/28/23 HPI Thyroid and carcinoid lung HPI Details 68-year-old obese male with BPH, lung carcinoid tumor 2021(right upper lobectomy and mediastinal lymphadenectomy 2021 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 Last seen in 01/18/2024. Patient had colon test in 2018 and was advised 5 years. Patient has complained of left ankle pain and an x-ray was done showing without fracture but soft tissue swelling. Urgent Center visit in May 01. 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 Patient has a left lobe with multiple scattered subcentimeter nodules which should be followed and so has advised repeat thyroid ultrasound in July. As for Urology seen in March 13 had cystoscopy done showing minimal medial hypertrophy on alfuzosin. Patient has seen Ophthalmology also and cataracts noted as well as Fuchs corneal dystrophy. Advised cataract surgery 1st before corneal surgery. flu shot taken [facility] Medical History COVID-19 virus infection Ground glass opacity present on imaging of lung Hospital discharge follow-up Elevated LFTs Carcinoid tumor of lung (~2021) Pulmonary nodule 1 cm or greater in diameter Cataract Verruca Obesity with body mass index (BMI) of 30.0 to 39.9 Basal cell carcinoma, arm Schamberg's disease Migraine Peripheral vascular disease Crohn's disease (~1993) Degenerative disc disease, cervical Carpal tunnel syndrome Surgical History History of lobectomy of lung (~2021) History of bronchoscopy (~2021) History of hydrocelectomy (~2018) History of surgery on arm History of mandibular surgery (~1972) History of colonoscopy (~2017) History of cataract surgery (~2017) History of inguinal hernia repair (~2015) Family History Mother Stroke Father Skin cancer (melanoma) Paternal Grandfather Skin cancer (melanoma) Paternal Uncle FHx: cancer of prostate Leukemia Paternal Uncle Cancer Social History Household Members: Significant Other Housing: House Alcohol intake: current Alcohol intake frequency: holidays/special occasions only Alcohol type: beer Comment: discharged home- 1-2 a week 1-2 bottles of beer Patient Tobacco Use Status: Never used Tobacco e-Cigarette/Vaping Use: Never Used Second Hand Smoke Exposure: No service: No Current occupational status: retired Cognitive needs: No Hearing needs: No Vision needs: Yes Questionnaire Thrive Questionnaire Date Thrive assessed: 09/28/23 AUDIT C Alcohol Use Questionnaire (AUDIT-C) 1. How often do you have a drink containing alcohol?: 2-3 times a week 2. How many drinks containing alcohol do you have on a typical day when you are drinking?: 1 or 2 3. How often do you have six or more drinks on one occasion?: Never Total Score: 3 Score Reviewed/Action Taken: Yes CAPRI-7 AMB Questionnaire CAPRI-7 Date CAPRI - 7 assessed: 09/28/23 Source: Developed by Drs. Benito Colbert, Serena Buckley, Rito Padgett and colleagues, with an educational chu from [employer]. Physical exam (Primary Care) Vital Signs: Last Vital Signs Pulse 86 05/27/24 09:54 BP 126/80 05/27/24 09:54 Pulse Ox 97 05/27/24 09:54 Oxygen Delivery Method Room Air 05/27/24 09:54 BMI result Body Mass Index 31.9 Tobacco/Smoking Status: Tobacco use Status Tobacco use date assessed 10/16/23 05/27/24 09:58 Patient Tobacco Use Status Never used Tobacco 05/27/24 09:58 e-Cigarette/Vaping Use Never Used 05/27/24 09:58 Thrive Assessment: Date of Thrive Assessment Date Thrive assessed 09/28/23 05/27/24 09:58 Const General: alert; No acute distress Eyes Conjunctivae: conjunctivae normal Resp Auscultation: clear to auscultation bilaterally Cardio Rate: regular rate Rhythm: regular rhythm GI Inspection: Yes normal to inspection Extrem General: Yes normal to inspection and No edema Coding Level of Care Code Est Pt Level 4 (07965) Diagnoses Hurthle cell carcinoma of thyroid C73 Benign prostatic hyperplasia with urinary frequency N40.1; R35.0 Lower urinary tract symptom presence: symptoms present Lower urinary tract symptom detail: urinary frequency Multinodular goiter E04.2 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.513 Laterality: bilateral Senile cataract of left eye, unspecified age-related cataract type H25.9 Cataract type: age-related Age-related cataract type: unspecified Laterality: left Acute left ankle pain M25.572 Chronicity: acute Assessment & Plan Assessment & Plan (1) Hurthle cell carcinoma of thyroid: Comment: Thyroid isthmusectomy Dr. Covarrubias January 2024 Code(s): C73 - Malignant neoplasm of thyroid gland Category: Medical Plan: Status post isthmusectomy January 2024 and continue to follow-up. (2) BPH (benign prostatic hyperplasia): Code(s): N40.0 - Benign prostatic hyperplasia without lower urinary tract symptoms Category: Medical Qualifiers: Lower urinary tract symptom presence: symptoms present Lower urinary tract symptom detail: urinary frequency Qualified Code(s): N40.1 - Benign prostatic hyperplasia with lower urinary tract symptoms; R35.0 - Frequency of micturition Plan: Patient follows up with urology and cystoscopy done. Continue to monitor has been placed on alfuzosin (3) Multinodular goiter: Comment: Seeing endocrinology and advised to get ultrasound in 07/2024 Code(s): E04.2 - Nontoxic multinodular goiter Category: Medical Plan: Patient has been follow-up with endocrinology and planned ultrasound in 08/04/2024 (4) Fuchs' corneal dystrophy: Code(s): H18.519 - Endothelial corneal dystrophy, unspecified eye Category: Medical Qualifiers: Laterality: bilateral Qualified Code(s): H18.513 - Endothelial corneal dystrophy, bilateral Plan: seeing ophthalmology (5) Cataract: Comment: left Code(s): H26.9 - Unspecified cataract Category: Medical Qualifiers: Cataract type: age-related Age-related cataract type: unspecified Laterality: left Qualified Code(s): H25.9 - Unspecified age-related cataract Plan: seeing ophthalmology and planned surgery (6) Left ankle pain: Code(s): M25.572 - Pain in left ankle and joints of left foot Category: Medical Qualifiers: Chronicity: acute Qualified Code(s): M25.572 - Pain in left ankle and joints of left foot Plan: resolving - if not better - will need referral to ortho Orders: Orders Complete Blood Count Auto Diff 3 Months R35.0 - Frequency of micturition Thyroid Stimulating Hormone 3 Months R35.0 - Frequency of micturition Prostate Specific Antigen Scr 3 Months R35.0 - Frequency of micturition Comprehensive Met. Panel 3 Months R35.0 - Frequency of micturition Lipid Panel 3 Months E78.00 - Pure hypercholesterolemia, unspecified, R35.0 - Frequency of micturition Free T4 (Free Thyroxine) 3 Months R35.0 - Frequency of micturition Vitamin B12 and Folate 3 Months R35.0 - Frequency of micturition
[2024-05-27 09:54] VITALS: BP 126/80; PULSE 86; O2SAT 97; BMI 31.9
== END 2024-05-27 10:24 | disposition home or self-care (01) ==
PROVIDERS: PCP Internal Medicine; Visit Provider Internal Medicine
DX: C73 Malignant neoplasm of thyroid gland (principal); N40.1 Benign prostatic hyperplasia with lower urinary tract symptoms; R35.0 Frequency of micturition; E04.2 Nontoxic multinodular goiter; H18.513 Endothelial corneal dystrophy, bilateral; H25.9 Unspecified age-related cataract; M25.572 Pain in left ankle and joints of left foot

== ENCOUNTER → 2024-05-27 09:51 | Outpatient (BNVA) | payer MEDICARE, SELFPAY | PROVIDERS: PCP Internal Medicine; Visit Provider Internal Medicine | DX: C73 Malignant neoplasm of thyroid gland (principal); N40.1 Benign prostatic hyperplasia with lower urinary tract symptoms; R35.0 Frequency of micturition; E04.2 Nontoxic multinodular goiter; H18.513 Endothelial corneal dystrophy, bilateral; H25.9 Unspecified age-related cataract; M25.572 Pain in left ankle and joints of left foot | CPT/HCPCS: 99212 ==

== ENCOUNTER 2024-06-16 08:54 | Outpatient (AMB) | payer MEDICARE, SELFPAY ==
[2024-06-16 09:49] VITALS: BP 140/98; PULSE 79; O2SAT 98; BMI 33.0
--- NOTE | 2024-06-16 09:49 | MHC.OFFWIV ---
Intake Vital Signs 06/16/24 09:49 Height 5 ft 10 in Weight 230 lb BMI 33.0 BP 140/98 H Blood Pressure Location Lt brachial Position Sitting Pulse 79 Pulse Source Pulse Oximeter Pulse Oximetry (%) 98 Oxygen Delivery Method Room Air Intake Visit Reasons: EP-rt leg pain Intake Note: Patient here for right leg pain ( veins) that started last week, pain comes and goes. Patient Tobacco Use Status: Never used Tobacco Allergies penicillin V Allergy (Unknown, Verified 06/16/24 09:56) u Penicillins [PENICILLINS] Allergy (Unknown, Verified 06/16/24 09:56) RASH lisinopril Adverse Reaction (Intermediate, Verified 06/16/24 09:56) cough tamsulosin Adverse Reaction (Intermediate, Verified 06/16/24 09:56) jaundice Do you need a note to return to daycare/school/sports/work: No HPI EP-rt leg pain HPI Details This note is constructed using voice recognition software. While every effort has been made to ensure accuracy, technical support 1 software engineer errors may have been included. The patient is a 68 year old male who presents to the clinic today with right leg pain for the past week. He reports an extensive history of varicose veins, and has been advised by a vascular specialist approximately 10 years ago to wear full length compression socks which he does not. He reports that recently he felt that the veins in his right leg were slightly more painful, and he did try wearing the compression socks, which seemed to help the pain a bit. He denies redness, warmth to the area. He has not tried anything else to intervene for the pain. He has had no injury to the area or previous surgery to the area. [facility] Medical History COVID-19 virus infection Ground glass opacity present on imaging of lung Hospital discharge follow-up Elevated LFTs Carcinoid tumor of lung (~2021) Pulmonary nodule 1 cm or greater in diameter Cataract Verruca Obesity with body mass index (BMI) of 30.0 to 39.9 Basal cell carcinoma, arm Schamberg's disease Migraine Peripheral vascular disease Crohn's disease (~1993) Degenerative disc disease, cervical Carpal tunnel syndrome Surgical History History of lobectomy of lung (~2021) History of bronchoscopy (~2021) History of hydrocelectomy (~2018) History of surgery on arm History of mandibular surgery (~1972) History of colonoscopy (~2017) History of cataract surgery (~2017) History of inguinal hernia repair (~2015) Family History Mother Stroke Father Skin cancer (melanoma) Paternal Grandfather Skin cancer (melanoma) Paternal Uncle FHx: cancer of prostate Leukemia Paternal Uncle Cancer Social History Household Members: Significant Other Housing: House Alcohol intake: current Alcohol intake frequency: holidays/special occasions only Alcohol type: beer Comment: discharged home- 1-2 a week 1-2 bottles of beer Patient Tobacco Use Status: Never used Tobacco e-Cigarette/Vaping Use: Never Used Second Hand Smoke Exposure: No service: No Current occupational status: retired Cognitive needs: No Hearing needs: No Vision needs: Yes Review of Systems Const All systems reviewed & are unremarkable except as noted in HPI and below Physical Exam Vital Signs: Last Vital Signs Pulse 79 06/16/24 09:49 BP 140/98 H 06/16/24 09:49 Pulse Ox 98 06/16/24 09:49 Oxygen Delivery Method Room Air 06/16/24 09:49 BMI result Body Mass Index 33.0 Const General: cooperative, healthy appearing, comfortable, no acute distress and well developed Orientation/consciousness: patient oriented x3 Limitations: no limitations Resp Effort & Inspection: normal respiratory effort and able to speak in complete sentences Skin General skin exam: no rashes or lesions noted Neuro General: patient oriented x3 Extrem Other: Varicose veins present to bilateral legs, negative Homans. No erythema, warmth. Assessment & Plan Assessment & Plan (1) Varicose veins of bilateral lower extremities with pain: Code(s): I83.813 - Varicose veins of bilateral lower extremities with pain Plan: Advised use of compression socks as he was advised by vascular over 10 years ago, as this may help reduce his symptoms. Advised him to wear them routinely for at least 3 months, and then requests referral to vascular. He reports that he with his insurance he does not need referrals, so I advised him to contact vascular directly for an appointment. No concerns for DVT, imaging not necessary at this time, however reviewed with patient that he may benefit from vascular as he may need additional intervention for symptom management. Plan See above for full details and plan. Coding Level of Care Code Est Pt Level 3 (43256) Diagnoses Varicose veins of bilateral lower extremities with pain I83.813
== END 2024-06-16 10:20 | disposition home or self-care (01) ==
PROVIDERS: PCP Internal Medicine; Visit Provider Registered Nurse
DX: I83.813 Varicose veins of bilateral lower extremities with pain (principal)

== ENCOUNTER → 2024-06-16 08:54 | Outpatient (BNVA) | payer MEDICARE, SELFPAY | PROVIDERS: PCP Internal Medicine; Visit Provider Registered Nurse | DX: I83.813 Varicose veins of bilateral lower extremities with pain (principal) | CPT/HCPCS: 99212 ==

== ENCOUNTER 2024-08-27 08:38 | Outpatient (REF) | payer MEDICARE, SELFPAY ==
--- OUTSIDE RECORDS SUMMARY | 2024-08-27 09:30 | XMS_ITS | Patient Health Record ---
Author Organization [facility] Address [address] [place] [address] Care Team Providers Care Welding Setter Name Role Phone Viri Malhotra MD Primary Care Provider Benito Meeks [phone] ALLERGIES Allergen (clinical drug ingredient) Drug/Non Drug Allergy documented on EMR Reaction Allergy Type Onset Date Status lisinopril Lisinopril Unknown Drug Allergy Activ e Penicillin Unknown Drug Allergy Active REASON FOR REFERRAL No Information MEDICATIONS Medication SIG (Take, Route, Frequency, Duration) Notes Start Date End Date Status Cholecalciferol 25 MCG (1000 UT) 1 capsule Orally Once a day for 30 day(s) Active Cyanocobalamin 1000 MCG 1 tablet Orally Once a day for 30 day(s) Active Omeprazole 20 MG TAKE 1 TABLET BY MOUTH EVERY DAY AT 6:30 AM Oral for 30 Not-Taking Esteban 128 2 % 1 drop into affected eye Ophthalmic every 4 hrs Active IMMUNIZATIONS Vaccine Route Administration Date Status Comme nts Influenza Unknown 05/16/2021 Administered SOCIAL HISTORY Sex Assigned At : Social History Observation Description Sex Assigned At Unknown PROBLEMS Problem Type ICD Code Onset Dates Problem Status W/U Status Risk SNOMED Code Notes Problem Encounter for screening for malignant neoplasm of colon (Z12.11) Active confirmed 577358504 Problem Jaundice (R17) Active confirmed Jaundic e (47998520) Problem 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) Active confirmed [id number] Problem Elevated liver function tests (R94.5) Active confirmed Elevated liver enzymes level (254805637) PLAN OF TREATMENT Pending Test Test Name Order Date LIVER PROFILE 01/17/2022 LIVER PROFILE 03/21/2022 Liver Panel 07/14/2022 Future Test Test Name Order Date COLONOSCOPY 10/16/2012 COLONOSCOPY 10/26/2017 Insurance Providers Payer Name Payer Address Payer Phone Subscriber Number Group Number Insured Name Patient Relationship to Insured Coverage Start Date Coverage End Date [facility] [employer] CLAIM[employer] [address] [place] [address] [id number] MIGUELITO ABEL Self - patient is the insured MEDICAL (GENERAL) HISTORY Medical History History ICD Code Ulcerative proctitis-diagnos ed in 1993- colonoscopy was in 03/2013-minimal distal proctitis-all biopsies negative for colitis/dysplasia-mild diverticulosis was noted as well. Denies ME,DM,CVA,Lung disease,renal dise ase RUL carcinoid tumor with surgery as belo w Negative colonoscopy with bi opsies in 03/2018--no active proctocolitis--biopsies negative for dysplasia Acute hepatitis with jaundic e in early January of 2022 of unclear etiology. His workup with multiple imaging studies, viral serologies, and autoimmune studies was negative. The jaundice and hepatitis completely resolved spontaneously. He had been on Tamsulosin for about one month and omeprazole for several days before the discovery of his jaundice and hepatitis and both of those were stopped. He did have a borderline positive NANCY of 1:40 in a homogeneous pattern, but the other autoimmune studies were negative. Surgical History Surgery Date(Month/Year) Broken jaw Right inguinal and umbilical hernias rep aired--Dr. Patel at [facility] Basal cell cancer on arm RUL resection for the carcinoid tumor Dr Kaitlynn Moore Right testicle surgery with Dr. Alissa mcdonald
--- OUTSIDE RECORDS SUMMARY | 2024-08-27 09:30 | XMS_ITS | Continuity of Care Document ---
Author Organization [facility] Address [address] [place] [address] [address] [place] [address] Phone Care Team Providers Care Public Health Clinical Nurse Specialist Name Role Phone Hernandez VANESSA, THOMAS, Benito MYERS Unavailable U navailable Allergies, Adverse Reactions, Alerts Substance Reaction Status Criticality tamsulosin Active No Information PENICILLIN Active No Information lisinopril Active No Information Procedures Procedure Date Offic/outpt E&m Estab 5 Min Trial- Telem edicine CT & [place] Office/Oupt E&M New Pt 30 Mins- CT & [place] Surgical Stockings Mediven Comfort Thigh 20-30 & 30-40 Duplex Scan-extrem Veins; Comp- CT & [place] Advance Directives Directive Yes / No Effective Date File Name No Information Encounters Encounter Description Practice Location Reason(s) For Visit Diagnoses Date Provider Providers Copied on Encounter [facility], [address] [place] [address] Dr [address], [id number], tel:[phone] [facility] No Information 5 Hernandez VANESSA, LOUIS GUZMAN. [address] [facility] [address], [place], [place], [id number] , [place]. tel:[phone] Offic/outpt E&m Estab 5 Min Trial- Telemedicine CT & [place] [facility], [address] [place] [address] Dr [address], [id number], tel:[phone] [facility] Chronic venous hypertension (idiopathic) with other complications of bilateral lower extremity 5 Hernandez VANESSA RVT, RPVI Robert. [address] [place] [address], [place], [place], [id number] , [place]. tel:[phone] Referring Provider: Viri Malhotra MD, [address] [place] [address] [address] [place], [address]. tel:[phone] Office/Oupt E&M New Pt 30 Mins- CT & [place] [facility], [address] [place] [address] Dr [address]Suite [place], [id number], [place] tel:[phone] [facility] Varicose veins of bilateral lower extremities with other complications Pain in right lower legPain in left lower legPain in right legPhlebitis and thrombophlebi tis of superficial vessels of right lower extremityPain in left legLocalized edema 4 Hernandez VANESSA RVT, RPVI Robert. [address] [place] [address], [place], [place], [id number] , [place]. tel:[phone] [facility], [address] [place] [address] [address], [id number], [place] tel:[phone] [facility] - [facility] Chronic venous hypertension (idiopathic) with other complications of bilateral lower extremity 4 Hernandez VANESSA RVT, RPVI Robert. [address] [place] [address], [place], [place], [id number] , [place]. tel:[phone] Referring Provider: Viri Malhotra MD, [address] [place] [address] [address] [facility] [place], [address]. tel:[phone] Family History Family Member Type Diagnosis Age At Onset No Information Payers Payer name Insurance type Covered alliance party ID Authorrayoa timary(s) [facility] Medicare Advantage [id number] Social History Type Description Quantity Date Captured Comments Sex Male Smoking Status No Information Chief Complaint And Reason For Visit No Information Reason For Referral Reason For Referral No Information Plan Of Treatment Date Type Action Status Goal Diet education completed Referral Ordered: Weight management: Referral to physician timeframe: 3 Months (related to Body mass index (BMI) 33.0-33.9, adult) ordered Appointment Jovanny Brush BOOKED Appointment Jovanny Brush BOOKED Appointment Jovanny Brush BOOKED Appointment Jovanny Brush BOOKED Appointment Jovanny Brush BOOKED Appointment Jovanny Brush BOOKED History Of Present Illness Encounter Date Complaint History Of Prese nt Illness No Information Functional Status Date Functional Assessmen t No Information Instructions Date Instruction Additional Infor kj Patient education booklet given Related to Chronic venous hypertension (idiopathic) with other complications of bilateral lower extremity Pre and post instruc tions reviewed and provided Related to Chronic venous hypertension (idiopathic) with other complications of bilateral lower extremity Diet education Related to Body mass index (BMI) 33.0-33.9, adult Giving Encouragement to exercise Related to Body mass index (BMI) 33.0-33.9, adult Lifestyle education Related to B abdirashid mass index (BMI) 33.0-33.9, adult Patient education booklet given Related to Varicose veins of bilateral lower extremities with other complications Pre and post instruc tions reviewed and provided Related to Varicose veins of bilateral lower extremities with other complications Assessments Type Assessment Date No Information Patient Care Teams Name Effective Dates (start - stop) Status Members No Information
--- OUTSIDE RECORDS SUMMARY | 2024-08-27 09:30 | XMS_ITS | Clinical Summary ---
Author Organization [facility] Address [address] [place] [address] Phone Care Team Providers Care Button Cutting Machine Operator Name Role Phone Viri Malhotra MD Primary Care Provider [phone] Allergies Active Allergy Reactions Criticality Noted Date Comments Lisinopril Cough Medium 12/27/2021 Penicillins Rash 12/27/2021 Tamsulosin Medium 2023 Jaundice Medications docusate sodium (COLACE) 100 mg capsule Take 1 capsule (100 mg total) by mouth 2 (two) times a day. Active cholecalciferol (VITAMIN D-3) 25 mcg (1,000 unit) tablet Take by mouth. 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 This was done on 12/13/2021. Since then has had serial CT scans which have showed no evidence of recurrence or new disease. His most recent CT scan compared with previous from outside hospital was done on 09/06/2023. I explained his imaging testing to him in detail which she seemed understand. As described in the HPI. I went over our surveillance program for carcinoid tumors which is a CAT scan every 6 months for the first 2 years postoperatively followed by yearly for 8 years after that at least due to its overall slow growth. All questions were answered. 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 Patient was educated he will continue to follow with the thoracic surgical department at [facility] every 6 months following his surgery with a chest CT surveillance scan for the first 2 years following his surgery. At the end of [address] surveillance will be increased to every 12 months for 3 years thereafter for a total surveillance time of 5 years. Due to patient's staging he will also be referred to medical oncology at [facility] for discussion of any further treatment options. Surgical History Surgery Date Site/Laterality Comments OTHER SURGICAL HISTORY 12/13/2021 Right PROCEDURE: DC THORACOSCOPY W/LOBECTOMY SINGLE LOBE; COMMENT: RUL Lobectomy, mediastinal lymphadenectomy. Carcinoid tumor, 1+ lymph node. OTHER SURGICAL HISTORY 2021 PROCEDURE: PULMONOLOGY BRONCHOSCOPY OTHER SURGICAL HISTORY 2015 PROCEDURE: LAPAROSCOPY, INGUINAL HERNIA REPAIR CATARACT EXTRACTION 2017 PROCEDURE: HISTORICAL CATARACT REMOVAL OTHER SURGICAL HISTORY 2018 PROCEDURE: DC EXC HYDROCELE SPRMATIC CORD UNI SPX OTHER SURGICAL HISTORY 1972 PROCEDURE: MANDIBULAR DENTURE PROSTH OTHER SURGICAL HISTORY 2017 PROCEDURE: COLONOSCOPY, SURGICAL Medical History Medical History Date Comments Basal cell carcinoma DX:Basal ce ll carcinoma; COMMENT: arm Carpal tunnel syndrome DX:Carpal tunnel syndrome Crohn's disease (CMS/HCC) 1993 DX:Dye Colorist Dyer hn's disease (HCC) Peripheral vascular disease (CMS/HCC) DX:Peripheral vascular disease (HCC) Schamberg's disease DX:Schamberg 's disease Degenerative disc disease, cervical DX:Degenerative disc disease, cervical Pulmonary nodule DX:Pulmonary no dule; COMMENT: right upper lobe Carcinoid tumor of lung (CMS/HCC) 2021 DX:Carcinoid tumor of lung Cataract DX:Cataract Covid-19 DX:COVID-19 Elevated LFTs DX:Elevated LFTs Ground glass opacity present on imaging of lung DX:Ground glass opacity pres ent on imaging of lung Migraine DX:Migraine Obesity with body mass index (BMI) of 30.0 to 39.9 DX:Obesity with body mass in dex (BMI) of 30.0 to 39.9 Other seborrheic keratosis DX:Ot her seborrheic keratosis Osteoporosis 09/20/2023 DX:Osteoporosis Family History Medical History Relation Name Comments Melanoma Father Stroke Mother Melanoma Paternal Grandfather Other cancer Uncle 1 Paternal Leukemia Uncle 2 Prostate cancer Uncle 2 Paternal Relation Name Status Comments Father Mother Paternal Grandfather Sister 2 Alive Uncle 1 Alive Uncle 2 Alive Social History Tobacco Use Types Packs/Day Years Used Date Smoking Tobacco: Never Smokeless Tobacco: Never Alcohol Use Standard Drinks/Week Comments Yes 0 (1 standard drink = 0.6 oz pur e alcohol) Sex and Gender Information Value Date Recorded Sex Assigned at Not on file Legal Sex Male 11:09 AM EST Gender Identity Not on file Sexual Orientation Not on file Obstetrics History Last Filed Vital Signs Vital Sign Reading Time Taken Comments Blood Pressure 178/92 09/20/2023 10:02 AM EST Si tting R Arm Pulse 78 09/20/2023 10:02 AM EST Temperature - - Respiratory Rate - - Oxygen Saturation - - Inhaled Oxygen Concentration - - Weight 101 kg (222 lb) 09/20/2023 10:02 AM EST Height 177.8 cm (5' 10 ) 09/20/2023 10:02 AM EST Body Mass Index 31.85 09/20/2023 10:02 AM EST Plan of Treatment Upcoming Encounters Date Type Department Care Team (Late st Contact Info) Description 09/15/2024 5:15 PM EST Hospital Encounter [facility] CT Scan [address] [place] [id number] 2024 11:00 AM EDT Office Visit Thoracic Surgery - [place] [address] [id number] Rashad Best PA [address] [address] Health Maintenance Due Date Last Done Comments COVID-19 Vaccine (#1) 1960 DTaP,Tdap,and Td Vaccines (1 - Tdap) 1972 Pneumococcal Vaccine: 50+ Ye ars (1 of 2 - PCV) 1972 Zoster Vaccines (1 of 2) 1972 RSV Immunization Patients 60 + Years Old (1 - Risk 60-74 years 1-dose series) 2013 Cholesterol Screening (Lipid Panel) 06/13/2022 Colorectal Cancer Screening: Colonoscopy 06/13/2022 Depression Screening 06/13/2022 Falls Risk Assessment 06/13/2022 Hepatitis C Screening 06/13/2022 Medicare Annual Wellness Visit 06/13/2022 Social Influencers of Health Screening 06/13/2022 Influenza Vaccine (#1) 2024 HIB Vaccines Aged Out No longer eligi ble based on patient's age to complete this topic HPV Vaccines Aged Out No longer eligi ble based on patient's age to complete this topic Hepatitis A Vaccines Aged Out No long er eligible based on patient's age to complete this topic Hepatitis B Vaccines Aged Out No long er eligible based on patient's age to complete this topic IPV Vaccines Aged Out No longer eligi ble based on patient's age to complete this topic MMR Vaccines Aged Out No longer eligi ble based on patient's age to complete this topic Meningococcal ACWY Vaccine Aged Out N o longer eligible based on patient's age to complete this topic Meningococcal B Vacine Aged Out No lo nger eligible based on patient's age to complete this topic RSV Immunization Patients Un charlene 20 months Aged Out No longer eligible b ased on patient's age to complete this topic Varicella Vaccines Aged Out No longer eligible based on patient's age to complete this topic Insurance [facility]) MEDICARE ADVANTAGE Advance Directives Documents on File Type Date Recorded Patient [place] Expl anation Health Care Decision (hx) 12/05/2021 JEAN-PIERRE GALICIA DIRECTIVE Care Teams Button Cutting Machine Operator Relationship Specialty Start Date End Date Viri Malhotra MD [address] [place] [address] [address] [facility] [place] [address] PCP - General Internal Medicine 12/16/21
[2024-08-27 10:45] LABS: MANUAL DIFF FLAG NO
[2024-08-27 10:51] LABS: Basophils Percent Auto 0.8 % (0-2); Eosinophils Absolute Auto 0.2 X10*3/uL (0.0-0.4); Eosinophils Percent Auto 3.6 % (0-4); Hematocrit 44.5 % (42.0-52.0); Imm Gran Abs Auto 0.02 X10*3/uL (0.00-0.03); Imm Gran Pct Auto 0.4 % (0.0-0.4); Lymphocytes Absolute Auto 1.5 X10*3/uL (1.2-4.9); Lymphocytes Percent Auto 27.4 % (20-40); Mean Corpuscular HGB Conc 33.7 g/dl (31.0-36.0); Mean Corpuscular Hemoglobin 31.2 pg (27.0-33.0); Mean Corpuscular Volume 92.5 fL (80.0-98.0); Mean Platelet Volume 9.7 fL (9.4-12.4); Monocytes Absolute Auto 0.4 X10*3/uL (0.1-1.2); Monocytes Percent Auto 7.5 % (2-11); Neutrophils Absolute Auto 3.2 x10*3/uL (2.0-8.3); Neutrophils Percent Auto 60.3 % (45-73); Platelet Count 257 X10*3/uL (160-400); Red Blood Count 4.81 X10*6/uL (4.60-5.80); Red Cell Distribution Width 12.3 % (11.0-16.0); White Blood Count 5.3 X10*3/uL (4.8-10.8)
[2024-08-27 11:37] LABS: Alanine Aminotransferase 22 U/L (0-40); Albumin Level 4.4 g/dL (3.5-5.0); Alkaline Phosphatase 66 U/L (39-117); Anion Gap 10 (12-20); Aspartate Amino Transferase 23 U/L (5-37); Bilirubin Total 0.7 mg/dL (0.0-1.0); Blood Urea Nitrogen 16 mg/dL (9-16); Calcium 9.1 mg/dL (8.4-10.2); Carbon Dioxide 28 mmol/L (22-29); Chloride 106 mmol/L (96-108); Cholesterol 160 mg/dL (<200); Estimated Glomerular Filt Rate > 60; Free T4 (Free Thyroxine) 0.94 ng/dL (0.71-1.85); Glucose Random 86 mg/dL (60-115); HDL Cholesterol 57 mg/dL (>40); LDL Cholesterol Calculated 94 mg/dL (<100); Potassium 4.1 mmol/L (3.3-5.1); Sodium 140 mmol/L (135-145); Thyroid Stimulating Hormone 5.02 uIU/mL (0.32-4.0); Total Protein 7.7 g/dL (6.5-8.0); Triglycerides 47 mg/dL (<150)
[2024-08-27 11:55] LABS: Prostate Specific Antigen Scr 2.22 ng/mL (<0.05-4.0); Vitamin B12 481 pg/mL (200-900)
== END 2024-08-27 08:39 | disposition home or self-care (01) ==
LOC: HO.HMGCLDS 08:38
PROVIDERS: PCP Internal Medicine; Visit Provider Internal Medicine
DX: R35.0 Frequency of micturition (principal); E78.00 Pure hypercholesterolemia, unspecified; Z12.5 Encounter for screening for malignant neoplasm of prostate
CPT/HCPCS: 36415; 80053; 80061; 82607; 82746; 84153; 84439; 84443; 85025

== ENCOUNTER → 2024-09-04 15:26 | Outpatient (BNVA) | payer MEDICARE, SELFPAY | PROVIDERS: PCP Internal Medicine; Visit Provider Internal Medicine | DX: R79.89 Other specified abnormal findings of blood chemistry (principal); E04.2 Nontoxic multinodular goiter; N40.1 Benign prostatic hyperplasia with lower urinary tract symptoms; R35.0 Frequency of micturition | CPT/HCPCS: 99212 ==

== ENCOUNTER → 2024-09-04 15:26 | Outpatient (AMB) | payer MEDICARE, SELFPAY ==
--- NOTE | 2024-09-04 15:34 | A.OFFPC_ITS ---
Vital Signs 09/04/24 15:35 Height 5 ft 10 in Weight 228 lb 2 oz BMI 32.7 BP 116/80 Blood Pressure Location Lt brachial Position Sitting Pulse 75 Pulse Source Pulse Oximeter Pulse Oximetry (%) 97 Oxygen Delivery Method Room Air Intake Visit Reasons: MultinodularThyroidCataract Display Card Writer Required: No Accompanied by: Self / Same As Patient Allergies penicillin V Allergy (Unknown, Verified 09/04/24 15:35) u Penicillins [PENICILLINS] Allergy (Unknown, Verified 09/04/24 15:35) RASH lisinopril Adverse Reaction (Intermediate, Verified 09/04/24 15:35) cough tamsulosin Adverse Reaction (Intermediate, Verified 09/04/24 15:35) jaundice Tobacco use date assessed: 09/04/24 Fall risk assessment: 1 Fall in past year Last assessed Fall Risk: 09/04/24 Dental Screening Dental Screen Date: 09/04/24 Did you have a dental visit in the last 12 months?: Yes Did you have a dental problem in the last 6 months where you did not have access to dental care?: No Was dental information given to patient?: Patient has dentist HPI MultinodularThyroidCataract HPI0 Details [facility] US done last month 07/[address] Dockery.varicose veins had radiofrequency ablation had R leg done and next week will have don e. The patient is a 68-year-old male presenting for follow-up of multiple chronic conditions. He has a history of Benign Prostatic Hyperplasia managed with alfazosin, with an upcoming appointment with his urologist. He underwent radiofrequency ablation of varicose veins from the left leg saphenous vein and reports improvement in symptoms, previously experiencing leg swelling and pain. The patient plans to have the right leg treated next. Recently, a thyroid test revealed a mildly elevated TSH level of 5.02, leading to a recommendation for retesting within 2-3 months to monitor for potential h ypothyroidism. 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 Additional diagnoses include a history of carcinoid tumor in the lung, for which he underwent a lobectomy. Routine surveillance through CT scanning has not indicated recurrence. The patient is monitored for cataracts with an upcoming evaluation scheduled for February. He observes dietary sensitivities, including a discomfort with spicy foods possibly related to gastrointestinal reflux. Previous laboratory work on August 27 showed all levels within normal limits except the noted TSH elevation. His history includes a normal colonoscopy in 2017, with the next follow-up due in 2027. He anticipates further thyroid evaluation dependent on upcoming blood test results and is compliant with ongoing monitoring of his BPH and other health conditions. [facility] Medical History (Updated 09/04/24 @ 15:40 by Viri Malhotra MD) Thyroid mass COVID-19 virus infection Ground glass opacity present on imaging of lung Hospital discharge follow-up Elevated LFTs Carcinoid tumor of lung (~2021) Pulmonary nodule 1 cm or greater in diameter Cataract Verruca Obesity with body mass index (BMI) of 30.0 to 39.9 Basal cell carcinoma, arm Schamberg's disease Migraine Peripheral vascular disease Crohn's disease (~1993) Degenerative disc disease, cervical Carpal tunnel syndrome Surgical History History of lobectomy of lung (~2021) History of bronchoscopy (~2021) History of hydrocelectomy (~2018) History of surgery on arm History of mandibular surgery (~1972) History of colonoscopy (~2017) History of cataract surgery (~2017) History of inguinal hernia repair (~2015) Family History Mother Stroke Father Skin cancer (melanoma) Paternal Grandfather Skin cancer (melanoma) Paternal Uncle FHx: cancer of prostate Leukemia Paternal Uncle Cancer Social History Household Members: Significant Other Housing: House Alcohol intake: current Alcohol intake frequency: holidays/special occasions only Alcohol type: beer Comment: discharged home- 1-2 a week 1-2 bottles of beer Patient Tobacco Use Status: Never used Tobacco e-Cigarette/Vaping Use: Never Used Second Hand Smoke Exposure: No service: No Current occupational status: retired Cognitive needs: No Hearing needs: No Vision needs: Yes Questionnaire PHQ-9 Over the last 2 weeks, how often have you been bothered by any of the following problems? 1. Little interest or pleasure in doing things: not at all 2. Feeling down, depressed, or hopeless: not at all 3. Trouble falling or staying asleep, or sleeping too much: not at all 4. Feeling tired or having little energy: not at all 5. Poor appetite or overeating: not at all 6. Feeling bad about yourself - or that you are a failure or have let yourself or your family down: not at all 7. Trouble concentrating on things, such as reading the newspaper or watching television: not at all 8. Moving or speaking so slowly that other people could have noticed. Or the opposite - being so fidgety or restless that you have been moving around a lot more than usual: not at all 9. Thoughts that you would be better off or of hurting yourself in some way: not at all Total score: 0 Depression Screening Interpretation: Negative Depression Screening Done: Yes Source: Developed by Drs. Benito Colbert, Serena Buckley, Rito Padgett and colleagues, with an educational chu from [employer]. Thrive Questionnaire Date Thrive assessed: 09/04/24 I am a: Patient What is your living situation today?: I have a steady place to live Within the past 12 months, did the food you bought not last and you didn't have the money to get more?: Never true Within the past 12 months, did you worry whether your food would run out before you got money to buy more?: Never true Do you have trouble paying for medicines?: No Do you have trouble getting transportation to medical appointments?: No Do you have trouble paying your heating and electricity bill?: No Do you have trouble taking care of your child, family member or friend?: No Do you have trouble with day-to-day activities such as bathing, preparing meals, shopping, managing finances, etc.?: No Are you currently unemployed and looking for a job?: No Are you interested in more education?: No Please select the resources that you would like help with: None Currently or been in a relationship where the following occur: No concerns reported THRIVE Score: 0 AUDIT C Alcohol Use Questionnaire (AUDIT-C) 1. How often do you have a drink containing alcohol?: 2-3 times a week 2. How many drinks containing alcohol do you have on a typical day when you are drinking?: 1 or 2 3. How often do you have six or more drinks on one occasion?: Never Total Score: 3 Score Reviewed/Action Taken: Yes CAPRI-7 AMB Questionnaire CAPRI-7 Date CAPRI - 7 assessed: 09/04/24 Feeling nervous, anxious, or on edge: 0 = Not at all Not being able to stop or control worryin = Not at all Worrying too much about different things: 0 = Not at all Trouble relaxin = Not at all Being so restless that it is hard to sit still: 0 = Not at all Becoming easily annoyed or irritable: 0 = Not at all Feeling afraid as if something awful might happen: 0 = Not at all Total CAPRI-7 score (0-4 normal; 5-9 mild; 10-14 moderate; 15-21 severe): 0 Source: Developed by Drs. Benito Colbert, Serena Buckley, Rito Padgett and colleagues, with an educational chu from [employer]. Physical exam (Primary Care) Vital Signs: Oxygen Delivery Method Room Air 09/04/24 15:35 BMI result Body Mass Index 32.7 Tobacco/Smoking Status: Tobacco use Status Tobacco use date assessed 09/04/24 09/04/24 15:36 Patient Tobacco Use Status Never used Tobacco 09/04/24 15:36 e-Cigarette/Vaping Use Never Used 09/04/24 15:36 PHQ-9: PHQ-9 Score PHQ-9: Total score 0 09/04/24 15:36 Depression Screening Interpretation: Negative Thrive Assessment: Date of Thrive Assessment Date Thrive assessed 09/04/24 09/04/24 15:36 Currently or been in a relationship where the following occur: No concerns reported Const General: alert; No acute distress Eyes Conjunctivae: conjunctivae normal Resp Auscultation: clear to auscultation bilaterally Cardio Rate: regular rate Rhythm: regular rhythm GI Inspection: Yes normal to inspection Extrem General: Yes normal to inspection and No edema Coding Level of Care Code Est Pt Level 4 (66783) Diagnoses TSH elevation R79.89 Multinodular goiter E04.2 Benign prostatic hyperplasia with urinary frequency N40.1; R35.0 Lower urinary tract symptom detail: urinary frequency Lower urinary tract symptom presence: symptoms present Assessment & Plan Assessment & Plan (1) TSH elevation: Code(s): R79.89 - Other specified abnormal findings of blood chemistry Category: Medical Plan: Advised to follow-up testing after 6 weeks (2) Multinodular goiter: Comment: Seeing endocrinology and advised to get ultrasound in 07/2024 Code(s): E04.2 - Nontoxic multinodular goiter Category: Medical Plan: Continuing to monitor and ultrasound of the thyroid pending (3) BPH (benign prostatic hyperplasia): Code(s): N40.0 - Benign prostatic hyperplasia without lower urinary tract symptoms Category: Medical Qualifiers: Lower urinary tract symptom detail: urinary frequency Lower urinary tract symptom presence: symptoms present Qualified Code(s): N40.1 - Benign prostatic hyperplasia with lower urinary tract symptoms; R35.0 - Frequency of micturition Plan: Continue with alfuzosin Plan - Benign Prostatic Hyperplasia: Continue alfazosin as prescribed. Follow up with urologist as scheduled. - Varicose Veins: Proceed with radiofrequency ablation on the right leg as planned and continue scheduled ultrasound follow-up. - Thyroid: Retest TSH in 2-3 months. Continue current monitoring and evaluate for potential hypothyroidism. Follow ultrasound findings showing no growth. - Carcinoid Tumor: Continue routine surveillance for recurrence post-lobectomy. 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 - Cataract: Attend planned ophthalmology evaluation in February to assess need for intervention. - General: Encourage dietary management to alleviate gastrointestinal sensitivities. Maintain current health monitoring regimen and follow up as scheduled.
[2024-09-04 15:35] VITALS: BP 116/80; PULSE 75; O2SAT 97; BMI 32.7
--- OUTSIDE RECORDS SUMMARY | 2024-09-04 16:30 | XMS_ITS | Continuity of Care Document ---
Author Organization [facility] Address [address] [place] [address] [address] [place] [address] Phone Care Team Providers Care Digital Forensics Investigator Name Role Phone Hernandez VANESSA, THOMAS, Benito MYERS Unavailable U navailable Allergies, Adverse Reactions, Alerts Substance Reaction Status Criticality tamsulosin Active No Information PENICILLIN Active No Information lisinopril Active No Information Procedures Procedure Date Endovenous Rf, 1st Vein- [place] & [place] 2024 Offic/outpt E&m Estab 5 Min Trial- Telem [...] Providers Copied on Encounter [facility], [address] [place] [address] [address], [place], [id number], [place] tel:[phone] R - [place] - [place] Chronic venous hypertension (idiopathic) with inflammation of right lower extremity 5 Hernandez VANESSA, LOUIS GUZMAN. [address] [facility] [address], [place], [place], [id number] , [place]. tel:[phone] Referring Provider: Viri Malhotra MD, [address] [place] [address] Dr [address] [facility], [place], [address]. tel:[phone] Jocelyn Martinez [facility], [address] [place] [address] [address] [place], [id number], [place] tel:[phone] CVR - [facility] No Information 5 Hernandez VANESSA RVT, LOUIS Oliver. [address] [facility], [address], [place], [place], [id number] , [place]. [phone] Offic/outpt E&m Estab 5 Min Trial- Telemedicine CT & [place] [facility], [address] [place] [address] [address], [id number], [place] tel:[phone] CVR - [facility] Chronic venous hypertension (idiopathic) with other complications of bilateral lower extremity 5 Hernandez VANESSA RVT, LOUIS Oliver. [address] [facility], [address], [place], [place], [id number] , [place]. tel:[phone] Referring Provider: Viri Malhotra MD, [address] [place] [address] Dr [address] [facility] [place], [address]. tel:[phone] Office/Oupt E&M New Pt 30 Mins- CT & [place] [facility] For [facility]in [facility], [address] [place] [address] [address] [place], [id number], [place] tel:[phone] [facility] Varicose veins of bilateral lower extremities with other complications Pain in right lower legPain in left lower legPain in right legPhlebitis and thrombophlebi tis of superficial vessels of right lower extremityPain in left legLocalized edema 4 Hernandez VANESSA RVT, LOUIS Oliver. [address] [facility], [address], [place], [place], [id number] , [place]. tel:[phone] Jocelyn Martinez Vein [facility], [address] [place] [address] Dr [address]Suite [place], [id number], [place] tel:[phone] CVR - [facility] Chronic venous hypertension (idiopathic) with other complications of bilateral lower extremity Jun- 4 Hernandez VANESSA RVT, RPFAUSTO Oliver. [address] [facility], [address], [place], [place], [id number] , [place]. tel:[phone] Referring Provider: Viri Malhotra MD, [address] [place] [address] [address] [facility], [place], [address]. tel:[phone] Family History Family Member Type Diagnosis Age At Onset No Information Payers Payer name Insurance type Covered constitution party ID Authorrayoa timary(s) [place] [id number] Social History Type Description Quantity Date Captured [...]
--- OUTSIDE RECORDS SUMMARY | 2024-09-04 16:30 | XMS_ITS | Continuity of Care Document ---
Author Organization [facility] [address] [facility] [address] [place] [address] Phone [phone] Care Team Providers Care Conche Loader And Unloader Name Role Phone Po, Lormelisaver Care Team Information Podiatry Assistant [phone] Problems Active Problems Provider Date Carpal tunnel syndrome Michael Dockery M.D. 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 Onset: 06/13/2023 Crohn's disease Michael Dockery M.D. Onset: 1 08/13/2022 Degeneration of cervical int ervertebral disc Michael Dockery M.D. Onset: 06/13/2023 Obesity Michael Dockery M.D. Onset: 1 08/13/2022 Benign neoplasm of thyroid gland Michael vincent M.D. Onset: 03/20/2024 Social History Type Date Description Comments Sex Unknown Tobacco Use Start: Unknown Never Smoked Cigarettes Smoking Status Reviewed: 06/13/23 Never Smoked Cigaret roz ETOH Use Rarely consumes beer Allergies and adverse reactions Active Allergies Criticality Reaction Severity Comments Date Penicillins Unable to assess criticality 06/13/2023 Lisinopril Unable to assess criticality 06/13/2023 Medications Active Medications SIG Qnty Indications Ordering Provider Date Ciclopirox8% Solution Apply 1 Application Topically Bedtime For 4 Weeks Po, Lorenver Vital Signs Date Vital Result Comment 03/20/2024 10:13am Height 71 inches 5'11 Weight 227.12 lb BMI (Body Mass Index) 31.7 kg/m2 Results Test Acquired Date Facility Test Result H/L Range N ote Laboratory test finding 03/14/2024 [facility] TSH 3.250 uIU/mL 0.450-4.50 0 Thyroxine (T4) Free, Direct 1.15 ng/dL 0.82-1.77 Medical Devices Description No Information Available Encounters Type Date Location Provider Dx Diagnosis Office Visit 03/20/2024 10:15a Main Office Michael Dockery M.D. E04.2 Nontoxic multinodular goiter Assessments Date Code Description Provider 03/20/2024 E04.2 Multinodular goiter Michael Gooden M.D. Plan of Treatment Future Appointment(s):* 03/23/2025 9:00 am - Michael Dockery M.D. at Main Office 03/20/2024 - Michael Dockery M.D.* E04.2 Multinodular goiter Functional Status Description No Information Available Mental Status Description No Information Available Referrals Refer to Dr Reason for Referral Status Appt Homer e Willian Covarrubias MD [facility]OPLASM Closed 08/23/2023 (New Patient Referral Only) Michael Dockery M.D. Closed [address] [place] [address] [address] [place] [address] [phone]
--- OUTSIDE RECORDS SUMMARY | 2024-09-04 16:30 | XMS_ITS | Clinical Summary ---
Author Organization [facility] Address [address] [place] [address] Phone Care Team Providers Care Patient Liaison Name Role Phone Viri Malhotra MD Primary Care Provider [phone] Allergies Active Allergy Reactions Criticality Noted Date [...] follow with the thoracic surgical department at [facility] every 6 months following his surgery with a chest CT surveillance scan for the first 2 years following his surgery. At the end of [address] surveillance will be increased to every 12 months for 3 years thereafter for a total surveillance time of 5 years. Due to patient's staging he will also be referred to medical oncology at [facility] for discussion of any further treatment options. Surgical History Surgery Date Site/Laterality Comments OTHER SURGICAL HISTORY 12/13/2021 Right PROCEDURE: VA THORACOSCOPY W/LOBECTOMY SINGLE LOBE; COMMENT: RUL Lobectomy, mediastinal lymphadenectomy. Carcinoid tumor, 1+ lymph node. OTHER SURGICAL HISTORY 2021 PROCEDURE: PULMONOLOGY BRONCHOSCOPY OTHER SURGICAL HISTORY 2015 PROCEDURE: LAPAROSCOPY, INGUINAL HERNIA REPAIR CATARACT EXTRACTION 2017 PROCEDURE: HISTORICAL CATARACT REMOVAL OTHER SURGICAL HISTORY 2018 PROCEDURE: VA EXC HYDROCELE SPRMATIC CORD UNI SPX OTHER SURGICAL HISTORY 1972 PROCEDURE: MANDIBULAR DENTURE PROSTH OTHER SURGICAL HISTORY 2017 PROCEDURE: COLONOSCOPY, SURGICAL Medical History Medical History Date Comments Basal cell carcinoma DX:Basal ce ll carcinoma; COMMENT: arm Carpal tunnel syndrome DX:Carpal tunnel syndrome Crohn's disease (CMS/HCC) 1993 DX:Client Relations Specialist hn's disease (HCC) Peripheral vascular disease (CMS/HCC) [...] Team (Late st Contact Info) Description 09/15/2024 3:00 PM EST Hospital Encounter [facility] CT Scan [address] [place] [id number] 2024 11:00 AM EDT Office Visit Thoracic Surgery - [place] [address] [phone] Rashad Best PA [address] [address] Health Maintenance Due Date Last Done Comments [...] patient's age to complete this topic Insurance [facility]) MEDICARE ADVANTAGE Advance Directives Documents on File Type Date Recorded Patient Car Hop Expl anation Health Care Decision (hx) 12/05/2021 JEAN-PIERRE GALICIA DIRECTIVE Care Teams Patient Liaison Relationship Specialty Start Date End Date Viri Malhotra MD [address] [place] [address] [address] [facility] [place] [address] PCP - General Internal Medicine 12/16/21
--- OUTSIDE RECORDS SUMMARY | 2024-09-04 16:30 | XMS_ITS | Patient Health Record ---
Author Organization 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) Active confirmed 88783303 Problem Elevated liver function tests (R94.5) Active confirmed Elevated liver enzymes level (892225867) PLAN OF TREATMENT Pending Test Test Name Order Date LIVER PROFILE 01/17/2022 LIVER PROFILE 03/21/2022 Liver Panel 07/14/2022 Future Test Test Name Order Date COLONOSCOPY 10/16/2012 COLONOSCOPY 10/26/2017 Insurance Providers Payer Name Payer Address Payer Phone Subscriber Number Group Number Insured Name Patient Relationship to Insured Coverage Start Date Coverage End Date [facility] PROFESSIONAL CLAIMS [address] [place] [address] [id number] MIGUELITO ABEL Self - patient is the insured MEDICAL (GENERAL) HISTORY Medical History History ICD Code Ulcerative proctitis-diagnos ed in 1993- colonoscopy was in 03/2013-minimal distal proctitis-all biopsies negative for colitis/dysplasia-mild diverticulosis was noted as well. Denies CA,DM,CVA,Lung disease,renal dise ase RUL carcinoid tumor with [...] and umbilical hernias rep aired--Dr. Patel at [facility] Basal cell cancer on arm RUL resection for the carcinoid tumor Dr Kaitlynn Moore Right testicle surgery with Dr. Alissa mcdonald
== END ==
PROVIDERS: PCP Internal Medicine; Visit Provider Internal Medicine
DX: R79.89 Other specified abnormal findings of blood chemistry (principal); E04.2 Nontoxic multinodular goiter; N40.1 Benign prostatic hyperplasia with lower urinary tract symptoms; R35.0 Frequency of micturition

== ENCOUNTER 2024-09-12 10:21 | Outpatient (AMB) | payer MEDICARE, SELFPAY ==
--- NOTE | 2024-09-12 10:32 | A.OFFVIS_ITS ---
Intake Visit Reasons: 6M PVR/PSA(Set) Intake Note: Pt presents to the office today for a 6 month follow up PVR/PSA. PVR:42mL Allergies penicillin V Allergy (Unknown, Verified 09/12/24 10:32) u Penicillins [PENICILLINS] Allergy (Unknown, Verified 09/12/24 10:32) RASH lisinopril Adverse Reaction (Intermediate, Verified 09/12/24 10:32) cough tamsulosin Adverse Reaction (Intermediate, Verified 09/12/24 10:32) jaundice HPI Comments Details: Jovanny is a pleasant male. He is a patient of Dr. Malhotra. He is seen for the following urologic conditions - lower urinary tract symptoms Here for six-month follow-up Continues to do well with alfuzosin Will push out to yearly follow-up Recently had vein RFA on his legs and is very happy about the results Cystoscopy 03/08 - Minimal medial hypertrophy Urinary Symptoms Review - Reported improved urination with alfuzosin. - Occasional nocturia, typically up to two times per night. - Retention volume approximately one ounce as per last examination. - PSA level checked recently and noted to be normal. - Reports urination stream sufficiently strong but variable in distance. - No significant urinary issues except occasional minor difficulties. Lower urinary tract symptoms Progressive weakness of stream Incomplete bladder emptying PSA - 11/06 1.9, 09/09 2.2 PFSH Medical History Thyroid mass COVID-19 virus infection Ground glass opacity present on imaging of lung Hospital discharge follow-up Elevated LFTs Carcinoid tumor of lung (~2021) Pulmonary nodule 1 cm or greater in diameter Cataract Verruca Obesity with body mass index (BMI) of 30.0 to 39.9 Basal cell carcinoma, arm Schamberg's disease Migraine Peripheral vascular disease Crohn's disease (~1993) Degenerative disc disease, cervical Carpal tunnel syndrome Surgical History History of lobectomy of lung (~2021) History of bronchoscopy (~2021) History of hydrocelectomy (~2018) History of surgery on arm History of mandibular surgery (~1972) History of colonoscopy (~2017) History of cataract surgery (~2017) History of inguinal hernia repair (~2015) Family History Mother Stroke Father Skin cancer (melanoma) Paternal Grandfather Skin cancer (melanoma) Paternal Uncle FHx: cancer of prostate Leukemia Paternal Uncle Cancer Social History Household Members: Significant Other Housing: House Alcohol intake: current Alcohol intake frequency: holidays/special occasions only Alcohol type: beer Comment: discharged home- 1-2 a week 1-2 bottles of beer Patient Tobacco Use Status: Never used Tobacco e-Cigarette/Vaping Use: Never Used Second Hand Smoke Exposure: No service: No Current occupational status: retired Cognitive needs: No Hearing needs: No Vision needs: Yes Review of Systems Const Denies chills and Denies fever(s) Card Reports no additional complaints and Denies syncope Resp Denies cough GI Denies abdominal pain and Denies heartburn Reports as per HPI and Denies change in libido Neuro Denies syncope Psych Denies change in libido Endo Denies change in libido Physical Exam Const General: cooperative, healthy appearing, comfortable and no acute distress Orientation/consciousness: patient oriented x3 HEENT Face and sinus: Yes normal facial exam Mouth: moist mucous membranes Neck Neck: Yes normal visual inspection, Yes full ROM and Yes trachea midline Chest Chest palpation & inspection: normal inspection of the chest Resp Effort & Inspection: normal respiratory effort, able to speak in complete sentences and no respiratory distress GI Inspection: Yes normal to inspection Back/Spine/Pelvis Cervical Spine: normal cervical lordosis Thoracic/Lumbar Spine: thoracic and lumbar spine normal to inspection Skin General skin exam: no rashes or lesions noted Neuro General: patient oriented x3, gait normal, tone normal and moves all extremities Extrem General: Yes normal to inspection and Yes capillary refill normal Office Procedures Post Void Residual Post Residual Void Post Void Residual (PVR): 42 86422-[id number] Void Residual by ultrasound Assessment & Plan Assessment & Plan (1) Erectile dysfunction: Code(s): N52.9 - Male erectile dysfunction, unspecified Category: Medical Qualifiers: Erectile dysfunction type: vasculogenic Vasculogenic erectile dysfunction type: unspecified Qualified Code(s): N52.9 - Male erectile dysfunction, unspecified (2) BPH (benign prostatic hyperplasia): Code(s): N40.0 - Benign prostatic hyperplasia without lower urinary tract symptoms Category: Medical Qualifiers: Lower urinary tract symptom presence: symptoms present Lower urinary tract symptom detail: urinary frequency Qualified Code(s): N40.1 - Benign prostatic hyperplasia with lower urinary tract symptoms; R35.0 - Frequency of micturition (3) Frequency of micturition: Code(s): R35.0 - Frequency of micturition Category: Medical Plan Plan Continue alfuzosin for LUTS as it effectively manages symptoms. Monitor thyroid nodules due to history of thyroidectomy and benign biopsy results. No intervention needed for veins post-RFA; positive outcome. Schedule follow-up in 12 months for bladder and LUTS assessment. Emphasize continuation of physical activity and dietary adjustments. Discussion Notes During today's consultation, I reviewed the patient's progress with the current medication regimen for LUTS, acknowledging the significant symptomatic relief provided by alfuzosin. I discussed the importance of continual monitoring of prostate health and indicated that the patient's PSA levels are stable. Patient Instructions - Continue taking alfuzosin as prescribed for urinary symptoms. - Schedule and attend a follow-up appointment in 12 months. - Continue current physical activities, such as daily walking. - Maintain current dietary habits focusing on salads and vegetables. - Monitor urinary symptoms or any significant changes and report them. - Report any new or concerning symptoms related to urinary function or thyroid to a healthcare provider promptly. Orders: Orders AMB Post Void Residual by ultrasound Today N40.1 - Benign prostatic hyperplasia with lower urinary tract symptoms, R35.0 - Frequency of micturition Patient Instructions: This note is constructed using voice recognition software. While every effort has been made to ensure accuracy mold technician errors may have been included. Imaging studies, laboratory and physical exam results were discussed and reviewed in detail. No major barriers to patient understanding were identified. An opportunity to ask questions regarding the treatment plan was provided. All questions were answered. The patient expressed understanding and agreement with the above treatment plan. The patient is aware they should contact our office by phone for worsening of their current condition or the appearance of new urologic symptoms. Compliance is encouraged with any medications and followup testing that is ordered. It is a privilege to participate in the urologic care of your patient. If you have any questions or concerns regarding treatment for the above conditions, or other urologic issues, please do not hesitate to contact me. The office telephone contact is [phone]. Sincerely, Dr Luis Pichardo MD, [facility] - Urology Compassionate Specialist Care for the Genitourinary System Coding Level of Care Code Est Pt Level 3 (81990) Diagnoses Vasculogenic erectile dysfunction, unspecified vasculogenic erectile dysfunction type N52.9 Erectile dysfunction type: vasculogenic Vasculogenic erectile dysfunction type: unspecified Benign prostatic hyperplasia with urinary frequency N40.1; R35.0 Lower urinary tract symptom presence: symptoms present Lower urinary tract symptom detail: urinary frequency Frequency of micturition R35.0 CPT Codes Post Residual Void - PVR CPT Code: 67454-[id number] Void Residual by ultrasound ( [id number])
--- OUTSIDE RECORDS SUMMARY | 2024-09-12 11:37 | XMS_ITS | Clinical Summary ---
Author Organization [facility] Address [address] [place] [address] Phone Care Team Providers Care Automatic Coil Machine Operator Name Role Phone Viri Malhotra MD Primary Care Provider [phone] Allergies Active Allergy Reactions Criticality Noted Date [...] follow with the thoracic surgical department at [facility] every 6 months following his surgery with a chest CT surveillance scan for the first 2 years following his surgery. At the end of [address] surveillance will be increased to every 12 months for 3 years thereafter for a total surveillance time of 5 years. Due to patient's staging he will also be referred to medical oncology at [facility] for discussion of any further treatment options. Surgical History Surgery Date Site/Laterality Comments OTHER SURGICAL HISTORY 12/13/2021 Right PROCEDURE: IN THORACOSCOPY W/LOBECTOMY SINGLE LOBE; COMMENT: RUL Lobectomy, mediastinal lymphadenectomy. Carcinoid tumor, 1+ lymph node. OTHER SURGICAL HISTORY 2021 PROCEDURE: PULMONOLOGY BRONCHOSCOPY OTHER SURGICAL HISTORY 2015 PROCEDURE: LAPAROSCOPY, INGUINAL HERNIA REPAIR CATARACT EXTRACTION 2017 PROCEDURE: HISTORICAL CATARACT REMOVAL OTHER SURGICAL HISTORY 2018 PROCEDURE: IN EXC HYDROCELE SPRMATIC CORD UNI SPX OTHER SURGICAL HISTORY 1972 PROCEDURE: MANDIBULAR DENTURE PROSTH OTHER SURGICAL HISTORY 2017 PROCEDURE: COLONOSCOPY, SURGICAL Medical History Medical History Date Comments Basal cell carcinoma DX:Basal ce ll carcinoma; COMMENT: arm Carpal tunnel syndrome DX:Carpal tunnel syndrome Crohn's disease (CMS/HCC) 1993 DX:Rolled Glass Crosscutter hn's disease (HCC) Peripheral vascular disease (CMS/HCC) [...] Description 09/15/2024 3:00 PM EST Hospital Encounter [facility] CT Scan [address] [place] [id number] 2024 11:00 AM EDT Office Visit Thoracic Surgery - [place] [address] [phone] Rashad Best PA [address] [address] Health Maintenance Due Date Last Done Comments [...] patient's age to complete this topic Insurance [facility]) MEDICARE ADVANTAGE Advance Directives Documents on File Type Date Recorded Patient Bench Boring Machine Operator Expl anation Health Care Decision (hx) 12/05/2021 JEAN-PIERRE GALICIA DIRECTIVE Care Teams Automatic Coil Machine Operator Relationship Specialty Start Date End Date Viri Malhotra MD [address] [place] [address] [address] [facility] [place] [address] PCP - General Internal Medicine 12/16/21
--- OUTSIDE RECORDS SUMMARY | 2024-09-12 11:37 | XMS_ITS | Patient Health Record ---
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) Active confirmed 12028530 Problem Elevated liver function tests (R94.5) Active confirmed Elevated liver enzymes level (153062786) PLAN OF TREATMENT Pending Test Test Name Order Date LIVER PROFILE 03/21/2022 LIVER PROFILE 01/17/2022 Liver Panel 07/14/2022 Future Test Test Name Order Date COLONOSCOPY 10/16/2012 COLONOSCOPY 10/26/2017 Insurance Providers Payer Name Payer Address Payer Phone Subscriber Number Group Number Insured Name Patient Relationship to Insured Coverage Start Date Coverage End Date [facility] PROFESSIONAL CLAIMS [address] [place] [address] [id number] MIGUELITO ABEL Self - patient is the insured MEDICAL (GENERAL) HISTORY Medical History History ICD Code Ulcerative proctitis-diagnos ed in 1993- colonoscopy was in 03/2013-minimal distal proctitis-all biopsies negative for colitis/dysplasia-mild diverticulosis was noted as well. Denies OR,DM,CVA,Lung disease,renal dise ase RUL carcinoid tumor with [...] and umbilical hernias rep aired--Dr. Patel at [facility] Basal cell cancer on arm RUL resection for the carcinoid tumor Dr Kaitlynn Moore Right testicle surgery with Dr. Alissa mcdonald
--- OUTSIDE RECORDS SUMMARY | 2024-09-12 11:37 | XMS_ITS | Continuity of Care Document ---
Author Organization [facility] [address] [place] [address] Phone [phone] Care Team Providers Care Tour Production Supervisor Name Role Phone Po, Lormelisaver Care Team Information Admissions Dean [phone] Problems Active Problems Provider Date Carpal tunnel [...] Patient Referral Only) Michael Dockery M.D. Closed [address] [place] [address] [address] [place] [address] [phone]
== END 2024-09-12 11:00 | disposition home or self-care (01) ==
PROVIDERS: PCP Internal Medicine; Visit Provider Urology
DX: N52.9 Male erectile dysfunction, unspecified (principal); N40.1 Benign prostatic hyperplasia with lower urinary tract symptoms; R35.0 Frequency of micturition
CPT/HCPCS: 99213

== ENCOUNTER → 2024-09-12 10:21 | Outpatient (BNVA) | payer MEDICARE, SELFPAY | PROVIDERS: PCP Internal Medicine; Visit Provider Urology | DX: N52.9 Male erectile dysfunction, unspecified (principal); N40.1 Benign prostatic hyperplasia with lower urinary tract symptoms; R35.0 Frequency of micturition | CPT/HCPCS: 51798; 99212 ==

== ENCOUNTER 2024-10-01 10:27 | Outpatient (AMB) | payer MEDICARE, SELFPAY ==
--- NOTE | 2024-10-01 10:34 | MHC.PC.OV ---
Vital Signs 10/01/24 10:35 Height 5 ft 10 in Weight 227 lb 6 oz BMI 32.6 BP 130/70 Blood Pressure Location Lt brachial Position Sitting Pulse 80 Pulse Source Pulse Oximeter Temp 97.8 F Temp Source Temporal Artery Scan Pulse Oximetry (%) 96 Oxygen Delivery Method Room Air Intake Visit Reasons: annual exam Intake Note: Patient is here today for a physical. 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 Attendant: Not Required per policy Accompanied by: Self / Same As Patient Allergies penicillin V Allergy (Unknown, Verified 10/01/24 10:35) u Penicillins [PENICILLINS] Allergy (Unknown, Verified 10/01/24 10:35) RASH lisinopril Adverse Reaction (Intermediate, Verified 10/01/24 10:35) cough tamsulosin Adverse Reaction (Intermediate, Verified 10/01/24 10:35) jaundice Medication List - Last Reconciled 10/01/24 by Viri Malhotra MD alfuzosin ER 10 mg PO BEDTIME 90 days ciclopirox 8% 1 appl topical BEDTIME 4 weeks Lactobacillus acidophilus (Probiotic) 10,000 mmu cells PO DAILY [id number] mcg (Centrum Minis Men 50 Plus) 150 tabs PO DAILY sodium chloride 5% 1 drp ophthalmic (eye) QID PRN Tobacco use date assessed: 10/01/24 Fall risk assessment: No Falls in past year Last assessed Fall Risk: 10/01/24 Dental Screening Dental Screen Date: 09/04/24 [facility] Medical History Thyroid mass COVID-19 virus infection Ground glass opacity present on imaging of lung Hospital discharge follow-up Elevated LFTs Carcinoid tumor of lung (~2021) Pulmonary nodule 1 cm or greater in diameter Cataract Verruca Obesity with body mass index (BMI) of 30.0 to 39.9 Basal cell carcinoma, arm Schamberg's disease Migraine Peripheral vascular disease Crohn's disease (~1993) Degenerative disc disease, cervical Carpal tunnel syndrome Surgical History History of lobectomy of lung (~2021) History of bronchoscopy (~2021) History of hydrocelectomy (~2018) History of surgery on arm History of mandibular surgery (~1972) History of colonoscopy (~2018) History of cataract surgery (~2018) History of inguinal hernia repair (~2016) Family History Mother Stroke Father Skin cancer (melanoma) Paternal Grandfather Skin cancer (melanoma) Paternal Uncle FHx: cancer of prostate Leukemia Paternal Uncle Cancer Social History (Updated 10/01/24 @ 11:13 by Viri Malhotra MD) Household Members: Significant Other Housing: House Alcohol intake: current Alcohol intake frequency: holidays/special occasions only Alcohol type: beer Comment: discharged home- 1-2 a week 1-2 bottles of beer, 2 x a month 1-2 beers (3 Patient Tobacco Use Status: Never used Tobacco e-Cigarette/Vaping Use: Never Used Second Hand Smoke Exposure: No service: No Current occupational status: retired Cognitive needs: No Hearing needs: No Vision needs: Yes Questionnaire PHQ-9 Over the last 2 weeks, how often have you been bothered by any of the following problems? 1. Little interest or pleasure in doing things: not at all 2. Feeling down, depressed, or hopeless: not at all 3. Trouble falling or staying asleep, or sleeping too much: not at all 4. Feeling tired or having little energy: not at all 5. Poor appetite or overeating: not at all 6. Feeling bad about yourself - or that you are a failure or have let yourself or your family down: not at all 7. Trouble concentrating on things, such as reading the newspaper or watching television: not at all 8. Moving or speaking so slowly that other people could have noticed. Or the opposite - being so fidgety or restless that you have been moving around a lot more than usual: not at all 9. Thoughts that you would be better off or of hurting yourself in some way: not at all Total score: 0 Depression Screening Interpretation: Negative Depression Screening Done: Yes Source: Developed by Drs. Benito Colbert, Serena Buckley, Rito Padgett and colleagues, with an educational chu from [employer]. Thrive Questionnaire Date Thrive assessed: 10/01/24 I am a: Patient What is your living situation today?: I have a steady place to live Within the past 12 months, did the food you bought not last and you didn't have the money to get more?: Never true Within the past 12 months, did you worry whether your food would run out before you got money to buy more?: Never true Do you have trouble paying for medicines?: No Do you have trouble getting transportation to medical appointments?: No Do you have trouble paying your heating and electricity bill?: No Do you have trouble taking care of your child, family member or friend?: No Do you have trouble with day-to-day activities such as bathing, preparing meals, shopping, managing finances, etc.?: No Are you currently unemployed and looking for a job?: No Are you interested in more education?: No Please select the resources that you would like help with: None Currently or been in a relationship where the following occur: No concerns reported THRIVE Score: 0 AUDIT C Alcohol Use Questionnaire (AUDIT-C) 1. How often do you have a drink containing alcohol?: 2-4 times a month 2. How many drinks containing alcohol do you have on a typical day when you are drinking?: 1 or 2 3. How often do you have six or more drinks on one occasion?: Never Total Score: 2 CAPRI-7 AMB Questionnaire CAPRI-7 Date CAPRI - 7 assessed: 10/01/24 Feeling nervous, anxious, or on edge: 0 = Not at all Not being able to stop or control worryin = Not at all Worrying too much about different things: 0 = Not at all Trouble relaxin = Not at all Being so restless that it is hard to sit still: 0 = Not at all Becoming easily annoyed or irritable: 0 = Not at all Feeling afraid as if something awful might happen: 0 = Not at all Total CAPRI-7 score (0-4 normal; 5-9 mild; 10-14 moderate; 15-21 severe): 0 Source: Developed by Drs. Benito Colbert, Serena Buckley, Rito Padgett and colleagues, with an educational chu from [employer]. Review of Systems Const Denies poor appetite and Denies weakness Eyes Denies no additional complaints ENT Reports Normal hearing present, Denies dizziness, Denies nasal congestion, Denies tinnitus and Denies sore throat Card Denies chest pain, Denies syncope, Denies rapid heart rate and Denies dyspnea Resp Denies cough and Denies dyspnea GI Denies change in stool character, Reports constipation, Denies diarrhea, Denies nausea and Denies vomiting Denies dysuria and Denies urinary frequency Neuro Reports Normal hearing present, Denies confusion, Denies dizziness, Denies syncope and Denies weakness Psych Denies confusion Physical exam (Primary Care) Vital Signs: Last Vital Signs Temp 97.8 F 10/01/24 10:35 Pulse 80 10/01/24 10:35 BP 130/70 10/01/24 10:35 Pulse Ox 96 10/01/24 10:35 Oxygen Delivery Method Room Air 10/01/24 10:35 BMI result Body Mass Index 32.6 Tobacco/Smoking Status: Tobacco use Status Tobacco use date assessed 10/01/24 10/01/24 10:40 Patient Tobacco Use Status Never used Tobacco 10/01/24 10:40 e-Cigarette/Vaping Use Never Used 10/01/24 10:40 PHQ-9: PHQ-9 Score PHQ-9: Total score 0 10/01/24 10:40 Depression Screening Interpretation: Negative Thrive Assessment: Date of Thrive Assessment Date Thrive assessed 10/01/24 10/01/24 10:40 Currently or been in a relationship where the following occur: No concerns reported Const General: No confusion Orientation/consciousness: No confusion HENMT Head: Yes normocephalic Ears: external ears normal and TM's normal bilaterally Face and sinus: Yes normal facial exam Mouth: moist mucous membranes Throat: Yes tonsils normal Eyes Conjunctivae: conjunctivae normal Pupils: Equal, round and reactive pupils present and Pupil accommodation reflex normal Direct Ophthalmoscopy: normal light reflex Neck Neck: No lymphadenopathy Thyroid: Thyroid normal Chest Chest palpation & inspection: normal inspection of the chest Resp Effort & Inspection: normal respiratory effort and no audible wheezes Auscultation: clear to auscultation bilaterally, no crackles, no wheezes and lung sounds not diminished Cardio Rate: regular rate Rhythm: regular rhythm Peripheral pulses: radial pulses present and dorsalis pedis present GI Other: guaaic negative prostate no masses Palpation (GI): no masses Auscultation: normal bowel sounds and normoactive bowel sounds Male General Exam: Yes normal external exam Skin General skin exam: no rashes or lesions noted Rashes: no rashes Neuro General: No confusion Cranial nerves: Yes Equal, round and reactive pupils present and Yes Normal hearing present Cognition (Neuro): normal cognition Gait exam (Neuro): Normal gait present Motor exam (neuro): 5/5 motor strength present throughout Deep tendon reflexes (DTR's): Right brachioradialis reflex intensity grade: 2+, Left brachioradialis reflex intensity grade: 2+, Right patellar reflex intensity grade: 2+ and Left patellar reflex intensity grade: 2+ Extrem General: No edema Coding Level of Care Code Est Pt Prev Care >65y(63741) Diagnoses Annual physical exam Z00.00 TSH elevation R79.89 Hurthle cell carcinoma of thyroid C73 Multinodular goiter 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 (2) TSH elevation: Code(s): R79.89 - Other specified abnormal findings of blood chemistry Category: Medical Plan: Continue to monitor and advised repeat testing in 2 months (3) Hurthle cell carcinoma of thyroid: Comment: Thyroid isthmusectomy Dr. Covarrubias January 2024 Code(s): C73 - Malignant neoplasm of thyroid gland Category: Medical Plan: Continue to follow-up with thyroid numbers (4) Multinodular goiter: Comment: Seeing endocrinology and advised to get ultrasound in 07/2024 Code(s): E04.2 - Nontoxic multinodular goiter Category: Medical Plan: Advised to get an ultrasound of the thyroid (5) Carcinoid tumor of lung: Onset Date: ~2021 Comment: Atypical carcinoid/Neuroendocrine tumor grade 2 (s/p Da Gen RUL lobectomy on 12/13/21) August 2022surveillance imaging as per protocol which is a CT scan every 6 months for the 1st 2 years postoperatively followed by yearly for 7 years after Code(s): D3A.090 - Benign carcinoid tumor of the bronchus and lung Category: Medical Plan: Patient is under surveillance yearly CT scan in 10/02/2025 next. (6) BPH (benign prostatic hyperplasia): Code(s): N40.0 - Benign prostatic hyperplasia without lower urinary tract symptoms Category: Medical Qualifiers: Lower urinary tract symptom presence: symptoms present Lower urinary tract symptom detail: urinary frequency Qualified Code(s): N40.1 - Benign prostatic hyperplasia with lower urinary tract symptoms; R35.0 - Frequency of micturition Plan: Patient follows up with urology and has been placed on alfuzosin (7) Right renal stone: Comment: CT scan 08/2024 Code(s): N20.0 - Calculus of kidney Category: Medical (8) GERD (gastroesophageal reflux disease): Code(s): K21.9 - Gastro-esophageal reflux disease without esophagitis Category: Medical Plan History of Present Illness The patient is a 69-year-old male presenting for an annual physical examination. The patient has a right upper lobectomy post-carcinoid tumor of the lung, currently on surveillance with recent imaging indicating stable findings. The patient has a history of H?rthle cell carcinoma with thyroid isthmusectomy and BPH managed with alfuzosin. A kidney stone of less than 5 mm was noted on the last CT scan, requiring no immediate intervention. He displays features of obesity and maintains an active lifestyle despite discomfort due to past cervical spondylosis and previous muscle tears. The patient denies significant respiratory distress but occasionally experiences wheezing linked to past surgery, with albuterol available for management. The patient's previous shoulder injury has led to reduced strength in his right arm. He consumes alcohol sparingly and maintains a balanced diet with regular physical activity yet has elevated TSH levels requiring further surveillance. Health Maintenance - Scheduled follow-up for thyroid function monitoring in the form of TSH testing next month - Recommended tetanus booster - Reminder of upcoming routine annual thoracic imaging (CT) in September 2025 - Encouraged to maintain a healthy lifestyle with routine exercise to support weight management - Vaccination up to date excluding shingles, informed of possible future need for shingles vaccination Social History - Past employment status not discussed - Lives with a girlfriend - Light alcohol consumption, 1-2 beverages twice monthly - No smoking - Exercise includes walking, although previously limited due to leg discomfort; aims to increase physical activity - Standard nutritional intake includes chicken, fish, and salads Review of Systems - Musculoskeletal: Reports shoulder pain in the right shoulder area - Respiratory: Occasionally reports wheezing - Gastrointestinal: Denies acid reflux but mentions occasional heartburn - Genitourinary: Urinates once or twice at night; no additional complaints - Neurological: Denies dizziness, no new neurological symptoms Physical Exam General: Cooperative, healthy appearing, comfortable, no acute distress and well developed Orientation: Patient oriented x3 Limitations: No limitations Head: Normal to inspection Ears: Hearing grossly normal bilaterally Nose: Normal external nose present Face and sinus: Normal facial exam Eyes: Appearance normal, both eyes and all related structures Neck: Normal visual inspection and Yes full ROM Respiratory: Mild emphysema noted, occasional wheezing reported, advised to perform breathing exercises Cardiovascular: Regular rate and rhythm. Normal S1 and S2 GI: Normal to inspection. Soft to palpation and nontender Skin: No rashes or lesions noted Neuro: Patient oriented x3 Extremities: Normal to inspection Results - Tests: Last colonoscopy in 2018?planned for re-evaluation after 10 years unless symptoms intervene. - Imaging: Last CT scan on September 26, 2024?showed stable post-lobectomy changes, no new pulmonary nodules. - Labs: August 2024 labs revealed normal blood count, electrolytes, renal function, normal fasting blood glucose, liver function, LDL cholesterol at 94 mg/dL, and good HDL at 57 mg/dL; PSA level normal, B12 and folic acid within normal range, TSH elevated at 5.02 mU/L. Plan I will oversee ongoing management of thyroid function, recommending follow-up TSH testing alongside potential ultrasound for accurate assessment. Management of BPH remains without alteration as symptoms are controlled, requiring future cystoscopy based on symptomatic need. Continued monitoring of post-lobectomy status through CT imaging ensures optimal surveillance of his respiratory status. His lipid profile is commendable; hence, encouraging dietary adjustments suffices. Cervical spine concerns require therapeutic exercise engagement, serving to alleviate musculoskeletal discomfort and uphold functional status. Specific advice on kidney stone management with hydration techniques signifies consideration for nephrological wellness. His vaccination understanding needs fostering with potential shingles discussions for when appropriate. Patient was informed and verbally consented to the use of an ambient scribe for clinic note documentation during this visit. Discussion Notes I've discussed with the patient the importance of routinely monitoring elevated TSH and the potential need for further diagnostic work-up, including a thyroid ultrasound if indicated by the upcoming lab values. We reviewed the current plan for BPH management and agreed that alfuzosin remains effective. The indication for ensuring periodic CT imaging of the chest was reiterated, capturing ongoing surveillance needs. I addressed the importance of consistent hydration to manage the newly recognized kidney stone and offered dietary insights for cardiovascular health maintenance. Additionally, potential musculoskeletal therapeutic measures were highlighted to offset cervical spine symptoms. A conversation on vaccine compliance included the pertinence of a pending tetanus shot and future shingles prophylaxis, shedding light on ensuring comprehensive patient vaccination without cooper. The patient has conveyed understanding and willingness to adhere to provided guidance. Patient Instructions - Continue monitoring thyroid function, and maintain a follow-up lab appointment to reassess TSH levels. - Hydrate well, aiming for fluids enriched with lemon to assist in kidney stone management. - Engage in regular exercise and physical activity to maintain health and manage weight. - Schedule a tetanus booster shot, if not received in coordination with the pharmacy visit. - Include dietary adjustments conducive to maintaining healthy cholesterol levels. - Implement measures such as raising the head of your bed to help alleviate occasional heartburn. - Be consistent with periodic meals and not lie down shortly after eating. - Be aware of potential allergic reactions linked to ambient factors, like candle use, and avoid triggers. - Note any changes in physical symptoms and seek care as needed. - Adhere to upcoming scan schedules and laboratory test appointments as outlined. Orders: Orders Rubella IgG Antibody 4 Weeks N40.1 - Benign prostatic hyperplasia with lower urinary tract symptoms, R35.0 - Frequency of micturition, Z02.0 - Encounter for examination for admission to [facility] Varicella IgG Antibody 4 Weeks N40.1 - Benign prostatic hyperplasia with lower urinary tract symptoms, R35.0 - Frequency of micturition, Z02.0 - Encounter for examination for admission to [facility] Rubeola IgG (Measles) 4 Weeks N40.1 - Benign prostatic hyperplasia with lower urinary tract symptoms, R35.0 - Frequency of micturition, Z02.0 - Encounter for examination for admission to [facility] Mumps Virus IgG Antibody 4 Weeks N40.1 - Benign prostatic hyperplasia with lower urinary tract symptoms, R35.0 - Frequency of micturition, Z02.0 - Encounter for examination for admission to [facility] Medications: New omeprazole 20 mg PO DAILY PRN 30 caps 1RF gerd K21.9 - Gastro-esophageal reflux disease without esophagitis
[2024-10-01 10:35] VITALS: BP 130/70; PULSE 80; TEMP 36.6; O2SAT 96; BMI 32.6
--- OUTSIDE RECORDS SUMMARY | 2024-10-01 12:22 | XMS_ITS | Clinical Summary ---
Author Organization [facility] Address [address] [place] [address] Phone Care Team Providers Care Bartender Helper Name Role Phone Viri Malhotra MD Primary Care Provider [phone] Allergies Active Allergy Reactions Criticality Noted Date Comments Lisinopril Cough Medium 12/27/2021 Penicillins Rash 12/27/2021 Tamsulosin Medium 2023 Jaundice Medications cholecalcifero l (VITAMIN D-3) 25 mcg (1,000 unit) tablet Take by mouth. Active alfuzosin (UROXATRAL) 10 mg 24 hr tablet Take 1 tablet (10 mg total) by mouth 1 (one) time each day. Do not crush, chew, or split. Active docusate sodium (COLACE) 100 mg capsule Take 1 capsule (100 mg total) by mouth 2 (two) times a day. 09/25/19 25 Discontinued Active Problems Problem Noted Date Diagnosed Date History of lung cancer 09/26/2024 Assessment & Plan (09/26/2024 2:55 PM EDT): Mr. Brush is a 69 y.o. 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 This was done on 12/13/2021. While in office we did review his most recent chest CT scan which was performed on 09/15/2024 at [facility] and again shows no developing pulmonary nodules or thoracic lymphadenopathy to suggest recurrence or metastatic disease in the chest. He was reeducated of our surveillance program for carcinoid tumors which is a CAT scan every 6 months for the first 2 years postoperatively followed by yearly for 8 years after that at least due to its overall slow growth. His next chest CT scan will be due in September 2025 and have a thoracic surgical appointment thereafter to discuss results. Carcinoid tumor of right lung 09/20/2023 Overview [...] overall slow growth. All questions were answered. 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 Patient was educated he will continue to follow with the thoracic surgical department at [facility] every 6 months following his surgery with a chest CT surveillance scan for the first 2 years following his surgery. At the end of [address] surveillance will be increased to every 12 months for 3 years thereafter for a total surveillance time of 5 years. Due to patient's staging he will also be referred to medical oncology at [facility] for discussion of any further treatment options. Encounters Date Type Department Care Team Description 2024 11:00 AM EDT Office Visit Thoracic Surgery - [address] [address] Rashad Best, [place] History of lung cancer (Primary Dx) 09/15/2024 2:52 PM EST - 09/15/2024 11:59 PM EST Hospital Encounter [facility] CT Scan [address] [place] [address] History of lung cancer Discharge Disposition: Home or Self Care from Last 3 Months Surgical History Surgery Date Site/Laterality Comments OTHER SURGICAL HISTORY 12/13/2021 Right PROCEDURE: MD THORACOSCOPY W/LOBECTOMY SINGLE LOBE; COMMENT: RUL Lobectomy, mediastinal lymphadenectomy. Carcinoid tumor, 1+ lymph node. OTHER SURGICAL HISTORY 2021 PROCEDURE: PULMONOLOGY BRONCHOSCOPY OTHER SURGICAL HISTORY 2015 PROCEDURE: LAPAROSCOPY, INGUINAL HERNIA REPAIR CATARACT EXTRACTION 2017 PROCEDURE: HISTORICAL CATARACT REMOVAL OTHER SURGICAL HISTORY 2018 PROCEDURE: MD EXC HYDROCELE SPRMATIC CORD UNI SPX OTHER SURGICAL HISTORY 1972 PROCEDURE: MANDIBULAR DENTURE PROSTH OTHER SURGICAL HISTORY 2017 PROCEDURE: COLONOSCOPY, SURGICAL Medical History Medical History Date Comments Basal cell carcinoma DX:Basal ce ll carcinoma; COMMENT: arm Carpal tunnel syndrome DX:Carpal tunnel syndrome Crohn's disease (CMS/HCC) 1993 DX:Section Beamer hn's disease (HCC) Peripheral vascular disease (CMS/HCC) [...] Information Value Date Recorded Sex Assigned at Male 09/12/2024 1:29 PM EST Legal Sex Male 11:09 AM EST Gender Identity Male 09/12/2024 1:29 PM EST Sexual Orientation Straight 09/15/2024 2: 47 PM EST Obstetrics History Last Filed Vital Signs Vital Sign Reading Time Taken Comments Blood Pressure 139/83 2024 11:16 AM EDT Pulse 81 2024 11:16 AM EDT Temperature 36.9 ??C (98.4 ??F) 2024 11:16 AM E DT Respiratory Rate 16 2024 11:16 AM EDT Oxygen Saturation 98% 2024 11:16 AM EDT Inhaled Oxygen Concentration - - Weight 103 kg (226 lb 12.8 oz) 2024 11:16 AM EDT Height 177.8 cm (5' 10 ) 2024 11:16 AM EDT Body Mass Index 32.54 2024 11:16 AM EDT Plan of Treatment Health Maintenance Due Date Last Done Comments Zoster Vaccines (1 of 2) 1974 Cholesterol Screening (Lipid Panel) 06/13/2022 Colorectal Cancer Screening: Colonoscopy 06/13/2022 Depression Screening 06/13/2022 Falls Risk Assessment 06/13/2022 Hepatitis C Screening 06/13/2022 Medicare Annual Wellness Visit 06/13/2022 Social Influencers of Health Screening 06/13/2022 DTaP,Tdap,and Td Vaccines (2 - Td or Tdap) 12/04/2024 12/04/2014 Pneumococcal Vaccine: 50+ Years Completed 05/26/2021, 10/03/2018 RSV Immunization Patients 60+ Years Old Completed 04/29/2023 Influenza Vaccine Completed 05/03/2024, , 05/08/2022, Additional history exists COVID-19 Vaccine Completed 05/28/2024, 10/2022, 05/08/2022, Additional history exists HIB Vaccines Aged Out No longer eligi [...] to complete this topic RSV Immunization Patients Under 20 months Aged Out No longer eligible based on patient's age to complete this topic Varicella Vaccines Aged Out No longer eligible based on patient's age to complete this topic Procedures Procedure Name Priority Date/Time Associated Diagnosis Comments CT CHEST WO CONTRAST Routine 09/15/2024 3:02 PM EST History of lung cancer from Last 3 Months Results * CT Chest wo Contrast (09/15/2024 3:02 PM EST) Anatomical Region Laterality Modality Body Computed Tomogra phy 09/17/2024 12:5 4 PM EST Impressions 09/17/2024 1:02 PM EST Impression: 1. Stable right upper lobectomy sequelae. 2. No developing pulmonary nodules or thoracic lymphadenopathy. Telerad BETO ([id number]) -------- FINAL REPORT -------- Dictated By: Reena Puga Dictated Date: 09/17/2024 12:54 ET Assigned Physician: Reena Puga Reviewed and Electronically Signed By: Reena Puga Signed Date: 09/17/2024 13:02 ET Workstation ID: [id number] Transcribed By: Self Edit Transcribed Date: 09/17/2024 12:54 ET Narrative 09/17/2024 1:02 PM EST History: Follow-up status post right upper lobectomy and mediastinal lymphadenectomy for carcinoid tumor. Known thyroid nodule. Surveillance imaging. Comparison: 09/06/23 Technique: Helical volumetric imaging of the thorax was performed without IV contrast. DLP: 161.93 mGy/cm FDTEK VCT Iterative reconstruction technique Findings: Right upper lobectomy sequelae are again noted. The trachea and remaining central bronchial tree are patent. Mild centrilobular emphysema is noted. Rare calcified pulmonary nodules are consistent with healed granulomas. No suspicious developing nodules are seen. No pleural or pericardial effusions are identified. The heart remains normal in size. The ascending thoracic aortic diameter is 4 cm, unchanged. No developing thoracic lymphadenopathy is seen. No thyroid nodule is identified. A small portion of the upper abdomen included on the lowest images through the thorax is remarkable for right renal cysts, partially imaged, and a 3 mm nonobstructing right renal calculus. The regional skeleton is intact. Procedure Note Reena Puga MD - 09/17/2024 History: Follow-up status post right upper lobectomy and mediastinallymphadenectomy for carcinoid tumor. Known thyroid nodule. Surveillanceimaging. Comparison: 09/06/23 Technique: Helical volumetric imaging of the thorax was performed withoutIV contrast. DLP: 161.93 mGy/cm FDTEK VCT Iterative reconstruction technique Findings: Right upper lobectomy sequelae are again noted. The trachea and remainingcentral bronchial tree are patent. Mild centrilobular emphysema is noted.Rare calcified pulmonary nodules are consistent with healed granulomas. Nosuspicious developing nodules are seen. No pleural or pericardial effusions are identified. The heart remains normal in size. The ascending thoracic aortic diameteris 4 cm, unchanged. No developing thoracic lymphadenopathy is seen. Nothyroid nodule is identified. A small portion of the upper abdomen included on the lowest images throughthe thorax is remarkable for right renal cysts, partially imaged, and a 3mm nonobstructing right renal calculus. The regional skeleton is intact. IMPRESSION: Impression: 1. Stable right upper lobectomy sequelae. 2. No developing pulmonary nodules or thoracic lymphadenopathy. Victrix [place] ([id number]) -------- FINAL REPORT -------- Dictated By: Reena Puga Dictated Date: 09/17/2024 12:54 ET Assigned Physician: Reena Puga Reviewed and Electronically Signed By: Reena Puga Signed Date: 09/17/2024 13:02 ET Workstation ID: [id number] Transcribed By: Self Edit Transcribed Date: 09/17/2024 12:54 ET Amy Jesus STEREOTYPER APPRENTICE IMG CT PROCEDURES Final Res ult from Last 3 Months Insurance BLUE CROSS - CT (ANTHEM) MEDICARE ADVANTAGE Advance Directives Documents on File Type Date Recorded Patient Boiler House Supervisor Expl anation Health Care Decision (hx) 12/05/2021 JEAN-PIERRE GALICIA DIRECTIVE Care Teams Bartender Helper Relationship Specialty Start Date End Date Viri Malhotra MD [address] [place] [address] [address] [facility] [place] [address] PCP - General Internal Medicine 12/16/21
--- OUTSIDE RECORDS SUMMARY | 2024-10-01 12:22 | XMS_ITS | Encounter Summary ---
Author Organization [facility] Address [address] [place] [address] Care Team Providers Care Judicial Assistant Name Role Phone Viri Malhotra MD Primary Care Provider [phone] Reason for Referral * Imaging (Routine) - Closed Specialty Diagnoses / Procedures Referred By Georgina hoffmann Referred To Contact Radiology Diagnoses History of lung cancer Procedures CT Chest wo Contrast Amy Jesus NP [address] [address] Phone: tel: fax: [facility] Referral ID Status Reason Start Date Expiration Date Visits Re quested Visits Authorized [id number] Closed 07/25/2024 07/25/2025 1 1 Reason for Visit * Imaging (Routine) - Closed Specialty Diagnoses / Procedures Referred By Georgina hoffmann Referred To Contact Radiology Diagnoses History of lung cancer Procedures CT Chest wo Contrast Amy Jesus NP [address] [address] Phone: tel: fax: [facility] Referral ID Status Reason Start Date Expiration Date Visits Re quested Visits Authorized [id number] Closed 07/25/2024 07/25/2025 1 1 Encounter Details Date Type Department Care Team (Latest Contact Info) Description 09/15/2024 2:52 PM EST - 09/15/2024 11:59 PM EST Hospital Encounter [facility] CT Scan [address] [place] [id number] History of lung cancer Discharge Disposition: Home or Self Care Social History Tobacco Use Types Packs/Day Years [...] Orientation Straight 09/15/2024 2: 47 PM EST documented as of this encounter Medications at Time of Discharge cholecalciferol (VITAMIN D-3) 25 mcg (1,000 unit) tablet Take by mouth. docusate sodium (COLACE) 100 mg capsule Take 1 capsule (100 mg total) by mouth 2 (two) times a day. 2024 documented as of this encounter Discharge Disposition Disposition Code Departure Means Destination Home or Self Care documented in this encounter Plan of Treatment Not on file documented as of this encounter Procedures Procedure Name Priority Date/Time Associated Diagnosis Comments CT CHEST WO CONTRAST Routine 09/15/2024 3:02 PM EST History of lung cancer documented in this encounter Results * CT Chest wo Contrast (09/15/2024 3:02 PM EST) Anatomical Region Laterality Modality Body Computed Tomogra phy 09/17/2024 12:5 4 PM EST Impressions 09/17/2024 1:02 PM EST Impression: 1. Stable right upper lobectomy sequelae. 2. No developing pulmonary nodules or thoracic lymphadenopathy. Teleelizabeth PÉREZ ([id number]) -------- FINAL REPORT -------- Dictated By: Reena Puga Dictated Date: 09/17/2024 12:54 ET Assigned Physician: Reena Puga Reviewed and Electronically Signed By: Reena Puga Signed Date: 09/17/2024 13:02 ET Workstation ID: [id number] Transcribed By: Self Edit Transcribed Date: 09/17/2024 12:54 ET Narrative 09/17/2024 1:02 PM EST History: Follow-up status post right upper lobectomy and mediastinal lymphadenectomy for carcinoid tumor. Known thyroid nodule. Surveillance imaging. Comparison: 09/06/23 Technique: Helical volumetric imaging of the thorax was performed without IV contrast. DLP: 161.93 mGy/cm GE Wavebornpeed VCT Iterative reconstruction technique Findings: Right upper [...] was performed withoutIV contrast. DLP: 161.93 mGy/cm GE Wavebornpeed VCT Iterative reconstruction technique Findings: Right upper [...] No developing pulmonary nodules or thoracic lymphadenopathy. [email or web address] BETO ([id number]) -------- FINAL REPORT -------- Dictated By: Reena Puga Dictated Date: 09/17/2024 12:54 ET Assigned Physician: Reena Puga Reviewed and Electronically Signed By: Reena Puga Signed Date: 09/17/2024 13:02 ET Workstation ID: [id number] Transcribed By: Self Edit Transcribed Date: 09/17/2024 12:54 ET us Amy Jesus MANAGER UTILIZATION REVIEW IMG CT PROCEDURES Final Res ult documented in this encounter Visit Diagnoses Diagnosis History of lung cancer Personal history of malignant neoplasm of bronchus and lung documented in this encounter Care Teams Judicial Assistant Relationship Specialty Start Date End Date Viri Malhotra MD [address] [place] [address] [address] [facility] [place] [address] PCP - General Internal Medicine 12/16/21 documented as of this encounter
--- OUTSIDE RECORDS SUMMARY | 2024-10-01 12:23 | XMS_ITS | Continuity of Care Document ---
Author Organization [facility] [address] [facility] [address] [place] [address] Phone [phone] Care Team Providers Care Belt Cleaner Name Role Phone Po, Lormelisaver Care Team Information Tool/Die Maker [phone] Problems Active Problems Provider Date Carpal tunnel [...] Facility Test Result H/L Range N ote TSH 03/14/2024 [facility] TSH 3.250 uIU/mL 0.450-4.500 Thyroxine (T4) Free, Direct 03/14/2024 [facility] Thyroxine (T4) Free, Direct 1.15 ng/dL 0.82-1.77 [...] to Dr Reason for Referral Status Appt Willian Cuellar MD [facility] HURTHLE CELL NEOPLASM Closed 08/23/2023 (New Patient Referral Only) Michael Dockery M.D. Closed [address] [place] [address] [address] [place] [address] [phone]
--- OUTSIDE RECORDS SUMMARY | 2024-10-01 12:23 | XMS_ITS | Patient Health Record ---
Author Organization [facility] Address [address] [place] [address] Care Team Providers Care Metal Stamping Machine Operator Name Role Phone Po Viri VANESSA Primary Care Provider Benito Meeks [phone] Allergies Allergen (clinical drug ingredient) Drug/Non Drug Allergy documented on EMR Reaction Allergy Type Onset Date Status lisinopril Lisinopril Unknown Drug Allergy Activ e Penicillin Unknown Drug Allergy Active Reason For Referral No Information Medications Medication SIG (Take, Route, Frequency, Duration) Notes [...] affected eye Ophthalmic every 4 hrs Active Immunizations Vaccine Route Administration Date Status Comme nts Influenza Unknown 05/16/2021 Administered Problems Problem Type SNOMED Code ICD Code Onset Dates Problem Status W/U Status Risk Notes Problem 876895528 Encounter for screening for malignant neoplasm of colon (Z12.11) Active confirmed Problem Jaundice (32544453) Jaundice (R17) Active confirmed Problem 25870475 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) Active confirmed Problem Elevated liver enzymes level (158983081) Elevated liver function tests (R94.5) Active confirmed Plan Of Treatment Pending Test Test Name Order Date LIVER PROFILE 03/21/2022 LIVER PROFILE 01/17/2022 Liver Panel 07/14/2022 Future Test Test Name Order Date COLONOSCOPY 10/16/2012 COLONOSCOPY 10/26/2017 Insurance Providers Payer Name Payer Address Payer Phone Subscriber Number Group Number Insured Name Patient Relationship to Insured Coverage Start Date Coverage End Date [facility] [employer] [facility] [address] [place] [address] [phone] [id number] MIGUELITO ABEL Self - patient is the insured Medical (General) History Medical History History ICD Code Ulcerative proctitis-diagnos ed in 1993- colonoscopy was in 03/2013-minimal distal proctitis-all biopsies negative for colitis/dysplasia-mild diverticulosis was noted as well. Denies [place],DM,CVA,Lung disease,renal dise ase RUL carcinoid tumor with [...] and umbilical hernias rep aired--Dr. Patel at [facility] Basal cell cancer on arm RUL resection for the carcinoid tumor Dr Kaitlynn Moore Right testicle surgery with Dr. Alissa mcdonald
--- OUTSIDE RECORDS SUMMARY | 2024-10-01 12:23 | XMS_ITS | Encounter Summary ---
Author Organization [facility] Address [address] [place] [address] Care Team Providers Care Professor Of Architecture Name Role Phone Viri Malhotra MD Primary Care Provider [phone] Reason for Referral * Imaging (Routine) - Pending Review Specialty Diagnoses / Procedures Referred By Contac t Referred To Contact Radiology Diagnoses History of lung cancer Procedures CT Chest wo Contrast Rashad Best PA [address] [address] Phone: tel: fax: [facility] [address] [place] [address] Phone: tel: Referral ID Status Reason Start Date Expiration Date V isits Requested Visits Authorized [id number] Pending Review 09/26/2024 09/26/2025 1 1 Reason for Visit * Reason Comments Follow-up Chest CT 09/15/24 Encounter Details Date Type Department Care Team (Late st Contact Info) Description 2024 11:00 AM EDT Office Visit Thoracic Surgery - [place] [address] [phone] Rashad Best PA [address] [address] History of lung cancer (Primary Dx) Social History Tobacco Use Types Packs/Day Years [...] PM EST documented as of this encounter Last Filed Vital Signs Vital Sign Reading [...] Mass Index 32.54 2024 11:16 AM EDT documented in this encounter Progress Notes * BETO Winter - 09/26/2024 2:55 PM EDTAssociated Problem(s): History of lung cancer Mr. Brush is a 69 y.o. 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 This was done on 12/13/2021. While in office we did review his most recent chest CT scan which was performed on 09/15/2024 at [facility] and again shows no developing pulmonary nodules [...] thoracic surgical appointment thereafter to discuss results. * BETO Winter - 2024 11:00 AM EDT Images from the original note were not included. Thoracic Surgery Follow Up Visit Patient name: Jovanny Brush : 1955 Date of Visit: September 26, 2024 Care Team PCP: Viri Malhotra MD Reason for Visit Chief Complaint Patient presents with Follow-up Chest CT 09/15/24 History of Present Illness Mr. Brush is a 69 y.o. 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 This was done on 12/13/2021. Since then has had serial CT scans which have showed no evidence of recurrence or new disease. He was last seen in our office 1 year ago at which point in time his chest CT scan showed no concerning pulmonary nodules or mediastinal lymphadenopathy. While in office we did review his most recent chest CT scan which was performed on 09/15/2024 at [facility] And again shows no developing pulmonary nodules or thoracic lymphadenopathy to suggest recurrence or metastatic disease in the chest. He denies any concerning symptoms such as new or worsening shortness of breath, fever, chills, hemoptysis, drenching night sweats or unintentional weight loss. He was reeducated of our surveillance program for carcinoid tumors which is a CAT scan every 6 months for the first 2 years postoperatively followed by yearly for 8 years after that at least due to its overall slow growth. Past Medical History: Diagnosis Date Basal cell carcinoma DX:Basal cell carcinoma; COMMENT: arm Carcinoid tumor of lung (CMS/HCC) 2021 DX:Carcinoid tumor of lung Carpal tunnel syndrome DX:Carpal tunnel syndrome Cataract DX:Cataract COVID-19 DX:COVID-19 Crohn's disease (CMS/HCC) 1993 DX:Crohn's disease (HCC) Degenerative disc disease, cervical DX:Degenerative disc disease, cervical Elevated LFTs DX:Elevated LFTs Ground glass opacity present on imaging of lung DX:Ground glass opacity present on imaging of lung Migraine DX:Migraine Obesity with body mass index (BMI) of 30.0 to 39.9 DX:Obesity with body mass index (BMI) of 30.0 to 39.9 Osteoporosis 09/20/2023 DX:Osteoporosis Other seborrheic keratosis DX:Other seborrheic keratosis Peripheral vascular disease (CMS/HCC) DX:Peripheral vascular disease (HCC) Pulmonary nodule DX:Pulmonary nodule; COMMENT: right upper lobe Schamberg's disease DX:Schamberg's disease Patient Active Problem List Diagnosis Carcinoid tumor of right lung (CMS/HCC) History of lung cancer Past Surgical History: Procedure Laterality Date CATARACT EXTRACTION 2017 PROCEDURE: HISTORICAL CATARACT REMOVAL OTHER SURGICAL HISTORY Right 12/13/2021 PROCEDURE: MO THORACOSCOPY W/LOBECTOMY SINGLE LOBE; COMMENT: RUL Lobectomy, mediastinal lymphadenectomy. Carcinoid tumor, 1+ lymph node. OTHER SURGICAL HISTORY 2021 PROCEDURE: PULMONOLOGY BRONCHOSCOPY OTHER SURGICAL HISTORY 2015 PROCEDURE: LAPAROSCOPY, INGUINAL HERNIA REPAIR OTHER SURGICAL HISTORY 2018 PROCEDURE: MO EXC HYDROCELE SPRMATIC CORD UNI SPX OTHER SURGICAL HISTORY 1972 PROCEDURE: MANDIBULAR DENTURE PROSTH OTHER SURGICAL HISTORY 2017 PROCEDURE: COLONOSCOPY, SURGICAL Allergies Allergen Reactions Lisinopril Cough Tamsulosin Jaundice Penicillins Rash Current Outpatient Medications on File Prior to Visit Medication Sig Dispense Refill alfuzosin (UROXATRAL) 10 mg 24 hr tablet Take 1 tablet (10 mg total) by mouth 1 (one) time each day. Do not crush, chew, or split. cholecalciferol (VITAMIN D-3) 25 mcg (1,000 unit) tablet Take by mouth. [DISCONTINUED] docusate sodium (COLACE) 100 mg capsule Take 1 capsule (100 mg total) by mouth 2 (two) times a day. No current facility-administered medications on file prior to visit. Social History Tobacco Use Smoking status: Never Smokeless tobacco: Never Substance Use Topics Alcohol use: Yes Drug use: Never Social History Social History Narrative Not on file Review of Systems Remaining 10 point review of systems negative at this time: Physical Exam Vitals: 09/24/24 1116 BP: 139/83 BP Location: Left arm Patient Position: Sitting BP Cuff Size: Adult long Pulse: 81 Resp: 16 Temp: 36.9 ??C (98.4 ??F) TempSrc: Temporal SpO2: 98% Weight: 103 kg (226 lb 12.8 oz) Height: 1.778 m (70 ) General: Patient is sitting comfortably in no acute distress, well developed, well nourished Head: Normocephalic, atraumatic, symmetric Eyes: Sclera anicteric, eyelids without edema or erythema, +EOMS intact ENT: Oral mucosa and tongue are moist without lesions or exudates Neck: Soft, supple, symmetric, trachea midline, no crepitus, no mass visualized or palpated Cardiovascular: Regular rate and rhythm, no murmur/rubs/gallops, BUE and BLE without edema, no calftenderness bilaterally Respiratory: Lungs CTA B, breathing nonlabored, speaking in full sentences, on room air. No use of accessory muscles. No obvious chest wall abnormality or deformity Gastrointestinal: Soft, non-tender, non-distended, +normoactive bowel sounds. Lymphatic: no cervical, supraclavicular, infraclavicular, or other lymphadenopathy noted Neurological: Alert and oriented x 3, neurologic exam is grossly normal Psychiatric: No agitation, appropriate affect Chest Wall: No new nodularity. Incision line clean, dry and intact; no signs of erythema, induration or drainage. Pathology Micro / Labs Radiology I personally viewed the patient's current and past imaging studies, in addition to reviewing the dictated report from the reading radiologist. 09/26/24 CT Chest wo Contrast Narrative: History: Follow-up status post right upper lobectomy and mediastinal lymphadenectomy forcarcinoid tumor. Known thyroid nodule. Surveillance imaging. Comparison: 09/06/23 Technique: Helical volumetric imaging of the thorax was performed without IV contrast. DLP: 161.93 mGy/cm [facility] VCT Iterative reconstruction technique Findings: Right upper [...] the lowest images through the thorax is remarkablefor right renal cysts, partially imaged, and a 3 mm nonobstructing right renal calculus. The regional skeleton is intact. Impression: Impression: 1. Stable right upper lobectomy sequelae. 2. No developing pulmonary nodules or thoracic lymphadenopathy. [facility] [place] ([id number]) -------- FINAL REPORT -------- Dictated By: Reena Puga Dictated Date: 09/17/2024 12:54 ET Assigned Physician: Reena Puga Reviewed and Electronically Signed By: Reena Puga Signed Date: 09/17/2024 13:02 ET Workstation ID: [id number] Transcribed By: Self Edit Transcribed Date: 09/17/2024 12:54 ET Assessment and Plan Problem List Items Addressed This Visit History of lung cancer - Primary Mr. Brush is a 69 y.o. 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 This was done on 12/13/2021. While in office we did review his most recent chest CT scan which was performed on 09/15/2024 at [facility] and again shows no developing pulmonary nodules [...] thoracic surgical appointment thereafter to discuss results. BETO Winter [facility] Thoracic Surgery [address] [place] [address], [address] [place] [phone] documented in this encounter Plan of Treatment Scheduled Orders Name Type Priority Associated Diagnoses Orde r Schedule CT Chest wo Contrast Imaging Routine History of lung cancer Expected: 09/26/2025, Expires: 09/26/2025 documented as of this encounter Visit Diagnoses Diagnosis History of lung cancer- Primary Personal history of malignant neoplasm of bronchus and lung documented in this encounter Discontinued Medications Medication Sig Discontinue Reason Start Date End Da te docusate sodium (COLACE) 100 mg capsule Take 1 capsule (100 mg total) by mouth 2 (two) times a day. 2024 documented as of this encounter Historical Medications * This list may reflect changes made after this encounter. alfuzosin (UROXATRAL) 10 mg 24 hr tablet Take 1 tablet (10 mg total) by mouth 1 (one) time each day. Do not crush, chew, or split. added in this encounter Care Teams Professor Of Architecture Relationship Specialty Start Date End Date Viri Malhotra MD [address] [place] [address] [address] [facility] [place] [address] PCP - General Internal Medicine 12/16/21 documented as of this encounter
== END 2024-10-01 11:37 | disposition home or self-care (01) ==
LOC: HO.HMCH 10:28
PROVIDERS: PCP Internal Medicine; Visit Provider Internal Medicine
DX: Z00.00 Encounter for general adult medical examination without abnormal findings (principal); C73 Malignant neoplasm of thyroid gland; D3A.090 Benign carcinoid tumor of the bronchus and lung; R79.89 Other specified abnormal findings of blood chemistry; E04.2 Nontoxic multinodular goiter; N40.1 Benign prostatic hyperplasia with lower urinary tract symptoms; R35.0 Frequency of micturition; N20.0 Calculus of kidney; K21.9 Gastro-esophageal reflux disease without esophagitis

== ENCOUNTER → 2024-10-01 10:27 | Outpatient (BNVA) | payer MEDICARE, SELFPAY | PROVIDERS: PCP Internal Medicine; Visit Provider Internal Medicine | DX: Z00.00 Encounter for general adult medical examination without abnormal findings (principal); R79.89 Other specified abnormal findings of blood chemistry; C73 Malignant neoplasm of thyroid gland; E04.2 Nontoxic multinodular goiter; N40.1 Benign prostatic hyperplasia with lower urinary tract symptoms; R35.0 Frequency of micturition; N20.0 Calculus of kidney; K21.9 Gastro-esophageal reflux disease without esophagitis | CPT/HCPCS: 99397 ==

== ENCOUNTER 2024-10-29 10:45 | Outpatient (REF) | payer MEDICARE, SELFPAY ==
--- OUTSIDE RECORDS SUMMARY | 2024-10-29 12:45 | XMS_ITS | Patient Health Record ---
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) Active confirmed Problem Elevated liver enzymes level (305124917) Elevated liver function tests (R94.5) Active confirmed Plan Of Treatment Pending Test Test Name Order Date LIVER PROFILE 03/21/2022 LIVER PROFILE 01/17/2022 Liver Panel 07/14/2022 Future Test Test Name Order Date COLONOSCOPY 10/16/2012 COLONOSCOPY 10/26/2017 Insurance Providers Payer Name Payer Address Payer Phone Subscriber Number Group Number Insured Name Patient Relationship to Insured Coverage Start Date Coverage End Date [facility] PROF[employer] CLAIMS [address] [place] [address] [phone] [id number] MIGUELITO ABEL Self - patient is the insured Medical (General) History Medical History History ICD Code Ulcerative proctitis-diagnos ed in 1993- colonoscopy was in 03/2013-minimal distal proctitis-all biopsies negative for colitis/dysplasia-mild diverticulosis was noted as well. Denies AK,DM,CVA,Lung disease,renal dise ase RUL carcinoid tumor with [...] and umbilical hernias rep aired--Dr. Patel at [facility] Basal cell cancer on arm RUL resection for the carcinoid tumor Dr Kaitlynn Moore Right testicle surgery with Dr. Alissa mcdonald
--- OUTSIDE RECORDS SUMMARY | 2024-10-29 12:45 | XMS_ITS | Continuity of Care Document ---
Author Organization [facility] [address] [place] [address] Phone [phone] Care Team Providers Care Fruit Room Hand Name Role Phone Po, Lormelisaver Care Team Information Hot Wire Glass Tube Cutter [phone] Problems Active Problems Provider Date Carpal tunnel [...] NEOPLASM Closed 08/23/2023 (New Patient Referral Only) [phone] Michael Dockery M.D. Closed [address] [place] [address] [address] [place] [address] [phone]
--- OUTSIDE RECORDS SUMMARY | 2024-10-29 12:45 | XMS_ITS | Clinical Summary ---
Author Organization [facility] Address [address] [place] [address] Phone Care Team Providers Care Sewing Machine Adjuster Name Role Phone Viri Malhotra MD Primary Care Provider [phone] Allergies Active Allergy Reactions Criticality Noted Date Comments Lisinopril Cough Medium 12/27/2021 Penicillins Rash 12/27/2021 Tamsulosin Medium 2023 Jaundice Medications cholecalciferol (VITAMIN D-3) 25 mcg (1,000 unit) tablet Take by mouth. Active alfuzosin (UROXATRAL) 10 mg 24 hr tablet Take 1 tablet (10 mg total) by mouth 1 (one) time each day. Do not crush, chew, or split. Active Active Problems Problem Noted Date Diagnosed [...] scan which was performed on 09/15/2024 at [facility] and again shows no developing pulmonary nodules [...] discuss results. 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 Patient was educated he will continue to follow with the thoracic surgical department at [facility] every 6 months following his surgery with a chest CT surveillance scan for the first 2 years following his surgery. At the end of [address] surveillance will be increased to every 12 months for 3 years thereafter for a total surveillance time of 5 years. Due to patient's staging he will also be referred to medical oncology at [facility] for discussion of any further treatment options. Encounters Date Type Department Care Team Description 2024 11:00 AM EDT Office Visit Thoracic Surgery - [address] [address] Rashad Best, PA History of lung cancer (Primary Dx) 09/15/2024 2:52 PM EST - 09/15/2024 11:59 PM EST Hospital Encounter [facility] CT Scan [address] [place] [address] History of lung cancer Discharge Disposition: Home or Self Care from Last 3 Months Surgical History Surgery Date Site/Laterality Comments OTHER SURGICAL HISTORY 12/13/2021 Right PROCEDURE: NM THORACOSCOPY W/LOBECTOMY SINGLE LOBE; COMMENT: RUL Lobectomy, mediastinal lymphadenectomy. Carcinoid tumor, 1+ lymph node. OTHER SURGICAL HISTORY 2021 PROCEDURE: PULMONOLOGY BRONCHOSCOPY OTHER SURGICAL HISTORY 2015 PROCEDURE: LAPAROSCOPY, INGUINAL HERNIA REPAIR CATARACT EXTRACTION 2017 PROCEDURE: HISTORICAL CATARACT REMOVAL OTHER SURGICAL HISTORY 2018 PROCEDURE: NM EXC HYDROCELE SPRMATIC CORD UNI SPX OTHER SURGICAL HISTORY 1972 PROCEDURE: MANDIBULAR DENTURE PROSTH OTHER SURGICAL HISTORY 2017 PROCEDURE: COLONOSCOPY, SURGICAL Medical History Medical History Date Comments Basal cell carcinoma DX:Basal ce ll carcinoma; COMMENT: arm Carpal tunnel syndrome DX:Carpal tunnel syndrome Crohn's disease (CMS/HCC V24 , CMS/HCC V28) 1993 DX:Crohn's disease (HCC) Peripheral vascular disease (CMS/HCC V24) DX:Peripheral vascular disea se (HCC) Schamberg's disease DX:Schamberg 's disease Degenerative disc disease, cervical DX:Degenerative disc disease, cervical Pulmonary nodule DX:Pulmonary no dule; COMMENT: right upper lobe Carcinoid tumor of lung (CMS/HCC V28) 2021 DX:Carcinoid tumor of lung Cataract DX:Cataract [...] 06/13/2022 Social Influencers of Health Screening 06/13/2022 COVID-19 Vaccine (7 - Pfizer risk 2023- season) 2024 05/28/2024, 04/18/2023, 05/08/2022, Additional history exists DTaP,Tdap,and Td Vaccines (2 - Td or Tdap) 12/04/2024 12/04/2014 Pneumococcal Vaccine: 50+ Years Completed 05/26/2021, 10/03/2018 RSV Immunization Adult Patients Completed 04/29/2023 Influenza Vaccine Completed 05/03/2024, , 05/08/2022, Additional history exists HIB Vaccines Aged [...] age to complete this topic Meningococcal B Vaccine Aged Out No l onger eligible based on patient's age to complete [...] developing pulmonary nodules [place] [facility] [place] ([id number]) -------- FINAL REPORT -------- Dictated By: Reena Puga Dictated Date: 09/17/2024 12:54 ET Assigned Physician: Reena Puga Reviewed and Electronically Signed By: Reena Puga Signed Date: 09/17/2024 13:02 ET Workstation ID: [id number] Transcribed By: Self Edit Transcribed Date: 09/17/2024 12:54 ET Narrative 09/17/2024 1:02 PM EST History: Follow-up status post right upper lobectomy and mediastinal lymphadenectomy for carcinoid tumor. Known thyroid nodule. Surveillance imaging. Comparison: 09/06/23 Technique: Helical volumetric imaging of the thorax was performed without IV contrast. DLP: 161.93 mGy/cm [employer] [facility] Iterative reconstruction technique Findings: Right upper lobectomy [...] was performed withoutIV contrast. DLP: 161.93 mGy/cm [facility] VCT Iterative reconstruction technique Findings: Right upper [...] No developing pulmonary nodules or thoracic lymphadenopathy. [facility] [place] ([id number]) -------- FINAL REPORT -------- Dictated By: Reena Puga Dictated Date: 09/17/2024 12:54 ET Assigned Physician: Reena Puga Reviewed and Electronically Signed By: Reena Puga Signed Date: 09/17/2024 13:02 ET Workstation ID: [id number] Transcribed By: Self Edit Transcribed Date: 09/17/2024 12:54 ET us Amy Jesus ELECT[employer]IAN SHIP IMG CT PROCEDURES Final Res ult from Last 3 Months Insurance BLUE CROSS - CT ([place]) MEDICARE ADVANTAGE Advance Directives Documents on File Type Date Recorded Patient Personal Lines Appraiser Expl anation Health Care Decision (hx) 12/05/2021 JEAN-PIERRE GALICIA DIRECTIVE Care Teams Sewing Machine Adjuster Relationship Specialty Start Date End Date Viri Malhotra MD [address] [place] [address] [address] [facility] [place], [place] [id number] PCP - General Internal Medicine 12/16/21
--- OUTSIDE RECORDS SUMMARY | 2024-10-29 12:45 | XMS_ITS | Continuity of Care Document ---
Author Organization [facility] Address [address] [place] [address] Phone Care Team Providers Care Consumer Loan Specialist Name Role Phone Hernandez VANESSA, THOMAS, OLUIS, Benito Unavailable U navailable Allergies, Adverse Reactions, Alerts Substance Reaction Status Criticality tamsulosin Active No Information PENICILLIN Active No Information lisinopril Active No Information Procedures Procedure Date Office/Outpt E&M Established 10 Mins- CT & [place] Duplex Scan-extrem Veins; Comp- CT & [place] Duplex Scan-extrem Veins; Uni/ CT & [place] M Endovenous Rf, 1st Vein- CT & [place] 2024 Duplex Scan-extrem Veins; Uni/ CT & [place] F Endovenous Rf, 1st Vein- CT & [place] 2024 Offic/outpt E&m Estab 5 Min Trial- Telem edicine CT & [place] Office/Oupt E&M New Pt 30 Mins- CT & [place] Surgical Stockings Mediven Comfort Thigh 20-30 & 30-40 Duplex Scan-extrem Veins; Comp- CT & [place] Advance Directives Directive Yes / No Effective Date File Name Other Directive No 10/14/2024 N/A WARNING:The information contained in this section is historical and is provided for information only and does not constitute a legal document or any assurance that the information is still accurate. Please verify the information with the lawrence of the legal document before using it for clinical purposes. Encounters Encounter Description Practice Location Reason(s) For Visit Diagnoses Date Provider Providers Copied on Encounter Office/Outpt E&M Established 10 Mins- [place] & [place] Jocelyn [facility], [address] [place] [address] [address] [place], [id number], [place] tel:[phone] [facility] Localized edemaVenous insufficiency (chronic) (peripheral) Oct-0 5 Hernandez VAENSSA RVT, RPVI Robert. [address] [address], [place], [place], [id number] , [place]. tel: [phone] Referring Provider: Viri Malhotar MD, [address] [facility] [address] [place] [address] [place], [address]. [phone] Jocelyn [facility], [address] [place] [address] Dr Ross [address], [id number], [place] tel:[phone] [facility] Chronic venous hypertension (idiopathic) with other complications of bilateral lower extremity Oct-0 5 Hernandez VANESSA RVT, RPVI Robert. [address] [address], [place], [place], [id number] , [place]. tel: [phone] Referring Provider: Viri Malhotra MD, [address] [place] [address] [place] [address] [place], [address]. tel:[phone] Jocelyn [facility], [address] [place] [address] Dr Ross [address], [id number], [place] tel:[phone] [facility] Encounter for follow-up examination after completed treatment for conditions other than malignant neoplasmVaric ose veins of left lower extremity with pain Sep-0 5 Hernandez VANESSA RVT, RPVI Robert. [address] [place] [address], [address] [address], [place], [place], [id number] , [place]. tel: [phone] Referring Provider: Viri Malhotra MD, [address] [facility] [address] [place] [address] [place], [address]. tel:[phone] Jocelyn [facility], [address] [place] [address] Dr [address] [place], [id number], [place] tel:[phone] [facility] Chronic venous hypertension (idiopathic) with inflammation of left lower extremity Aug- 5 Hernandez VANESSA RVT, LOUIS Oliver. [facility], [address], [place], [place], [id number] , [place]. tel:[phone] Referring Provider: Viri Malhotra MD, [address] [place] [address] [place], [address]. tel:[phone] Jocelyn For [facility], [address] [place] [address] [address], [id number], [place] tel:[phone] [facility] Encounter for follow-up examination after completed treatment for conditions other than malignant neoplasmChron ic venous hypertension (idiopathic) with other complications of right lower extremity 5 Hernandez VANESSA RVT, LOUIS Oliver. [address] [place] [address], [place], [place], [id number] , [place]. tel:[phone] Referring Provider: Viri Malhotra MD, [address] [place] [address] [place], [address]. tel:[phone] Jocelyn For [facility], [address] [place] [address] [address] [place], [id number], [place] tel:[phone] [facility] Chronic venous hypertension (idiopathic) with inflammation of right lower extremity b- 5 Hernandez VANESSA RVT, LOUIS Oliver. [address] [place] [address], [address], [place], [place], [id number] , [place]. tel:[phone] Referring Provider: Viri Malhotra MD, [address], [address]. tel:[phone] [facility]oc[facility], [address] [place] [address] [address] [place], [id number], [place] tel:[phone] [facility] - [place] - [place] No Information 5 Hernandez VANESSA RVT, LOUIS Oliver. [address] [facility], [address], [facility] [place], [id number] , [place]. tel:[phone] Offic/outpt E&m Estab 5 Min Trial- Telemedicine CT & [place] [facility], [address] [place] [address] [address], [id number], [place] tel:[phone] [facility] [place] [facility] [place] Chronic venous hypertension (idiopathic) with other complications of bilateral lower extremity 5 Hernandez VANESSA RVT, LOUIS Oliver. [address] [facility], [address], [facility] [place], [id number] , [place]. [phone] Referring Provider: Viri Malhotra MD, [address] [place] [address] Dr [address] [facility] [place], [address]. tel:[phone] Office/Oupt E&M New Pt 30 Mins- CT & [place] Irene [facility], [address] [place] [address] [address], [id number], [place] tel:[phone] [facility] [place] Varicose veins of bilateral lower extremities with other complications Pain in right lower legPain in left lower legPain in right legPhlebitis and thrombophlebi tis of superficial vessels of right lower extremityPain in left legLocalized edema 4 Hernandez VANESSA RVT, LOUIS Oliver. [address] [facility], [address], [place], [id number] , [place]. tel:[phone] [facility], [address] [place] [address] [address], [place], [id number], [place] tel:[phone] [facility] [place] Chronic venous hypertension (idiopathic) with other complications of bilateral lower extremity 4 Hernandez VANESSA RVT, LOUIS Oliver. [address] [facility], [address], [facility] [place], [id number] , [place]. [phone] Referring Provider: Viri Malhotra MD, [address] [place] [address] Dr [address] [facility], [place], [address]. tel:[phone] Family History Family Member Type Diagnosis Age At Onset No Information Payers Payer name Insurance type Covered alliance party ID Vicenta justin(s) [place] [id number] Social History Type Description Quantity Date Captured Comments Alcohol Use Details Unknown Caffeine Use Details Unknown Tobacco Use Status Current non-smoker Smoking Status Never Smoker Non-Smoking Tobacco Use Details : No Details Available : No Details Available Sex Male Vital Signs Date / Time: Height Weight BMI Pulse Rate Blood Pressure Temperature Respiratory Rate Body Surface Area Head Circumference Head Circ. Percentile Wt./Rosalino. Percentile BMI percentile Pulse Ox Inhaled Ox 104.330 kg (230.00 lbs) 33.1 5 kg/m eter (2) 120/80 mm[Hg] Chief Complaint And Reason For Visit No Information Reason For Referral Reason For Referral No Information Plan Of Treatment Date Type Action Status Goal Diet education completed Goal Diet education completed Referral Ordered: Weight management: Referral to physician timeframe: 3 Months (related to Body mass index (BMI) 33.0-33.9, adult) ordered Referral Ordered: Weight management: Referral to physician timeframe: 3 Months (related to Body mass index (BMI) 33.0-33.9, adult) ordered Appointment Jovanny Brush (3 Month) BOOK ED Appointment Jovanny Brush (3 Month) BOOK ED History Of Present Illness Encounter Date Complaint History Of Prese nt Illness No Information Functional Status Date Functional Assessmen t No Information Instructions Date Instruction Additional Infor mation Lifestyle education Related to B abdirashid mass index (BMI) 33.0-33.9, adult Compression stocking usage as conservative measure Related to Venous insufficiency (chronic) (peripheral) Patient education booklet given Related to Venous insufficiency (chronic) (peripheral) Diet education Related to Body mass index (BMI) 33.0-33.9, adult Giving Encouragement to exercise Related to Body mass index (BMI) 33.0-33.9, adult Patient education booklet given Related to Chronic [...]
[2024-10-30 06:29] LABS: Rubeola IgG (Measles) >300.00 AU/mL
== END 2024-10-29 10:46 | disposition home or self-care (01) ==
LOC: HO.HMGCLDS 10:45
PROVIDERS: PCP Internal Medicine; Visit Provider Internal Medicine
DX: Z02.0 Encounter for examination for admission to educational institution (principal); N40.1 Benign prostatic hyperplasia with lower urinary tract symptoms; N13.8 Other obstructive and reflux uropathy; R35.0 Frequency of micturition
CPT/HCPCS: 36415; 86735; 86762; 86765; 86787

== ENCOUNTER 2025-04-03 09:46 | Outpatient (AMB) | payer MEDICARE, SELFPAY ==
[2025-04-03 09:49] VITALS: BP 124/72; PULSE 80; O2SAT 98; BMI 33.0
--- NOTE | 2025-04-03 09:49 | A.OFFPC_ITS ---
Vital Signs 04/03/25 09:49 Height 5 ft 10 in Weight 230 lb BMI 33.0 BP 124/72 Blood Pressure Location Lt brachial Position Sitting Pulse 80 Pulse Source Pulse Oximeter Pulse Oximetry (%) 98 Oxygen Delivery Method Room Air Intake Visit Reasons: BPH, carcinoid tumor gerd Allergies penicillin V Allergy (Unknown, Verified 04/03/25 09:49) u Penicillins (PENICILLINS) Allergy (Unknown, Verified 04/03/25 09:49) RASH lisinopril Adverse Reaction (Intermediate, Verified 04/03/25 09:49) cough tamsulosin Adverse Reaction (Intermediate, Verified 04/03/25 09:49) jaundice Tobacco use date assessed: 10/01/24 Fall risk assessment: No Falls in past year Last assessed Fall Risk: 04/03/25 Dental Screening Dental Screen Date: 09/04/24 HPI BPH, carcinoid tumor gerd HPI Details PAtient did see the thyroid doctor, Dr. Beltran and just had the blood work done. TSH monitor for now. hoarseness 3 months states end of January- cough- no sore throat, [facility] Medical History (Updated 04/03/25 @ 10:17 by Viri Malhotra MD) Peripheral vascular disease Thyroid mass COVID-19 virus infection Ground glass opacity present on imaging of lung Hospital discharge follow-up Elevated LFTs Carcinoid tumor of lung (~2021) Pulmonary nodule 1 cm or greater in diameter Cataract Verruca Obesity with body mass index (BMI) of 30.0 to 39.9 Basal cell carcinoma, arm Schamberg's disease Migraine Crohn's disease (~1993) Degenerative disc disease, cervical Carpal tunnel syndrome Surgical History History of lobectomy of lung (~2021) History of bronchoscopy (~2021) History of hydrocelectomy (~2018) History of surgery on arm History of mandibular surgery (~1972) History of colonoscopy (~2017) History of cataract surgery (~2017) History of inguinal hernia repair (~2015) Family History Mother Stroke Father Skin cancer (melanoma) Paternal Grandfather Skin cancer (melanoma) Paternal Uncle FHx: cancer of prostate Leukemia Paternal Uncle Cancer Social History (Updated 10/01/24 @ 11:13 by Viri Malhotra MD) Household Members: Significant Other Housing: House Alcohol intake: current Alcohol intake frequency: holidays/special occasions only Alcohol type: beer Comment: discharged home- 1-2 a week 1-2 bottles of beer, 2 x a month 1-2 beers (3 Patient Tobacco Use Status: Never used Tobacco Tobacco use type: Cigarette e-Cigarette/Vaping Use: Never Used Second Hand Smoke Exposure: No service: No Current occupational status: retired Cognitive needs: No Hearing needs: No Vision needs: Yes Questionnaire Thrive Questionnaire Date Thrive assessed: 10/01/24 I am a: Patient What is your living situation today?: I have a steady place to live Within the past 12 months, did the food you bought not last and you didn't have the money to get more?: Never true Within the past 12 months, did you worry whether your food would run out before you got money to buy more?: Never true Do you have trouble paying for medicines?: No Do you have trouble getting transportation to medical appointments?: No Do you have trouble paying your heating and electricity bill?: No Do you have trouble taking care of your child, family member or friend?: No Do you have trouble with day-to-day activities such as bathing, preparing meals, shopping, managing finances, etc.?: No Are you currently unemployed and looking for a job?: No Are you interested in more education?: No Please select the resources that you would like help with: None Currently or been in a relationship where the following occur: No concerns reported THRIVE Score: 0 CAPRI-7 AMB Questionnaire CAPRI-7 Date CAPRI - 7 assessed: 10/01/24 Source: Developed by Drs. Benito Colbert, Serena Buckley, Rito Padgett and colleagues, with an educational chu from [employer]. Physical exam (Primary Care) Vital Signs: Last Vital Signs Pulse 80 04/03/25 09:49 BP 124/72 04/03/25 09:49 Pulse Ox 98 04/03/25 09:49 Oxygen Delivery Method Room Air 04/03/25 09:49 BMI result Body Mass Index 33.0 Tobacco/Smoking Status: Tobacco use Status Tobacco use date assessed 10/01/24 04/03/25 09:50 Patient Tobacco Use Status Never used Tobacco 04/03/25 09:50 Tobacco use type Cigarette 04/03/25 09:50 e-Cigarette/Vaping Use Never Used 04/03/25 09:50 Thrive Assessment: Date of Thrive Assessment Date Thrive assessed 10/01/24 04/03/25 09:50 Currently or been in a relationship where the following occur: No concerns reported Const General: alert; No acute distress Eyes Conjunctivae: conjunctivae normal Resp Auscultation: clear to auscultation bilaterally Cardio Rate: regular rate Rhythm: regular rhythm GI Inspection: Yes normal to inspection Extrem General: Yes normal to inspection and No edema Coding Level of Care Code Est Pt Level 4 (91656) Complex EM visit Add On G2211 Diagnoses Peripheral vascular disease I73.9 TSH elevation R79.89 Senile cataract of left eye, unspecified age-related cataract type H25.9 Age-related cataract type: unspecified Cataract type: age-related Laterality: left 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.513 Laterality: bilateral GERD (gastroesophageal reflux disease) K21.9 Benign prostatic hyperplasia with urinary frequency N40.1; R35.0 Lower urinary tract symptom detail: urinary frequency Lower urinary tract symptom presence: symptoms present Hoarseness of voice R49.0 Carcinoid tumor of lung D3A.090 Assessment & Plan Assessment & Plan (1) Peripheral vascular disease: Code(s): I73.9 - Peripheral vascular disease, unspecified Category: Medical Plan: Patient is being followed up by the vascular surgeon and When sitting down elevate the legs, exercise, and support stockings (2) TSH elevation: Code(s): R79.89 - Other specified abnormal findings of blood chemistry Category: Medical Plan: Patient was advised to have a repeat blood work (3) Cataract: Comment: left Code(s): H26.9 - Unspecified cataract Category: Medical Qualifiers: Age-related cataract type: unspecified Cataract type: age-related Laterality: left Qualified Code(s): H25.9 - Unspecified age-related cataract Plan: Patient is being followed up by Ophthalmology discussed about options of surgical/medical (4) Fuchs' corneal dystrophy: Code(s): H18.519 - Endothelial corneal dystrophy, unspecified eye Category: Medical Qualifiers: Laterality: bilateral Qualified Code(s): H18.513 - Endothelial corneal dystrophy, bilateral Plan: Patient is being followed up by Ophthalmology (5) GERD (gastroesophageal reflux disease): Code(s): K21.9 - Gastro-esophageal reflux disease without esophagitis Category: Medical Plan: Avoid the foods that causes that usually spicy foods, tomato products, juices, coffee, soda and foods that your sensitive to. After eating do not lie down, allow 3-4 hours before in lie down. And keep the head of bed above 30 degrees to avoid the acid from going up. (6) BPH (benign prostatic hyperplasia): Code(s): N40.0 - Benign prostatic hyperplasia without lower urinary tract symptoms Category: Medical Qualifiers: Lower urinary tract symptom detail: urinary frequency Lower urinary tract symptom presence: symptoms present Qualified Code(s): N40.1 - Benign prostatic hyperplasia with lower urinary tract symptoms; R35.0 - Frequency of micturition Plan: Continue with present medication and Urology (7) Hoarseness of voice: Code(s): R49.0 - Dysphonia Category: Medical (8) Carcinoid tumor of lung: Onset Date: ~2021 Comment: Atypical carcinoid/Neuroendocrine tumor grade 2 (s/p Da Gen RUL lobectomy on 12/13/21) August 2022surveillance imaging as per protocol which is a CT scan every 6 months for the 1st 2 years postoperatively followed by yearly for 7 years after . 08/2023 Code(s): D3A.090 - Benign carcinoid tumor of the bronchus and lung Category: Medical Plan: surveilance CT - states has one this year already 2024 Plan History of Present Illness The patient is a 69-year-old male presenting with persistent hoarseness. The hoarseness began approximately three months ago and has been associated with a dry cough. The patient denies sore throat, fever, or ear pain but reports a sensation of stiffness in the throat area. 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 He is scheduled for a thyroid ultrasound in July 2024 to monitor his condition. The patient has a history of lung cancer and has been undergoing regular follow- ups with Dr. Byrd, including annual CT scans. The most recent scan in August 2023 showed stable findings. The patient has been diagnosed with superficial venous reflux in the bilateral legs and deep venous reflux in the right leg. He underwent ablation of the lower extremity veins in August 2024 and is currently managing the condition with compression stockings. The patient has a history of squamous cell carcinoma, for which he underwent a biopsy and was advised to use topical chemotherapy. He is scheduled for a follow-up with dermatology next month. The patient has a history of benign prostatic hyperplasia and is currently taking Alfuzosin. He reports occasional difficulty urinating, which he associates with dietary factors. The patient has a history of cataracts and Fuchs' endothelial dystrophy, and he is being followed by ophthalmology. Surgical options have been discussed, but t he patient prefers to delay intervention. The patient has a history of acid reflux, which he reports has been well- controlled recently. He has been advised to take omeprazole for a month to assess its impact on his hoarseness. Health Maintenance - Vaccinations: Tetanus shot due, flu shot recommended in April, COVID-19 vaccine advised - Screening: Thyroid ultrasound scheduled for July 2024 - Follow-up: Dermatology follow-up scheduled for next month Social History - Exercise: Patient is advised to keep active to manage weight Review of Systems - Respiratory: Reports hoarseness and dry cough; denies sore throat, fever, or ear pain - Gastrointestinal: Denies heartburn or acid reflux recently Physical Exam - Oral: No pain reported during examination - Ears: No pain reported - Respiratory: Lungs clear to auscultation bilaterally Results - Labs: Mildly elevated TSH noted, follow-up advised - Imaging: CT scan in August 2023 showed stable lung findings Plan Patient was informed and verbally consented to the use of an ambient scribe for clinic note documentation during this visit. 1. Hoarseness The patient is experiencing persistent hoarseness, which began approximately three months ago and is associated with a dry cough. An ENT referral has been made to evaluate the vocal cords, and omeprazole has been prescribed to assess if reflux is contributing to the symptoms. 2. 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 A thyroid ultrasound is scheduled for July 2024 to monitor the condition. 3. Lung Cancer The patient has a history of lung cancer and is under regular surveillance with annual CT scans. The most recent scan in August 2023 showed stable findings. 4. Superficial Venous Reflux The patient has superficial venous reflux in the bilateral legs and deep venous reflux in the right leg. He underwent ablation in August 2024 and is managing the condition with compression stockings. 5. Squamous Cell Carcinoma The patient has a history of squamous cell carcinoma and was treated with topical chemotherapy. A follow-up with dermatology is scheduled for next month. 6. Benign Prostatic Hyperplasia (Bph) The patient has benign prostatic hyperplasia and is taking Alfuzosin. He reports occasional difficulty urinating, which he associates with dietary factors. 7. Cataracts The patient has cataracts and Fuchs' endothelial dystrophy. He is being followed by ophthalmology, and surgical options have been discussed, though the patient prefers to delay intervention. 8. Acid Reflux The patient has a history of acid reflux, which is currently well-controlled. Omeprazole has been prescribed for a month to evaluate its effect on hoarseness. Discussion Notes During the visit, we discussed the patient's persistent hoarseness and the potential causes, including reflux and possible vocal cord issues. I recommended an ENT referral for further evaluation and prescribed omeprazole to manage potential reflux-related symptoms. We also reviewed the patient's history of thyroid cancer, lung cancer, and venous reflux, ensuring ongoing monitoring and management plans are in place. Patient Instructions - Take omeprazole as prescribed for one month to help with hoarseness. - Continue wearing compression stockings for venous reflux management. - Follow up with ENT as scheduled for hoarseness evaluation. - Attend scheduled thyroid ultrasound in July 2024. - Maintain regular follow-ups with dermatology and ophthalmology. - Keep active to manage weight and overall health. Orders: Referrals Ear/Nose/Throat Referral R49.0 - Dysphonia Medications: New omeprazole 20 mg PO DAILY 30 caps 0RF R49.0 - Dysphonia
--- OUTSIDE RECORDS SUMMARY | 2025-04-03 10:22 | XMS_ITS | Clinical Summary ---
Author Organization [facility] Address [address] [place] [address] Phone Care Team Providers Care Casting Inspector Name Role Phone Viri Malhotra MD Primary Care Provider [phone] Allergies Active Allergy Reactions Criticality Noted Date [...] scan which was performed on 09/15/2024 at [facility] and again shows no developing pulmonary nodules [...] discuss results. 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 Patient was educated he will continue to follow with the thoracic surgical department at [facility] every 6 months following his surgery with a chest CT surveillance scan for the first 2 years following his surgery. At the end of [address] surveillance will be increased to every 12 months for 3 years thereafter for a total surveillance time of 5 years. Due to patient's staging he will also be referred to medical oncology at [facility] for discussion of any further treatment options. Surgical History Surgery Date Site/Laterality Comments OTHER SURGICAL HISTORY 12/13/2021 Right PROCEDURE: [place] THORACOSCOPY W/LOBECTOMY SINGLE LOBE; COMMENT: RUL Lobectomy, mediastinal lymphadenectomy. Carcinoid tumor, 1+ lymph node. OTHER SURGICAL HISTORY 2021 PROCEDURE: PULMONOLOGY BRONCHOSCOPY OTHER SURGICAL HISTORY 2016 PROCEDURE: LAPAROSCOPY, INGUINAL HERNIA REPAIR CATARACT EXTRACTION 2017 PROCEDURE: HISTORICAL CATARACT REMOVAL OTHER SURGICAL HISTORY 2018 PROCEDURE: [place] EXC HYDROCELE SPRMATIC CORD UNI SPX OTHER [...] right upper lobe Carcinoid tumor of lung ([facility] V28) 2021 DX:Carcinoid tumor of lung Cataract [...] 81 2024 11:16 AM EDT Temperature 36.9 C (98.4 F) 2024 11:16 AM EDT Respiratory Rate 16 2024 11:16 AM EDT [...] Panel) 06/13/2022 Colorectal Cancer Screening: Colonoscopy 06/13/2022 Falls Risk Assessment 06/13/2022 Hepatitis C Screening 06/13/2022 Medicare Annual Wellness Visit 06/13/2022 Social Influencers of Health Screening 06/13/2022 Depression Screening 07/16/2024 DTaP,Tdap,and Td Vaccines (2 - Td or Tdap) 12/04/2024 12/04/2014 COVID-19 Vaccine (7 - Pfizer risk 2023- season) 2025 05/28/2024, 04/18/2023, 05/08/2022, Additional history exists Influenza Vaccine (#1) 2025 , 04/18/2023, 05/08/2022, Additional history exists Pneumococcal Vaccine: 50+ Years Completed 05/26/2021, 10/03/2018 RSV Immunization Adult Patients Completed 04/29/2023 HIB Vaccines Aged Out No longer eligi [...] patient's age to complete this topic Insurance [facility] (ANTH) MEDICARE ADVANTAGE [facility] Advance Directives Documents on File Type Date Recorded Patient Dip Dyer Expl anation Health Care Decision (hx) 12/05/2021 JEAN-PIERRE GALICIA DIRECTIVE Care Teams Casting Inspector Relationship Specialty Start Date End Date Viri Malhotra MD [address] [place] [address] [address] [facility] [place] [address] PCP - General Internal Medicine 12/16/21
== END 2025-04-03 10:29 | disposition home or self-care (01) ==
LOC: HO.HMCH 09:47
PROVIDERS: PCP Internal Medicine; Visit Provider Internal Medicine
DX: I73.9 Peripheral vascular disease, unspecified (principal); R79.89 Other specified abnormal findings of blood chemistry; H25.9 Unspecified age-related cataract; D3A.090 Benign carcinoid tumor of the bronchus and lung; H18.513 Endothelial corneal dystrophy, bilateral; K21.9 Gastro-esophageal reflux disease without esophagitis; N40.1 Benign prostatic hyperplasia with lower urinary tract symptoms; R35.0 Frequency of micturition; R49.0 Dysphonia

== ENCOUNTER → 2025-04-03 09:46 | Outpatient (BNVA) | payer MEDICARE, SELFPAY | PROVIDERS: PCP Internal Medicine; Visit Provider Internal Medicine | DX: N40.0 Benign prostatic hyperplasia without lower urinary tract symptoms (principal); I73.9 Peripheral vascular disease, unspecified; R79.89 Other specified abnormal findings of blood chemistry; H25.9 Unspecified age-related cataract; H18.513 Endothelial corneal dystrophy, bilateral; K21.9 Gastro-esophageal reflux disease without esophagitis; N40.1 Benign prostatic hyperplasia with lower urinary tract symptoms; R35.0 Frequency of micturition; R49.0 Dysphonia; D3A.090 Benign carcinoid tumor of the bronchus and lung; Z85.850 Personal history of malignant neoplasm of thyroid; Z85.828 Personal history of other malignant neoplasm of skin | CPT/HCPCS: 99212 ==

== ENCOUNTER 2025-07-14 09:36 | Outpatient (AMB) | payer MEDICARE, SELFPAY ==
[2025-07-14 09:45] VITALS: BP 122/76; PULSE 94; TEMP 37.2; O2SAT 96; BMI 33.1
--- NOTE | 2025-07-14 09:45 | MHC.OFFWIV ---
Intake Vital Signs 07/14/25 09:45 Height 5 ft 10 in Weight 231 lb BMI 33.1 BP 122/76 Blood Pressure Location Lt brachial Position Sitting Pulse 94 Pulse Source Pulse Oximeter Temp 99.0 F Temp Source Oral Pulse Oximetry (%) 96 Oxygen Delivery Method Room Air Intake Visit Reasons: EP Possible sinus infection Intake Note: pt presents with sinus congestion and post nasal drip for about a month Patient Tobacco Use Status: Never used Tobacco Allergies Penicillins (PENICILLINS) Allergy (Unknown, Verified 07/14/25 09:48) RASH lisinopril Adverse Reaction (Intermediate, Verified 07/14/25 09:48) cough tamsulosin Adverse Reaction (Intermediate, Verified 07/14/25 09:48) jaundice Do you need a note to return to daycare/school/sports/work: No HPI HPI Comments History of Present Illness Details Patient is a 69yo M who presents with ? sinusitis He has had symptoms intermittent since Thanksgiving + sinus congestion, green nasal mucus and sinus pressure Pressure helps with hot shower on face No SOB or chest tightness + post nasal drip at night and ST improved Minimal cough with post nasal drip but not throughout day Using cough drops, Tylenol PRN No bad headaches No fever or chills Denies ear pain PFSH Medical History (Updated 07/14/25 @ 10:00 by Mallory Mena PA-C) Peripheral vascular disease Thyroid mass COVID-19 virus infection Ground glass opacity present on imaging of lung Hospital discharge follow-up Elevated LFTs Carcinoid tumor of lung (~2021) Pulmonary nodule 1 cm or greater in diameter Cataract [place] Obesity with body mass index (BMI) of 30.0 to 39.9 Basal cell carcinoma, arm Schamberg's disease Migraine Crohn's disease (~1993) Degenerative disc disease, cervical Carpal tunnel syndrome Surgical History History of lobectomy of lung (~2021) History of bronchoscopy (~2021) History of hydrocelectomy (~2018) History of surgery on arm History of mandibular surgery (~1972) History of colonoscopy (~2017) History of cataract surgery (~2017) History of inguinal hernia repair (~2015) Family History Mother Stroke Father Skin cancer (melanoma) Paternal Grandfather Skin cancer (melanoma) Paternal Uncle FHx: cancer of prostate Leukemia Paternal Uncle Cancer Social History (Updated 10/01/24 @ 11:13 by Viri Malhotra MD) Household Members: Significant Other Housing: House Alcohol intake: current Alcohol intake frequency: holidays/special occasions only Alcohol type: beer Comment: discharged home- 1-2 a week 1-2 bottles of beer, 2 x a month 1-2 beers (3 Patient Tobacco Use Status: Never used Tobacco Tobacco use type: Cigarette e-Cigarette/Vaping Use: Never Used Second Hand Smoke Exposure: No service: No Current occupational status: retired Cognitive needs: No Hearing needs: No Vision needs: Yes Review of Systems Const Denies chills, Denies fatigue, Denies fever(s) and Denies headache(s) Eyes Denies change in vision ENT Denies otalgia, Denies headache(s), Reports nasal congestion, Reports nasal discharge, Reports sinus pain and Reports sore throat Card Denies chest pain and Denies dyspnea Resp Reports cough (only in am after post nasal drip) and Denies dyspnea Neuro Denies headache(s) Endo Denies fatigue Physical Exam Exam Exam: General: Non-toxic, NAD. Speaking full sentences. Skin: Warm dry throughout Eye: EOMI, PERRL HENT: Airway patent. Uvula midline. No pharyngeal erythema or edema. No INTELLIGENCE OFFICER BASIC. No septal hematoma. + slight frontal/ethmoid sinus ttp. Bilateral canals clear. TM non-erythematous, non-bulging. No TM perforation or hemotympanum noted. Respiratory: CTA bilaterally. No wheezes, rales or rhonchi Cardiac: RRR. No murmur MSK: Full ROM extremities. Neurology: Alert. No aphasia or facial droop. Gait without abnormality Psych: Good mood and affect Vital Signs: Last Vital Signs Temp 99.0 F 07/14/25 09:45 Pulse 94 07/14/25 09:45 BP 122/76 07/14/25 09:45 Pulse Ox 96 07/14/25 09:45 Oxygen Delivery Method Room Air 07/14/25 09:45 BMI result Body Mass Index 33.1 Assessment & Plan Assessment & Plan (1) Bacterial sinusitis: Code(s): J32.9 - Chronic sinusitis, unspecified; B96.89 - Other specified bacterial agents as the cause of diseases classified elsewhere Plan: Patient seen and evaluated. Will cover for bacterial sinusitis with Azithromycin (has worked well in past) Discussed humidifier, warm compress/shower face, fluids/rest F/U with PCP Patient gave verbal understanding and had no additional questions or concerns at time of discharge All questions answered Medications: New azithromycin For 250 mg dose pack: take 500 mg today (day 1), then 250 mg for 4 days (days 2-5) PO 6 tabs 0RF Coding Level of Care Code Est Pt Level 3 (28269) Diagnoses Bacterial sinusitis J32.9; B96.89
--- OUTSIDE RECORDS SUMMARY | 2025-07-14 12:22 | XMS_ITS | Patient Health Record ---
Author Organization [facility] Address [address] [place] [address] Care Team Providers Care Finished Yarn Examiner Name Role Phone Viri Malhotra MD Primary Care Provider Benito Meeks [phone] Allergies Allergen (clinical drug ingredient) Drug/Non Drug Allergy documented on EMR Reaction Allergy Type Onset Date Status Penicillin Unknown Drug Allergy Active lisinopril Lisinopril Unknown Drug Allergy Activ e Reason For Referral No Information Medications Medication SIG (Take, Route, Frequency, Duration) Notes Start Date End Date Status Cholecalciferol 25 MCG (1000 UT) Capsule 1 capsule Orally Once a day; Duration: 30 day(s) Active Cyanocobalamin 1000 MCG Tablet 1 tablet Orally Once a day; Duration: 30 day(s) Active Omeprazole 20 MG Tablet Delayed Release TAKE 1 TABLET BY MOUTH EVERY DAY AT 6:30 AM Oral; Duration: 30 Not-Taking/PRN Esteban 128 2 % Solution 1 drop into affected eye Ophthalmic every 4 hrs Active Immunizations Vaccine Route Administration Date Status Comme nts Influenza Unknown 05/16/2021 Administered Social History Social History Additional Details Category Social Info Options Details Miscellaneous: Marital status: 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: Nonsmoker; occasional alcoho l Nonsmoker; occasional alcoho l Nonsmoker; occasional alcoho l Problems Problem Type SNOMED Code ICD Code Onset Dates Problem Status W/U Status Risk Notes Problem Screening for malignant neoplasm of colon (372571225) Encounter for screening for malignant neoplasm of colon (Z12.11) Active confirmed Problem Jaundice (29965143) Jaundice (R17) Active confirmed Problem Chronic ulcerative proctitis (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, [address], [place], [address], Insurance Providers Payer Name Payer Address Payer Phone Subscriber Number Group Number Insured Name Patient Relationship to Insured Coverage Start Date Coverage End Date [facility] [address] [place] [address] [phone] [id number] MIGUELITO ABEL Self - patient is the insured Medical (General) History Medical History History ICD Code Ulcerative proctitis-diagnos ed in 1993- colonoscopy was in 03/2013-minimal distal proctitis-all biopsies negative for colitis/dysplasia-mild diverticulosis was noted as well. Denies MD,DM,CVA,Lung disease,renal dise ase RUL carcinoid tumor with [...] and umbilical hernias rep aired--Dr. Patel at [facility] Basal cell cancer on arm RUL resection for the carcinoid tumor Dr Kaitlynn Moore Right testicle surgery with Dr. Alissa mcdonald
--- OUTSIDE RECORDS SUMMARY | 2025-07-14 12:22 | XMS_ITS | Clinical Summary ---
Author Organization [facility] Address [address] [place] [address] Phone Care Team Providers Care Environmental Coordinator Name Role Phone Viri Malhotra MD Primary Care Provider [phone] Allergies Active Allergy Reactions Criticality Noted Date [...] scan which was performed on 09/15/2024 at [facility] and again shows no developing pulmonary [...] follow with the thoracic surgical department at [facility] every 6 months following his surgery with a chest CT surveillance scan for the first 2 years following his surgery. At the end of [address] surveillance will be increased to every 12 months for 3 years thereafter for a total surveillance time of 5 years. Due to patient's staging he will also be referred to medical oncology at [facility] for discussion of any further treatment options. Surgical History Surgery Date Site/Laterality Comments OTHER SURGICAL HISTORY 12/13/2021 Right PROCEDURE: [place] THORACOSCOPY W/LOBECTOMY SINGLE LOBE; COMMENT: RUL Lobectomy, mediastinal lymphadenectomy. Carcinoid tumor, 1+ lymph node. OTHER SURGICAL HISTORY 2021 PROCEDURE: PULMONOLOGY BRONCHOSCOPY OTHER SURGICAL HISTORY 2015 PROCEDURE: LAPAROSCOPY, INGUINAL HERNIA REPAIR CATARACT EXTRACTION 2017 PROCEDURE: HISTORICAL CATARACT REMOVAL OTHER SURGICAL HISTORY 2018 PROCEDURE: [place] EXC HYDROCELE SPRMATIC CORD UNI SPX OTHER SURGICAL HISTORY 1972 PROCEDURE: MANDIBULAR DENTURE PROSTH OTHER SURGICAL HISTORY 2017 PROCEDURE: COLONOSCOPY, SURGICAL Medical History Medical History Date Comments Basal cell carcinoma DX:Basal ce ll carcinoma; COMMENT: arm Carpal tunnel syndrome DX:Carpal tunnel syndrome Crohn's disease ([facility] V24 , [facility] V28) 1993 DX:Crohn's disease (HCC) Peripheral vascular disease ([facility] V24) DX:Peripheral vascular disea se (HCC) Schamberg's disease DX:Schamberg 's disease Degenerative disc disease, cervical DX:Degenerative disc disease, cervical Pulmonary nodule DX:Pulmonary no dule; COMMENT: right upper lobe Carcinoid tumor of lung ([facility] V28) 2021 DX:Carcinoid tumor of lung Cataract [...] Orientation Straight 09/15/2024 2: 47 PM EST Last Filed Vital Signs Vital Sign Reading [...] Health Maintenance Due Date Last Done Comments Colorectal Cancer Screening: Colonoscopy 1953 Zoster Vaccines (1 of 2) 1972 Cholesterol Screening (Lipid Panel) 06/13/2022 Falls Risk Assessment 06/13/2022 Hepatitis C Screening 06/13/2022 Medicare Annual Wellness Visit 06/13/2022 Social Influencers of Health Screening 06/13/2022 Depression Screening 07/16/2024 DTaP,Tdap,and Td Vaccines (2 - Td or Tdap) 12/04/2024 12/04/2014 COVID-19 Vaccine ( - season) 2025 05/28/2024, 04/18/2023, 05/08/2022, Additional history [...] patient's age to complete this topic Insurance [employer] (ANTH) MEDICARE ADVANTAGE [facility] Advance Directives Documents on File Type Date Recorded 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
== END 2025-07-14 10:05 | disposition home or self-care (01) ==
PROVIDERS: PCP Internal Medicine; Visit Provider Physician Assistant
DX: J32.9 Chronic sinusitis, unspecified (principal); B96.89 Other specified bacterial agents as the cause of diseases classified elsewhere

== ENCOUNTER → 2025-07-14 09:36 | Outpatient (BNVA) | payer MEDICARE, SELFPAY | PROVIDERS: PCP Internal Medicine; Visit Provider Physician Assistant | DX: J32.9 Chronic sinusitis, unspecified (principal); B96.89 Other specified bacterial agents as the cause of diseases classified elsewhere | CPT/HCPCS: 99212 ==